=== PATIENT | male | born 1985 | race Hispanic/Latino ===

== ENCOUNTER 2017-06-11 16:51 | Emergency (ER) | payer SELFPAY ==
--- OUTSIDE RECORDS SUMMARY | 2017-06-11 16:52 | XMS REPORT ---
:1985 [facility] Address Unavailable , Allergies, Adverse Reactions, Alerts Allergy Name Reaction Description Start Date Severity Status Provider Allergies Unknown Conditions or Problems Problem Name Problem Onset Status Entry Provider Comment Standard Annotate Code Date Date Description Problems Unknown Medication List Medication Instructions Start Stop Generic NDC Status Provider Patient Date Date Name Instruction Drug Treatment Unknown - unknown
[2017-06-11] MEDS ORDERED: ONDANSETRON 4 MG/2 ML VIAL ONE (19:24)
[2017-06-11] MEDS ORDERED: Morphine 2 MG/2 ML SYR ONE ×2 (19:26→19:30)
--- NOTE | 2017-06-11 19:40 | RAD REPORT ---
EXAM DESCRIPTION: CT - Stone Protocol - 06/11/2017 7:33 pm CLINICAL HISTORY: Right-sided abdominal pain and flank pain, prior left nephrectomy COMPARISON: CT study September 2013 TECHNIQUE: Axial 5 mm thick images were obtained without oral or IV contrast. The [id number] span s the entirety of the system partially obscuring uppermost abdomen and lung bases. All CT scans are performed using dose optimization technique as appropriate and may include automated exposure control or mA/KV adjustment according to patient size. FINDINGS: No hydronephrosis is present and no obstructing ureteral calculi. No suspicious renal mass es. Isodense masses and pyelonephritis are not excluded on a stone protocol CT scan. Urinary bladder is fully contracted limiting assessment. No bladder calculi. Imaged portions of the liver, spleen and pancreas show no suspicious findings on non-contrast imaging . No gallbladder or biliary tree abnormality identified. Gallstones can be occult. No right adrenal a bnormality. No suspicious bowel findings. Appendix is normal. No hernia, mass or bulky lymphadenopathy noted. No free air, free fluid or inflammatory stranding. No significant bony abnormality. IMPRESSION: Negative noncontrast CT abdomen and pelvis for acute finding. Isodense masses and pyelonephritis are not excluded on stone protocol technique. No significant change from the prior study.
[2017-06-11 20:01] LABS: Absolute Lymphocytes (CBC) 2.7 K/uL (0.7-4.9); Absolute Monocytes 0.4 K/uL (0.1-1.3); Absolute Neutrophil 5.3 K/uL (1.8-8.0); Basophils % 0.6 % (0-1.3); Bicarbonate 27 mEq/L (21-31); Eosinophils % 1.8 % (0-4.4); Glucose Level 91 mg/dL (65-120); Hematocrit 51.5 % (39.6-49.0); Lipase 35 U/L (22-51); Lymphocytes % 31.4 % (15.3-44.8); MCH 29.9 pg (27.0-35.0); MCV 88.2 fL (80-100); MPV 9.9 fL (7.6-11.3); Monocytes % 5.1 % (3.3-12.3); Potassium 3.7 mEq/L (3.6-5.0); RBC Red Blood Cell Count 5.84 M/uL (4.33-5.43); Sodium Level 140 mEq/L (135-145)
[2017-06-11 20:08] LABS: ALT/SGPT 32 IU/L (10-60); AST/SGOT 25 IU/L (10-42); Albumin 5.3 g/dL (3.2-5.5); Alkaline Phosphatase 82 IU/L (42-121); Amylase Level 118 U/L (28-100); BUN Blood Urea Nitrogen 11 mg/dL (6-20); Bilirubin Direct < 0.1 mg/dL (0-0.2); Bilirubin Total 0.5 mg/dL (0.3-1.2); Protein, Total 8.8 g/dL (6.0-8.3)
[2017-06-11 20:22] LABS: Urine Blood TRACE (NEG); Urine Glucose NEGATIVE (NEG); Urine Protein TRACE (NEG); Urine Specific Gravity >1.030 (1.005-1.030); Urine pH 5.5 (5.0-7.0)
[2017-06-11 20:27] LABS: Urine Bacteria <20 /HPF (NONE SEEN); Urine Culture Reflex Order NOT NEEDED; Urine RBC <5 /HPF (NONE SEEN)
--- NOTE | 2017-06-11 21:02 | EDPHYS ---
Physician Documentation [facility] Name: Camden Mitchell Age: 32 yrs Sex: Male : 1985 Arrival Date: 06/11/2017 Time: 16:54 Bed 20 Private MD: ED Physician Devonte Uribe HPI: 06/11 19:20 This 32 yrs old Male presents to ER via Ambulatory with complaints of Back cp Pain. 19:20 The patient presents with pain that is acute, with no known mechanism of injury. The cp symptoms are located in the right mid back. Onset: The symptoms/episode began/occurred 2 day(s) ago. The pain radiates to the abdomen. Associated signs and symptoms: Pertinent negatives: constipation, hematuria, incontinence, numbness, tingling, vomiting, weakness. Severity of symptoms: in the emergency department the symptoms are unchanged, despite home interventions. Historical: - Allergies: 16:59 Sulfa (Sulfonamide Antibiotics); hj - Home Meds: 16:59 None [Active]; hj - PMHx: 16:59 Hypertension; hj - PSHx: 16:59 One kidney removed; hj - Immunization history:: Adult Immunizations unknown. - Social history:: Smoking status: unknown. ROS: 19:25 Constitutional: Negative for body aches, chills, fever, poor PO intake. cp 19:25 Eyes: Negative for injury, pain, redness, and discharge. cp 19:25 ENT: Negative for drainage from ear(s), ear pain, sore throat, difficulty swallowing, difficulty handling secretions. 19:25 Cardiovascular: Negative for chest pain, edema, palpitations. 19:25 Respiratory: Negative for cough, shortness of breath, wheezing. 19:25 Abdomen/GI: Positive for abdominal pain, Negative for vomiting, diarrhea, constipation, black/tarry stool, rectal bleeding. 19:25 Back: Positive for pain at rest, of the right mid back. 19:25 : Negative for hematuria, testicular pain 19:25 Skin: Negative for cellulitis, rash. 19:25 Neuro: Negative for altered mental status, headache, numbness, weakness. 19:25 All other systems are negative. Exam: 19:30 Constitutional: The patient appears in no acute distress, alert, awake, non-toxic, well cp developed, well nourished. 19:30 Head/Face: Normocephalic, atraumatic. cp 19:30 Eyes: Periorbital structures: appear normal, Conjunctiva: normal, no exudate, no injection, Sclera: no appreciated abnormality, Lids and lashes: appear normal, bilaterally. 19:30 ENT: External ear(s): are unremarkable, Nose: is normal, Mouth: Lips: moist, Oral mucosa: pink and intact, moist, Posterior pharynx: is normal, airway is patent, no erythema, no exudate. 19:30 Neck: External neck: is normal, ROM/movement: is normal, is supple, without pain, no range of motions limitations, no nuchal rigidity. 19:30 Chest/axilla: Inspection: normal, Palpation: is normal, no crepitus, no tenderness. 19:30 Cardiovascular: Rate: normal, Rhythm: regular. 19:30 Respiratory: the patient does not display signs of respiratory distress, Respirations: normal, no use of accessory muscles, no retractions, no splinting, no tachypnea, labored breathing, is not present, Breath sounds: are clear throughout, no decreased breath sounds, no stridor, no wheezing. 19:30 Abdomen/GI: Inspection: abdomen appears normal, Bowel sounds: active, all quadrants, Palpation: soft, in all quadrants, mild abdominal tenderness, in the anterior aspect of right lateral abdomen, posterior aspect of right lateral abdomen, right upper quadrant and right lower quadrant, rebound tenderness, is not appreciated, involuntary guarding, is not appreciated. 19:30 Back: pain, that is mild, of the right mid back, ROM is normal. 19:30 Skin: cellulitis, is not appreciated, no rash present. 19:30 Neuro: Motor: moves all fours, strength is normal, Sensation: no obvious gross deficits, Gait: is steady. Vital Signs: 16:59 BP 146 / 102; Pulse 81; Resp 18; Temp 98.8(TE); Pulse Ox 98% on R/A; Weight 68.04 kg; hj Height 5 ft. 5 in. (165.10 cm); Pain 8/10; 19:48 BP 133 / 84; Pulse 76; Resp 17 S; Pulse Ox 98% on R/A; Pain 6/10; jd3 20:38 BP 120 / 90; Pulse 70; Resp 17 S; Pulse Ox 97% on R/A; Pain 6/10; jd3 16:59 Body Mass Index 24.96 (68.04 kg, 165.10 cm) hj MDM: 18:54 Patient medically screened. cp 20:45 Data reviewed: vital signs, nurses notes, lab test result(s), radiologic studies, CT cp scan. 06/11 19:12 Order name: Amylase, Serum; Complete Time: 20:16 cp 06/11 20:16 Interpretation: Abnormal: JAKE 118. cp 06/11 19:12 Order name: Basic Metabolic Panel; Complete Time: 20:16 cp 06/11 20:16 Interpretation: Normal except: GFR 84. cp 06/11 19:12 Order name: CBC with Diff; Complete Time: 20:16 cp 06/11 20:16 Interpretation: Normal except: RBC 5.84; HCT 51.5. cp 06/11 19:12 Order name: Creatinine for Radiology; Complete Time: 20:16 cp 06/11 19:12 Order name: Hepatic Function; Complete Time: 20:16 cp 06/11 19:12 Order name: Lipase; Complete Time: 20:16 cp 06/11 19:12 Order name: CT Stone Protocol; Complete Time: 19:49 cp 06/11 19:12 Order name: Urine Microscopic Only; Complete Time: 20:42 cp 06/11 20:42 Interpretation: Reviewed. cp 06/11 19:12 Order name: IV Saline Lock; Complete Time: 19:32 cp 06/11 19:12 Order name: Labs collected and sent; Complete Time: 19:32 cp 06/11 19:12 Order name: Urine Dipstick-Ancillary (obtain specimen); Complete Time: 19:32 cp 06/11 19:46 Order name: Urine Dipstick--Ancillary (enter results); Complete Time: 20:42 rg2 06/11 20:42 Interpretation: Normal except: USPGR >1.030; UBLD TRACE. cp Administered Medications: 19:40 Drug: Zofran 4 mg Route: IVP; Site: right antecubital; jd3 21:23 Follow up: Response: No adverse reaction; Nausea is decreased jd3 19:40 Drug: morphine 2 mg Route: IVP; Site: right antecubital; jd3 21:23 Follow up: Response: No adverse reaction; Pain is decreased jd3 Disposition: 06/11/17 21:01 Discharged to Home. Impression: Low back pain - Right. - Condition is Stable. - Discharge Instructions: Back Pain, Adult, Back Exercises, [id number]. - Prescriptions for Cyclobenzaprine 10 mg Oral Tablet - take 1 tablet by ORAL route every 8 hours As needed; 20 tablet. Tramadol 50 mg Oral Tablet - take 1 tablet by ORAL route every 8 hours as needed; 12 tablet. - Medication Reconciliation Form, Thank You Letter, Antibiotic Education, Prescription Opioid Use form. - Follow up: Private Physician; When: 2 - 3 days; Reason: Recheck today's complaints. - Problem is new. - Symptoms have improved. Addendum: 06/16/2017 06:38 Co-signature as Attending Physician, Devonte Uribe MD Available for consultation at p s1 all times. . Signatures: Dispatcher [employer] EDBrian Russell, RN RN Jameson Moreau PA PA cp Davies, Jonathon, RN RN Devonte Kay MD MD ps1
--- NOTE | 2017-06-11 21:02 | ER ---
Nurse's Notes [facility] Name: Camden Mitchell Age: 32 yrs Sex: Male : 1985 Arrival Date: 06/11/2017 Time: 16:54 Bed 20 Private MD: Diagnosis: Low back pain-Right Presentation: 06/11 16:57 Presenting complaint: Patient states: 2 days ago, i have this sharp pain on my R upper hj back, R flank; reports fever and chills; reports nausea; denies vomiting;. Transition of care: patient was not received from another setting of care. Onset of symptoms was June 11, 2017. Initial Sepsis Screen: Does the patient meet any 2 criteria? No. Patient's initial sepsis screen is negative. Does the patient have a suspected source of infection? No. Patient's initial sepsis screen is negative. Care prior to arrival: None. 16:57 Method Of Arrival: Ambulatory 16:57 Acuity: JENNIFER 3 hj Triage Assessment: 16:59 General: Appears in no apparent distress. uncomfortable, Behavior is calm, cooperative, hj appropriate for age. Pain: Complains of pain in posterior aspect of right lateral abdomen. Musculoskeletal: Capillary refill < 3 seconds. Historical: - Allergies: 16:59 Sulfa (Sulfonamide Antibiotics); hj - Home Meds: 16:59 None [Active]; hj - PMHx: 16:59 Hypertension; hj - PSHx: 16:59 One kidney removed; hj - Immunization history:: Adult Immunizations unknown. - Social history:: Smoking status: unknown. Screenin:50 Abuse screen: Denies threats or abuse. Nutritional screening: No deficits noted. jd3 Tuberculosis screening: No symptoms or risk factors identified. Fall Risk IV access (20 points). Mental Status- Oriented to own ability (0 pts). Total Douglass Fall Scale indicates No Risk (0-24 pts). Assessment: 19:14 General: Appears in no apparent distress. uncomfortable, Behavior is calm, cooperative, jd3 appropriate for age. Pain: Complains of pain in posterior aspect of right lateral abdomen Quality of pain is described as sharp. Neuro: Level of Consciousness is awake, alert, obeys commands, Oriented to person, place, time, situation. Cardiovascular: Capillary refill < 3 seconds Patient's skin is warm and dry. Respiratory: Airway is patent Respiratory effort is even, unlabored, Respiratory pattern is regular, symmetrical, Breath sounds are clear bilaterally. GI: Abdomen is round Bowel sounds present X 4 quads. Abd is soft and non tender X 4 quads. Reports nausea. : No signs and/or symptoms were reported regarding the genitourinary system. EENT: No signs and/or symptoms were reported regarding the EENT system. Derm: Skin is intact, Skin is dry, Skin is normal, Skin temperature is warm. Musculoskeletal: Circulation, motion, and sensation intact. Range of motion: intact in all extremities. 19:49 Reassessment: Patient appears in no apparent distress at this time. Patient and/or jd3 family updated on plan of care and expected duration. Pain level reassessed. Patient is alert, oriented x 3, equal unlabored respirations, skin warm/dry/pink. 20:39 Reassessment: Patient appears in no apparent distress at this time. Patient and/or jd3 family updated on plan of care and expected duration. Pain level reassessed. Patient is alert, oriented x 3, equal unlabored respirations, skin warm/dry/pink. 21:20 Reassessment: Patient appears in no apparent distress at this time. Patient and/or jd3 family updated on plan of care and expected duration. Pain level reassessed. Patient is alert, oriented x 3, equal unlabored respirations, skin warm/dry/pink. pt reported understanding of discharge instructions, even and steady gait upon discharge. Vital Signs: 16:59 BP 146 / 102; Pulse 81; Resp 18; Temp 98.8(TE); Pulse Ox 98% on R/A; Weight 68.04 kg; Height 5 ft. 5 in. (165.10 cm); Pain 8/10; 19:48 BP 133 / 84; Pulse 76; Resp 17 S; Pulse Ox 98% on R/A; Pain 6/10; jd3 20:38 BP 120 / 90; Pulse 70; Resp 17 S; Pulse Ox 97% on R/A; Pain 6/10; jd3 16:59 Body Mass Index 24.96 (68.04 kg, 165.10 cm) ED Course: 16:54 Patient arrived in ED. mr 16:58 Triage completed. 16:59 Arm band placed on left wrist. 18:54 Jameson Santana PA is PHCP. 18:54 Alpesh Tracy MD is Attending Physician. cp 19:10 Devonte Uribe MD is Attending Physician. cp 19:13 Jeffrey Wu, RN is Primary Nurse. jd3 19:18 Initial lab(s) drawn, by me, sent to lab. Inserted saline lock: 20 gauge in right cc antecubital area, using aseptic technique. Blood collected. 19:32 CT completed. Patient tolerated procedure well. Patient moved to CT via wheelchair. Patient moved back from CT. 19:33 CT Stone Protocol In Process Unspecified. EDMS 19:50 Patient has correct armband on for positive identification. Bed in low position. Call j light in reach. Side rails up X 1. 21:19 No provider procedures requiring assistance completed. IV discontinued, intact, jd3 bleeding controlled, No redness/swelling at site. Pressure dressing applied. Administered Medications: 19:40 Drug: Zofran 4 mg Route: IVP; Site: right antecubital; jd3 21:23 Follow up: Response: No adverse reaction; Nausea is decreased jd3 19:40 Drug: morphine 2 mg Route: IVP; Site: right antecubital; jd3 21:23 Follow up: Response: No adverse reaction; Pain is decreased jd3 Outcome: 21:01 Discharge ordered by MD. cp 21:21 Discharged to home ambulatory, with family. jd3 21:21 Condition: stable 21:21 Discharge instructions given to patient, Instructed on discharge instructions, follow up and referral plans. medication usage, Demonstrated understanding of instructions, follow-up care, medications, Prescriptions given X 2. 21:23 Patient left the ED. jd3 Signatures: Dispatcher [employer] EDCO Nae Mcgovern SanjanaYaniv Emmy Flores Henry, MARY RN Jameson Moreau PA PA cp Jeffrey Wu, MARY RN jd3
[2017-06-11 21:50] VITALS: TEMP 98.8
[2017-06-11 21:53] VITALS: BP 120/90; O2SAT 97
== END 2017-06-11 21:23 | disposition home or self-care (01) ==
LOC: ER 16:51
DX: M54.5 Low back pain (principal); I10 Essential (primary) hypertension; Z88.2 Allergy status to sulfonamides
CPT/HCPCS: 36415; 74176; 76377; 80048; 80076; 81003; 81015; 82150; 83690; 85025; 96374; 96375; 99284; J2270; J2405

== ENCOUNTER 2019-06-16 22:05 | Emergency (ER) | payer OTHER, SELFPAY ==
--- NOTE | 2019-06-16 22:52 | ER ---
Nurse's Notes [facility] Name: Camden Mitchell Age: 34 yrs Sex: Male : 1985 Arrival Date: 06/16/2019 Time: 22:06 Bed 20 Private MD: Diagnosis: Lower abdominal pain, unspecified Presentation: 06/15 22:19 Chief complaint: Patient states: I THINK I SWALLOWED MY "GRILL" LAST WEDNESDAY. I WAS rv DRUNK AND FELL ASLEEP WITH BOTH ON MY TEETH, I WOKE UP WITH JUST ONE ON THE BOTTOM OF MY TEETH. WEDNESDAY STARTED HAVING PAIN ON RUQ, THEN MOVED DOWN TO LLQ. PAIN SCALE OF 10/10. Coronavirus screen: Proceed with normal triage. Ebola Screen: No symptoms or risks identified at this time. Initial Sepsis Screen: Does the patient meet any 2 criteria? No. Patient's initial sepsis screen is negative. Does the patient have a suspected source of infection? No. Patient's initial sepsis screen is negative. Risk Assessment: Do you want to hurt yourself or someone else? Patient reports no desire to harm self or others. 22:19 Method Of Arrival: Ambulatory 22:19 Acuity: JENNIFER 4 rv 22:25 Onset of symptoms was June 10, 2019 at 08:00. rv Triage Assessment: 22:23 General: Appears uncomfortable, Behavior is calm, cooperative. Pain: Complains of pain rv in left lower quadrant Pain currently is 10 out of 10 on a pain scale. EENT: No signs and/or symptoms were reported regarding the EENT system. Neuro: Level of Consciousness is awake, alert, obeys commands, Oriented to person, place, time, situation. Cardiovascular: Patient's skin is warm and dry. Respiratory: Airway is patent. GI: Abdomen is round non-distended, Bowel sounds present X 4 quads. Abdomen is tender to palpation in left lower quadrant Reports lower abdominal pain, nausea. Historical: - Allergies: 22:23 Sulfa (Sulfonamide Antibiotics); rv - Home Meds: 22:23 None [Active]; rv - PMHx: 22:23 Hypertension; rv - PSHx: 22:23 Hernia repair; LEFT KIDNEY REMOVED; rv - Immunization history:: Adult Immunizations up to date, Last tetanus immunization: up to date. - Social history:: Smoking status: Patient/guardian denies using tobacco, Stopped _ months ago 6. Screenin:25 Abuse screen: Denies threats or abuse. Denies injuries from another. Nutritional rv screening: No deficits noted. Tuberculosis screening: No symptoms or risk factors identified. Fall Risk None identified. Assessment: 22:50 Reassessment: refused blood work Patient states feeling better. General:. rv Vital Signs: 22:19 BP 151 / 103; Pulse 82; Resp 18; Temp 98.6; Pulse Ox 99% ; Weight 86.18 kg; Height 5 rv ft. 5 in. (165.10 cm); Pain 10/10; 22:19 Body Mass Index 31.62 (86.18 kg, 165.10 cm) rv ED Course: 22:06 Patient arrived in ED. ds1 22:10 Felicity Singer FNP-C is PHCP. kb 22:10 Sarmad Ramos MD is Attending Physician. kb 22:10 Ricardo Bay, MARY is Primary Nurse. rv 22:22 Triage completed. rv 22:23 Arm band placed on Patient placed Patient notified of wait time. rv 22:25 Patient has correct armband on for positive identification. Pulse ox on. NIBP on. rv 22:45 Abdomen 1 View (KUB) XRAY In Process Unspecified. EDMS 22:50 No provider procedures requiring assistance completed. Patient did not have IV access rv during this emergency room visit. Administered Medications: No medications were administered Outcome: 22:50 Discharged to home ambulatory. rv 22:50 Condition: good 22:50 Discharge instructions given to patient, Instructed on discharge instructions, follow up and referral plans. Demonstrated understanding of instructions, follow-up care. 22:51 Discharge ordered by . kb 22:51 Patient left the ED. rv Signatures: Dispatcher [employer] EDMS Felicity Singer FNP-C FNP-Ckb Sanford, Demi ds1 Ricardo Bay, RN RN rv
--- NOTE | 2019-06-16 22:52 | EDPHYS ---
Physician Documentation [facility] Name: Camden Mitchell Age: 34 yrs Sex: Male : 1985 Arrival Date: 06/16/2019 Time: 22:06 Bed 20 Private MD: ED Physician Sarmad Ramos HPI: 06/15 22:52 This 34 yrs old Male presents to ER via Ambulatory with complaints of kb Swallowed Foreign Body. 22:53 The patient presents with abdominal pain in the left lower quadrant. Onset: The kb symptoms/episode began/occurred 3 day(s) ago. The symptoms do not radiate. Associated signs and symptoms: none. The symptoms are described as constant. Modifying factors: The symptoms are alleviated by nothing, the symptoms are aggravated by nothing. Severity of pain: At its worst the pain was moderate in the emergency department the pain is unchanged. The patient has not experienced similar symptoms in the past. The patient has not recently seen a physician. Pt reports LLQ pain that started on Wednesday. States the only thing he could think of that would cause it was that he may have swallowed his top grill on Wednesday night when he was drunk. Came to get an x-ray to see if he swallowed it. . Historical: - Allergies: 22:23 Sulfa (Sulfonamide Antibiotics); rv - Home Meds: 22:23 None [Active]; rv - PMHx: 22:23 Hypertension; rv - PSHx: 22:23 Hernia repair; LEFT KIDNEY REMOVED; rv - Immunization history:: Adult Immunizations up to date, Last tetanus immunization: up to date. - Social history:: Smoking status: Patient/guardian denies using tobacco, Stopped _ months ago 6. ROS: 22:52 Constitutional: Negative for fever, chills, and weight loss, Cardiovascular: Negative kb for chest pain, palpitations, and edema, Respiratory: Negative for shortness of breath, cough, wheezing, and pleuritic chest pain, Back: Negative for injury and pain, MS/Extremity: Negative for injury and deformity, Skin: Negative for injury, rash, and discoloration, Neuro: Negative for headache, weakness, numbness, tingling, and seizure. 22:52 Abdomen/GI: Positive for abdominal pain, Negative for nausea, vomiting, and diarrhea, constipation, abdominal cramps, abdominal distension, anorexia. Exam: 22:52 Constitutional: This is a well developed, well nourished patient who is awake, alert, kb and in no acute distress. Head/Face: Normocephalic, atraumatic. Neck: Trachea midline, no thyromegaly or masses palpated, and no cervical lymphadenopathy. Supple, full range of motion without nuchal rigidity, or vertebral point tenderness. No Meningismus. Chest/axilla: Normal chest wall appearance and motion. Nontender with no deformity. No lesions are appreciated. Cardiovascular: Regular rate and rhythm with a normal S1 and S2. No gallops, murmurs, or rubs. Normal PMI, no JVD. No pulse deficits. Respiratory: Lungs have equal breath sounds bilaterally, clear to auscultation and percussion. No rales, rhonchi or wheezes noted. No increased work of breathing, no retractions or nasal flaring. Back: No spinal tenderness. No costovertebral tenderness. Full range of motion. Skin: Warm, dry with normal turgor. Normal color with no rashes, no lesions, and no evidence of cellulitis. MS/ Extremity: Pulses equal, no cyanosis. Neurovascular intact. Full, normal range of motion. Neuro: Awake and alert, GCS 15, oriented to person, place, time, and situation. Cranial nerves II-XII grossly intact. Motor strength 5/5 in all extremities. Sensory grossly intact. Cerebellar exam normal. Normal gait. 22:52 Abdomen/GI: Inspection: abdomen appears normal, Bowel sounds: normal, in all quadrants, Palpation: soft, in all quadrants, nontender, in the right upper quadrant, left upper quadrant and right lower quadrant, moderate abdominal tenderness, in the left lower quadrant. Vital Signs: 22:19 BP 151 / 103; Pulse 82; Resp 18; Temp 98.6; Pulse Ox 99% ; Weight 86.18 kg; Height 5 rv ft. 5 in. (165.10 cm); Pain 10/10; 22:19 Body Mass Index 31.62 (86.18 kg, 165.10 cm) rv MDM: 22:10 Patient medically screened. kb 22:49 Data reviewed: vital signs, nurses notes. Data interpreted: Pulse oximetry: on room air kb is 99 %. Interpretation: normal. Counseling: I had a detailed discussion with the patient and/or guardian regarding: the historical points, exam findings, and any diagnostic results supporting the discharge/admit diagnosis, radiology results, the need for outpatient follow up, a family practitioner, to return to the emergency department if symptoms worsen or persist or if there are any questions or concerns that arise at home. ED course: Offered to check labs and possible CT to further evaluate pain. Pt does not want anything else done, just wanted an x-ray to make sure he didn't swallow his grill. 06/15 22:17 Order name: Abdomen 1 View (KUB) XRAY ludy Administered Medications: No medications were administered Disposition: 23:37 Co-signature as Attending Physician, Sarmad Ramos MD. charley Disposition: 06/16/19 22:51 Discharged to Home. Impression: Lower abdominal pain, unspecified. - Condition is Stable. - Discharge Instructions: Abdominal Pain, Adult, [id number]. - Medication Reconciliation Form, Thank You Letter, Antibiotic Education, Prescription Opioid Use form. - Follow up: Emergency Department; When: As needed; Reason: Worsening of condition. Follow up: Private Physician; When: 2 - 3 days; Reason: Recheck today's complaints, Continuance of care, Re-evaluation by your physician. Signatures: Dispatcher [employer] EDMS Felicity Singer, SOLUTION SPECIALIST-C SOLUTION SPECIALIST-CkSarmad Watson MD MD pkl Vicente, Ronaldo, RN RN rv Corrections: (The following items were deleted from the chart) 22:51 22:51 06/16/2019 22:51 Discharged to Home. Impression: Lower abdominal pain, rv unspecified. Condition is Stable. Forms are Medication Reconciliation Form, Thank You Letter, Antibiotic Education, Prescription Opioid Use. Follow up: Emergency Department; When: As needed; Reason: Worsening of condition. Follow up: Private Physician; When: 2 - 3 days; Reason: Recheck today's complaints, Continuance of care, Re-evaluation by your physician. kb
[2019-06-17 00:16] VITALS: BP 151/103; TEMP 98.6; O2SAT 99
--- NOTE | 2019-06-17 09:16 | RAD REPORT ---
EXAM DESCRIPTION: RAD - Abdomen 1 View (KUB) - 06/16/2019 10:46 pm CLINICAL HISTORY: Abdomen pain. FINDINGS: The bowel gas pattern is unremarkable. Surgical clips within the left abdomen. A radiopaque foreign body is not seen
== END 2019-06-16 22:51 | disposition home or self-care (01) ==
LOC: ER 22:05
DX: R10.32 Left lower quadrant pain (principal); I10 Essential (primary) hypertension; Z88.2 Allergy status to sulfonamides
CPT/HCPCS: 74018; 99283

== ENCOUNTER 2019-09-14 22:12 | Emergency (ER) | payer OTHER ==
--- OUTSIDE RECORDS SUMMARY | 2019-09-14 22:16 | XMS REPORT | Continuity of Care Document ---
:1985 Author Organization [facility] t Address [address] [place] [address] Care Team Providers Name Role Phone YOLANDA Attending Clinician Unavailable MJ Attending Clinician Unavailable JARROD Attending Clinician Unavailable ARNOLD Attending Clinician Unavailable MIHAI Attending Clinician Unavailable SHANON Attending Clinician Unavailable Payers Payer Name Policy Type Policy Number Effective Date Expiration Date S ource Problems Condition Condition Condition Status Onset Resolution Last Treating Co mments Source Name Details Category Date Date Treatment Clinician Date History of History of Problem Resolve [facility] post post [place] traumatic [place] stress stress Physici disorder disorder ans History of History of Problem Resolve Univers Chronic Chronic d ity of headache headache [place] Physici ans History of History of Problem Resolve Univers depressed depressed d ity of bipolar bipolar [place] disorder disorder Physic i ans History of History of Problem Resolve Univers high high [place] ity of cholestero cholestero [place] Physici ans History of History of Problem Resolve Univers hypertensi hypertensi d it y of on on [place] Physici ans Acute Acute Problem Active Univers midline midline ity of low back low back [place] pain pain Physici without without ans sciatica sciatica Back pain Back pain Problem Active Uni vers ity of [place] Physici ans Sleeping Sleeping Problem Active Unive rs difficulti difficulti it y of es es [place] Physici ans PTSD PTSD Problem Active Univers (post-trau (post-trau it y of matic matic [place] stress stress Physici disorder) disorder) ans Bipolar Bipolar Problem Active Univers depression depression it y of [place] Physici ans Anxiety Anxiety Problem Active Univers ity of [place] Physici ans 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 ity of [place] Physici ans Allergies, Adverse Reactions, Alerts Allergy Allergy Status Severity Reaction(s) Onset Inactive Treating Comm ents Source Name Type Date Date Clinician Sulfa DA Active U [facility] (Sulfona 2 [place] mide 00:00: [facility] Antibiot 00 are ics) Cora sulfa Allergy Active Univers to drug ity of (finding [place] ) Physici ans Family History Family Member Diagnosis Comments Start Date Stop Date Source uncle Family history of Univers ity of [place] schizophrenia Physicians uncle [facility] of [facility] [place] (post-traumatic stress Ph ysicians disorder) Mother Family history of Univers ity of [place] Anxiety Physicians Medications Ordered Filled Start Stop Current Ordering Indication Dosage Frequency Signature Comments Components Source Medication Medication Date Date Medication? Clinician (SIG) Name Name Prazosin Prazosin Yes [place] 1 TAKE 1 Univers HCl - 1 MG HCl - 1 MG 6-19 MJ M.D. CAPSULE ity of Oral Oral 00:00: BEDTIME [place] Capsule Capsule 00 Physici ans traZODone traZODone 2018-02 Yes [place] TAKE 1 TO Univers HCl - 50 MG HCl - 50 MG 0-22 MJ M.D. 2 TABLETS ity of Oral Tablet Oral Tablet 00:00: AT BEDTIME [place] 00 Physici ans hydrOXYzine hydrOXYzine 2018-02 Yes [place] 1 Q0.5D TAKE 1 Univers HCl - 50 MG HCl - 50 MG 0-22 MJ M.D. TABLET ity of Oral Tablet Oral Tablet 00:00: TWICE [place] 00 DAILY Physici NEEDED. ans busPIRone busPIRone Yes [place] 1 Q0.5D TAKE ONE Univers HCl - 10 MG HCl - 10 MG 8-12 MJ M.D. TABLET BY ity of Oral Tablet Oral Tablet 00:00: MOUTH [place] 00 TWICE A Physici DAY ans Latuda 40 Latuda 40 Yes SIDHART[place] TAKE 1 Univers MG Oral MG Oral 8-12 MJ M.D. TABLET BY ity of Tablet Tablet 00:00: MOUTH [place] 00 EVERY DAY Physici ans diazePAM 5 diazePAM 5 2017-02 Yes ALPESH TAKE 1 Univers MG Oral MG Oral 0-23 SHANON TABLET AT ity of Tablet Tablet 00:00: M.D. BEDTIME Jarvis as 00 NEEDED. Physici ans predniSONE predniSONE 2017-02 Yes ALPESH TAPER Univers 20 MG Oral 20 MG Oral 0-23 SHANON Instructio ity of Tablet Tablet 00:00: M.D. ns - TAKE [place] 00 3 PILLS, Physici BY MOUTH, ans DAILY X 5 DAYSTHEN 2 PILLS DAILY X 5 DAYSTHEN 1 PILL DAILY X 5 DAYS, UNTIL COMPLETE Acetaminoph Acetaminoph 2017-02 Yes ALPESH TAKE 1 Univers en-Codeine en-Codeine 0-23 SHANON TABLET ity of #3 300-30 #3 300-30 00:00: M.D. EVERY 6 TO [place] MG Oral MG Oral 00 8 HOURS Phy sici Tablet Tablet NEEDED FOR ans PAIN. Lisinopril Lisinopril Yes 1 tablet Univers 5 MG Oral 5 MG Oral at bedtime ity of Tablet Tablet [place] Physici ans amLODIPine amLODIPine Yes 1 tablet Univers Besylate 5 Besylate 5 at bedtime ity of MG Oral MG Oral [place] Tablet Tablet Physici ans Xanax 1 MG Xanax 1 MG Yes 1 table in Univers Oral Tablet Oral Tablet the i ty of morning [place] and 1 Physici tablet in ans the afternoon Vital Signs Vital Name Observation Time Observation Value Comments Source BP Systolic 2019-03-24 113 mm[Hg] Location: [facility] 11:08:00 Position: [place] Physician s Sitting BP Diastolic 2019-03-24 74 mm[Hg] Location: [facility] 11:08:00 Position: [place] Physician s Sitting Height 2019-03-24 167.6 cm [facility] 11:08:00 [place] Physician s Weight 2019-03-24 195.125 [lb_av] University o f 11:08:00 [place] Physician s Body Mass Index 2019-03-24 31.51 kg/m2 [facility] f Calculated 11:08:00 [place] Physician s Temperature 2019-03-24 98.6 [degF] Method: Oral [facility] 11:08:00 [place] Physician s Heart Rate 2019-03-24 80 /min Location: [facility] 11:08:00 Brachial [place] Physician s Artery; Quality: Normal Respiration Rate 2019-03-24 18 /min Quality: Normal Universi ty of 11:08:00 [place] Physician s O2 SAT 2019-03-24 97 % Source: [facility] 11:08:00 [place] Physician s BP Systolic 2019-02-13 111 mm[Hg] Location: [facility] 27:00 Position: [place] Physician s Sitting BP Diastolic 2019-02-13 75 mm[Hg] Location: [facility] 27:00 Position: [place] Physician s Sitting Height 2019-02-13 167.6 cm [facility] :27:00 [place] Physician s Weight 2019-02-13 193.25 [lb_av] [facility] :27: [place] Physician s Body Mass Index 2019-02-13 31.21 kg/m2 [place] [facility] f Calculated :27:00 [place] Physician s Temperature 2019-02-13 98.3 [degF] Method: Oral [facility] :27:00 [place] Physician s Heart Rate 2019-02-13 65 /min Location: L [facility] : Brachial [place] Physician s Artery; Quality: Normal Respiration Rate 2019-02-13 18 /min Quality: Normal Universi ty of :: [place] Physician s O2 SAT 2019-02-13 98 % Source: [facility] : [place] Physician s BP Systolic 2018-12-06 116 mm[Hg] Location: [facility] 36:00 Position: [place] Physician s Sitting BP Diastolic 2018-12-06 78 mm[Hg] Location: [facility] 36:00 Position: [place] Physician s Sitting Height 2018-12-06 66 [in_us] University of :36:00 [place] Physician s Weight 2018-12-06 194.8 [lb_av] University :36:00 [place] Physician s Body Mass Index 2018-12-06 31.44 kg/m2 University o f Calculated :36:00 [place] Physician s Temperature 2018-12-06 97.7 [degF] Method: Oral [facility] of :36:00 [place] Physician s Heart Rate 2018-12-06 68 /min Location: R [facility] :36:00 Brachial [place] Physician s Artery; Quality: Normal Respiration Rate 2018-12-06 18 /min Quality: Normal Universi ty of :36:00 [place] Physician s O2 SAT 2018-12-06 97 % Source: [facility] 09:36:00 [place] Physician s BP Systolic 2018-09-26 112 mm[Hg] Location: [facility]; [facility] of 13:45:00 Position: [place] Physician s Sitting BP Diastolic 2018-09-26 74 mm[Hg] Location: [facility]; [facility] 13:45:00 Position: [place] Physician s Sitting Height 2018-09-26 66 [in_us] University of 13:45:00 [place] Physician s Weight 2018-09-26 195.5 [lb_av] University of 13:45:00 [place] Physician s Body Mass Index 2018-09-26 31.55 kg/m2 University o f Calculated 13:45:00 [place] Physician s Respiration Rate 2018-09-26 20 /min Quality: Normal Universi ty of 13:45:00 [place] Physician s Heart Rate 2018-09-26 82 /min Quality: University 13:45:00 Regular [place] Physician s Temperature 2018-09-26 99 [degF] Method: [facility] of 13:45:00 [place] Physician s BP Systolic 2018-09-22 128 mm[Hg] [facility] 14:[facility] Position: [place] Physician s Sitting BP Diastolic 2018-09-22 86 mm[Hg] [facility] 14[facility] Position: [place] Physician s Sitting Height 2018-09-22 66 [in_us] University of 14:02:00 [place] Physician s Weight 2018-09-22 197.4 [lb_av] University of 14:02:00 [place] Physician s Body Mass Index 2018-09-22 31.86 kg/m2 University o f Calculated 14:02:00 [place] Physician s Temperature 2018-09-22 98.5 [degF] Method: Oral University of 14:02:00 [place] Physician s Heart Rate 2018-09-22 83 /min Location: [place] of 14:02:00 Brachial [place] Physician s Artery; Quality: Normal Respiration Rate 2018-09-22 18 /min Quality: Normal Universi ty of 14:02:00 [place] Physician s O2 SAT 2018-09-22 98 % Source: [facility] of 14:02:00 [place] Physician s BP Systolic 2017-12-07 134 mm[Hg] University of 15:55:00 [place] Physician s BP Diastolic 2017-12-07 82 mm[Hg] University of 15:55:00 [place] Physician s Height 2017-12-07 66 [in_us] [facility] 15:55:00 [place] Physician s Weight 2017-12-07 187 [lb_av] [facility] 15:55:00 [place] Physician s Body Mass Index 2017-12-07 30.18 kg/m2 University o f Calculated 15:55:00 [place] Physician s Heart Rate 2017-12-07 79 /min [facility] 15:55:00 [place] Physician s Procedures Procedure Date / Time Performing Clinician Source Performed [U] XRAY SPINE 2017-12-06 00:00:00 [place] [facility] f [place] LUMBOSACRAL MIN 4 VWS Physicians [id number] History of Kidney [facility] surgery Physicians History of Hernia [facility] Repair Physicians Encounters Start End Encounter Admission Attending Care Care Encounter Source Date/Time Date/Time Type Type Clinicians Facility Department ID 2019-08-16 2019-08-16 ABDULAZIZ Fernádnez [id number] Univers 13:00:00 13:00:00 t; ZITA GUERRERO ity of NOELLE, LCSW [facility] Physici ans 2019-08-04 2019-08-04 ABDULAZIZ Millan [id number] Univers 13:30:00 13:30:00 t; YAMEL BARKER ity of [place], M.D. [place] M.D. Physici ans 2019-06-02 2019-06-02 AppointABDULAZIZ Martinez Mult[facility] [id number] Univers 15:00:00 15:00:00 t; YAMEL BARKER lty - ity of [place], M.D. [facility] [place] M.D. Physici ans 2019-04-07 2019-04-07 Emergency E [facility] [address] 0052 [facility] 17:15:00 17:15:00 2019-03-24 2019-03-24 ABDULAZIZ Millan Multispecia [id number] Univers 15:00:00 15:00:00 t; YAMEL BARKER lty - ity of [place], M.D. [facility] [place] M.D. Physici ans 2019-03-01 2019-03-01 ABDULAZIZ Fernández UTP [id number] Univers 11:30:00 11:30:00 t; ZITA GUERRERO ity of NOELLE [facility] Physici ans 2019-02-13 2019-02-13 Appointmen [facility] Multispecia [id number] Univers 09:30:00 09:30:00 t; YAMEL BARKER, lty - ity [facility] 2018-12-06 2018-12-06 Appointmen [facility] Multispecia [id number] Univers 09:30:00 09:30:00 t; YAMEL BARKERTA, lty - ity of [facility] ans 2018-11-11 2018-11-11 Appointmen [facility] [id number] Univers 10:30:00 10:30:00 t; YAMEL BARKER, ity of Michael [facility] ans 2018-11-08 2018-11-08 Appointmen [facility] Multispecia [id number] Univers 15:30:00 15:30:00 t; YAMEL BARKER, lty - ity of Michael MONTESINOS [facility] Phys[facility] ans 2018-11-01 2018-11-01 Appointmen [facility] [id number] Univers 15:30:00 15:30:00 t; YAMEL BARKERTA, ity of Michael MONTESINOS [facility] Physici ans 2018-10-19 2018-10-19 Appointmen ABDULAZIZ GUERRERO [id number] Univers 08:3000 08:30:00 t; ZITA [facility]ERRERO, [facility] 2018-09-26 2018-09-26 Appointmen [facility] Multispecia [id number] Univers 14:00:00 14:00:00 t; YAMEL BARKERTA, lty - ity of [facility] ans 2018-09-22 2018-09-22 Appointmen JARRODABDULAZIZ Multispecia [id number] Univers 14:00:00 14:00:00 t; lt ANGELIQUEy - ity of Michael GARAY Physi ci M.D. ans 2018-08-29 2018-08-29 Appointmen ABDULAZIZ BARRETT Multispecia [id number] Univers 16:00:00 16:00:00 t; Michael RECINOS lty - it y of Snow BARRETT Physici M.D. ans 2018-08-22 2018-08-22 Outpatient [facility] ABELINO [id number] [facility] 07:25:00 07:25:00 2018-08-20 2018-08-20 Emergency E [facility]NW 7509 [facility] 22:35:00 22:35:00 2018-02-02 2018-02-02 Appointmen MIHAI [facility] [id number] Univers 09:00:00 09:00:00 t; VINCENT HOLM M.D. ity of Kobi KAUR M.D. Physicangeline ans 2017-12-07 2017-12-07 Appointmen ABDULAZIZ CLAUDIO [facility] [id number] Univers 15:30:00 15:30:00 t; Michael PEREZ it y of [place] CLAUDIO Physici M.D. ans 2017-12-03 2017-12-03 Appointmen ABDULAZIZ CLAUDIO [facility] [id number] Univers 09:15:00 09:15:00 t; Michael PEREZ y of [place] CLAUIDO Physici M.D. ans Results Test Description Test Time Test Comments Results Result [facility] e Comments - XR CHEST 1 V 2019-09-11 Patient Name: 15:48:00 JOSE RAMOS Unit No: [id number] EXAMS: CPT: [id number] XR CHEST 1 V 22307 To: Cough Portable AP chest compared to 08/06/2019: The heart size and mediastinum are within normal limits. The lungs are free of infiltrates or nodules. The bones are within normal limits. IMPRESSION: No significant cardiopulmonary abnormalities. at 1548 Reported and signed by: Monty Ye MD CC: Aquiles Bell MD; Victor Manuel Crystal Technologist: Alpesh Velázquez Fluoro Time: DAP (Gy m2): Air Kerma (mGy): Trscr Dt/Tm: 09/11/2019 (1548) by:[email or web address] Orig Print D/T: S: 09/11/2019 (1551) BATCH NO: N/A Name: JOSE RAMOS [facility] Phys: [id number] - Victor Manuel [facility] [address] [facility] 1985 Age: 34 Sex: [place] [address] Loc: N.ERS Exam Date: 09/11/2019 Status: REG ER PH: FAX: PAGE 1 Signed Report - XR CHEST 1 V 2019-08-06 Patient Name: 13:03:00 JOSE RAMOS Unit No: [id number] EXAMS: CPT: [id number] XR CHEST 1 V 43180 CHEST 1 VIEW HISTORY: cough COMPARISON: 08/04/2019. FINDINGS: Cardiac silhouette is normal size. No pulmonary vascular congestion seen. No consolidation or large pleural effusion. No pneumothorax. IMPRESSION: No acute chest findings. at 1303 Reported and signed by: Maru Gold MD CC: Aquiles Bell MD; GENERIC FOR [facility]; Antonino Urbina MD Technologist: Daryl Pearson Fluoro Time: DAP (Gy m2): Air Kerma (mGy): Trscr Dt/Tm: 08/06/2019 (1303) by:[email or web address] Orig Print D/T: S: 08/06/2019 (1306) BATCH NO: N/A Name: JOSE RAMOS [facility] Cora Phys: KHLIZBETHU. - Antonino Urbina MD [address] [facility] : 1985 Age: 34 Sex: M [place] Marte Loc: T.ERS Exam Date: 08/06/2019 Status: REG ER PH: FAX: PAGE 1 Signed Report - XR CHEST 1 V 2019-08-04 Patient Name: 11:27:00 JOSE RAMOS Unit No: [id number] EXAMS: CPT: [id number] XR CHEST 1 V 97148 CHEST, 1 VIEW, AP PORTABLE: HISTORY: COUGH COMPARISON: 07/10/2019 FINDINGS: The lungs are clear and the cardiovascular silhouette is normal. No pleural effusion or pneumothorax is present. IMPRESSION: Normal chest. There has been no significant change since the previous examination. at 1127 Reported and signed by: Ab Beltre MD CC: Aquiles Bell MD; Alpesh Andrade MD Technologist: Santo Velázquez Fluoro Time: DAP (Gy m2): Air Kerma (mGy): Trscr Dt/Tm: 08/04/2019 (1126) by:[email or web address] Orig Print D/T: S: 08/04/2019 (1129) BATCH NO: N/A Name: RAMOSKORI [facility] ED Phys: Alpesh Vaughan MD [address] [facility] : 1985 Age: 34 Sex: [place] [address] Loc: N.ERS Exam Date: 08/04/2019 Status: REG ER PH: FAX: PAGE 1 Signed Report - XR CHEST 2 V 2019-07-10 Patient Name: 19:27:00 JOSE RAMOS Unit No: [id number] EXAMS: CPT: [id number] XR CHEST 2 V 91505 CHEST RADIOGRAPHS - 2 view COMPARISON: April 30, 2019 CLINICAL HISTORY: COUGH. FINDINGS: Cardiac silhouette is normal in size. The hilar regions and pulmonary vasculature are unremarkable. No consolidation or effusion is seen. IMPRESSION: No acute disease. at 1927 Reported and signed by: Jim Jimenez MD CC: Aquiles Bell MD Technologist: Angelique Chaves Fluoro Time: DAP (Gy m2): Air Kerma (mGy): Trscr Dt/Tm: 07/10/2019 (1926) by:[email or web address] Orig Print D/T: S: 07/10/2019 (193) BATCH NO: N/A Name: JOSE RAMOS [facility] ED Phys: EDDOC - EDDOC, GENERIC FOR EDM [address] : 1985 Age: 34 Sex: [place] [address] Loc: N.ERS Exam Date: 07/10/2019 Status: PRE ER PH: FAX: PAGE 1 Signed Report - XR CHEST 2 V 2019-04-30 Patient Name: 00:16:00 JOSE RAMOS Unit No: [id number] EXAMS: CPT: [id number] XR CHEST 2 V 76124 CHEST 2 VIEWS, 04/30/2019. COMPARISON: 04/06/2019 CLINICAL: Cough. COMMENT: The heart, mediastinum, hilar regions and pulmonary vasculature appear within normal limits. The lungs are free of active disease. The bony thorax is intact. IMPRESSION: No evidence to suggest active cardiopulmonary disease. at 0016 Reported and signed by: Eh Morales MD CC: Aquiles Bell MD Technologist: Humaira Goodman Time: DAP (Gy m2): Air Kerma (mGy): Trscr Dt/Tm: 04/30/2019 (0016) by:[email or web address] Orig Print D/T: S: 04/30/2019 (0019) BATCH NO: N/A Name: JOSE RAMOS [facility] Phys: Magaly Coleman NAILHEAD PUNCHER [address] : 1985 Age: 34 Sex: [place] [address] Loc: N.ERS Exam Date: 04/29/2019 Status: PRE ER PH: FAX: PAGE 1 Signed Report - XR CHEST 2 V 2019-04-06 Patient Name: 17:53:00 JOSE RAMOS Unit No: [id number] EXAMS: CPT: [id number] XR CHEST 2 V 99614 Comparison study: 03/18/2019 History: Cough CHEST 2 VIEWS FINDINGS: The lungs are clear. The heart size and pulmonary vasculature are within normal limits. No pleural effusion or pneumothorax is present. No acute fracture is identified. IMPRESSION: 1. No acute abnormality is identified. at 1753 Reported and signed by: Devon Amin MD CC: Victor Manuel Crystal; Doc No Technologist: SALAZAR PITTMAN Fluoro Time: DAP (Gy m2): Air Kerma (mGy): Trscr Dt/Tm: 04/06/2019 (175) by:[email or web address] Orig Print D/T: S: 04/06/2019 (841) BATCH NO: N/A Name: JOSE RAMOS [facility] ED Phys: [id number] - Victor Manuel Crystal APR [address] : 1985 Age: 34 Sex: M [place] [address] Loc: N.ERS Exam Date: 04/06/2019 Status: REG ER PH: FAX: PAGE 1 Signed Report - XR CHEST 2 V 2019-03-18 Patient Name: 22:53:00 JOSE RAMOS Unit No: [id number] EXAMS: CPT: [id number] XR CHEST 2 V 75858 CHEST 2 VIEWS, 03/18/2019. COMPARISON: None. CLINICAL: Cough. COMMENT: The heart, mediastinum, hilar regions and pulmonary vasculature appear within normal limits. The lungs are free of active disease. The bony thorax is intact. IMPRESSION: No evidence to suggest active cardiopulmonary disease. at 2253 Reported and signed by: Eh Morales MD CC: Technologist: Doreen Chaves Fluoro Time: DAP (Gy m2): Air Kerma (mGy): Trscr Dt/Tm: 03/18/2019 (654) by:[email or web address] Orig Print D/T: S: 03/18/2019 (0866) BATCH NO: N/A Name: JOSE RAMOS [facility] ED Phys: Magaly Coleman NAILHEAD PUNCHER [address] : 1985 Age: 34 Sex: M [place] [id number] Loc: N.ERS Exam Date: 03/18/2019 Status: REG ER PH: FAX: PAGE 1 Signed Report Troponin I 2018-10-30 18:49:54 Test Item Value Reference Range Interpretation Comme nts Troponin-I (test code = <0.05 ng/mL 0.00-0.05 Valu es of <0.05 ng/mL are Troponin-I) considered nega tive. Values 0.40 ng/mL ar e considered indicative of m yocardial injury. Values 0.05 t o 0.39 ng/mL are indeterminate. XR Chest 1 View [id number] 18:45:45Patient: JOSE RAMOS Date/Time10/30/2018 18:04 CDTReason for ExamChest painReportChest, one viewLOCATION CODE: R 16HISTORY: DyspneaCOMPARISON: NoneFINDINGS:The heart size is normal and the lungs are clear. There is no evidence of pleural effusion, pulmonary edema or patchy lobar consolidation.IMPRESSION:1. No acute cardiopulmonary disease Final Dictated by: MD Franco Roman PDictated DT/TM: 10/30/2018 6:45 pmSigned by: MD Franco Roman PSigned (Electronic Signature): 10/30/2018 6:45 pmUrine Drug [id number] 18:34:55 Test Item Value Reference Range Interpretation Comments Amphetamine Screen Ur (test code = NEG N Amphetamine Screen Ur) Barbiturate Screen Ur (test code = POS N Barbiturate Screen Ur) Benzodiazepines Ur (test code = POS N Benzodiazepines Ur) Cocaine Screen Ur (test code = Cocaine NEG N Screen Ur) U Methadone Scr (test code = U NEG N Methadone Scr) Opiate Screen Ur (test code = Opiate NEG N Screen Ur) U PCP Scrn (test code = U PCP Scrn) NEG N Cannabinoid Screen Ur (test code = POS N Cannabinoid Screen Ur) U TCA (test code = U TCA) NEG N Comprehensive Metabolic [id number] 18:34:39 Test Item Value Reference Range Interpretation Comments Sodium Level (test 138 mmol/L 135-145 code = Sodium Level) Potassium Level 4.2 mmol/L 3.5-5.1 (test code = Potassium Level) Chloride Level 99 mmol/L 98-105 (test code = Chloride Level) CO2 (test code = 28 mmol/L 22-29 CO2) Anion Gap (test 11 mmol/L 7-16 code = Anion Gap) BUN (test code = 13 mg/dL 6-20 BUN) Creatinine Level 1.2 mg/dL 0.7-1.2 (test code = Creatinine Level) BUN/Creat Ratio 11 ratio N (test code = BUN/Creat Ratio) Glucose Level (test 92 mg/dL 75-115 code = Glucose Level) Calcium Level (test 10.3 mg/dL 8.3-10.5 code = Calcium Level) Alk Phos (test code 102 U/L 40-129 = Alk Phos) Bilirubin Total 0.2 mg/dL 0.0-1.0 (test code = Bilirubin Total) Albumin Level (test 5.3 g/dL 3.5-5.2 H code = Albumin Level) Protein Total (test 7.9 g/dL 6.4-8.3 code = Protein Total) ALT (test code = 34 U/L 1-41 ALT) AST (test code = 22 U/L 1-40 AST) Globulin (test code 2.6 g/dL 2.9-3.1 L = Globulin) A/G Ratio (test 2.0 ratio 1.0-2.0 code = A/G Ratio) eGFR AA (test code >60 N eGFR (est imated = eGFR AA) mL/min/1.73 m2 Glomerular Fi ltration Rate) is an est imated value,calculate d from the patient's s kait creatinine usin g the MDRD equation.I t is NOT the patient 's actual GFR. The eGFR provides a more clinicallyusefu l measure of kidn ey disease than se rum creatinine alone.This calculation reji es sex and race into account, if the informationis provided. If th e race is not provided , and the patient isAfrican-Ameri can, multiply by 1.2 12. If sex is not prov ided, and thepatient is female, multipl y by 0.742. Results for patients <18 ye ars ofage have not been validated by th e MDRD study and tarik d be interpretedwith caution.eGFR Re sult Interpretation: eGFR > or = 60 is in t he Normal RangeeGF R < 60 may mean kidney diseaseeGFR < 1 5 may mean kidney failureRange s recommended by the National Kidney Foundation,http ://nkd ep.nih.gov Comprehensive Metabolic [id number] 18:34:39 Test Item Value Reference Range Interpretation Comments Sodium Level (test 138 mmol/L 135-145 code = Sodium Level) Potassium Level 4.2 mmol/L 3.5-5.1 (test code = Potassium Level) Chloride Level 99 mmol/L 98-105 (test code = Chloride Level) CO2 (test code = 28 mmol/L 22-29 CO2) Anion Gap (test 11 mmol/L 7-16 code = Anion Gap) BUN (test code = 13 mg/dL 6-20 BUN) Creatinine Level 1.2 mg/dL 0.7-1.2 (test code = Creatinine Level) BUN/Creat Ratio 11 ratio N (test code = BUN/Creat Ratio) Glucose Level (test 92 mg/dL 75-115 code = Glucose Level) Calcium Level (test 10.3 mg/dL 8.3-10.5 code = Calcium Level) Alk Phos (test code 102 U/L 40-129 = Alk Phos) Bilirubin Total 0.2 mg/dL 0.0-1.0 (test code = Bilirubin Total) Albumin Level (test 5.3 g/dL 3.5-5.2 H code = Albumin Level) Protein Total (test 7.9 g/dL 6.4-8.3 code = Protein Total) ALT (test code = 34 U/L 1-41 ALT) AST (test code = 22 U/L 1-40 AST) Globulin (test code 2.6 g/dL 2.9-3.1 L = Globulin) A/G Ratio (test 2.0 ratio 1.0-2.0 code = A/G Ratio) eGFR AA (test code >60 N eGFR (est imated = eGFR AA) mL/min/1.73 m2 Glomerular Fi ltration Rate) is an est imated value,calculate d from the patient's s kait creatinine usin g the MDRD equation.I t is NOT the patient 's actual GFR. The eGFR provides a more clinicallyusefu l measure of kidn ey disease than se rum creatinine alone.This calculation reji es sex and race into account, if the informationis provided. If th e race is not provided , and the patient isAfrican-Ameri can, multiply by 1.2 12. If sex is not prov ided, and thepatient is female, multipl y by 0.742. Results for patients <18 ye ars ofage have not been validated by th e MDRD study and tarik d be interpretedwith caution.eGFR Re sult Interpretation: eGFR > or = 60 is in t he Normal RangeeGF R < 60 may mean kidney diseaseeGFR < 1 5 may mean kidney failureRange s recommended by the National Kidney Foundation,http ://nkd ep.nih.gov eGFR Non-AA (test >60 N eGFR (lino mated code = eGFR Non-AA) mL/min/1.73 m2 Glomer ular Filtration Rate) is an est imated value,calculate d from the patient's s kait creatinine usin g the MDRD equation.I t is NOT the patient 's actual GFR. The eGFR provides a more clinicallyusefu l measure of kidn ey disease than se rum creatinine alone.This calculation reji es sex and race into account, if the informationis provided. If th e race is not provided , and the patient isAfrican-Ameri can, multiply by 1.2 12. If sex is not prov ided, and thepatient is female, multipl y by 0.742. Results for patients <18 ye ars ofage have not been validated by th e MDRD study and tarik d be interpretedwith caution.eGFR Re sult Interpretation: eGFR > or = 60 is in t he Normal RangeeGF R < 60 may mean kidney diseaseeGFR < 1 5 may mean kidney failureRange s recommended by the National Kidney Foundation,http ://nkd ep.nih.gov Comprehensive Metabolic [id number] 18:34:39 Test Item Value Reference Range Interpretation Comments Sodium Level (test 138 mmol/L 135-145 code = Sodium Level) Potassium Level 4.2 mmol/L 3.5-5.1 (test code = Potassium Level) Chloride Level 99 mmol/L 98-105 (test code = Chloride Level) CO2 (test code = 28 mmol/L 22-29 CO2) Anion Gap (test 11 mmol/L 7-16 code = Anion Gap) BUN (test code = 13 mg/dL 6-20 BUN) Creatinine Level 1.2 mg/dL 0.7-1.2 (test code = Creatinine Level) BUN/Creat Ratio 11 ratio N (test code = BUN/Creat Ratio) Glucose Level (test 92 mg/dL 75-115 code = Glucose Level) Calcium Level (test 10.3 mg/dL 8.3-10.5 code = Calcium Level) Alk Phos (test code 102 U/L 40-129 = Alk Phos) Bilirubin Total 0.2 mg/dL 0.0-1.0 (test code = Bilirubin Total) Albumin Level (test 5.3 g/dL 3.5-5.2 H code = Albumin Level) Protein Total (test 7.9 g/dL 6.4-8.3 code = Protein Total) ALT (test code = 34 U/L 1-41 ALT) AST (test code = 22 U/L 1-40 AST) Globulin (test code 2.6 g/dL 2.9-3.1 L = Globulin) A/G Ratio (test 2.0 ratio 1.0-2.0 code = A/G Ratio) eGFR AA (test code >60 N eGFR (est imated = eGFR AA) mL/min/1.73 m2 Glomerular Fi ltration Rate) is an est imated value,calculate d from the patient's s kait creatinine usin g the MDRD equation.I t is NOT the patient 's actual GFR. The eGFR provides a more clinicallyusefu l measure of kidn ey disease than se rum creatinine alone.This calculation reji es sex and race into account, if the informationis provided. If th e race is not provided , and the patient isAfrican-Ameri can, multiply by 1.2 12. If sex is not prov ided, and thepatient is female, multipl y by 0.742. Results for patients <18 ye ars ofage have not been validated by th e MDRD study and shoul d be interpretedwith caution.eGFR Re sult Interpretation: eGFR > or = 60 is in t he Normal RangeeGF R < 60 may mean kidney diseaseeGFR < 1 5 may mean kidney failureRange s recommended by the National Kidney Foundation,http ://nkd ep.nih.gov eGFR Non-AA (test >60 N eGFR (lino mated code = eGFR Non-AA) mL/min/1.73 m2 Glomer ular Filtration Rate) is an est imated value,calculate d from the patient's s kait creatinine usin g the MDRD equation.I t is NOT the patient 's actual GFR. The eGFR provides a more clinicallyusefu l measure of kidn ey disease than se rum creatinine alone.This calculation reji es sex and race into account, if the informationis provided. If th e race is not provided , and the patient isAfrican-Ameri can, multiply by 1.2 12. If sex is not prov ided, and thepatient is female, multipl y by 0.742. Results for patients <18 ye ars ofage have not been validated by e MDRD study and quianaul d be interpretedwith caution.eGFR Re sult Interpretation: eGFR > or = 60 is in t he Normal RangeeGF R < 60 may mean kidney diseaseeGFR < 1 5 may mean kidney failureRange s recommended by the National Kidney Foundation,http ://nkd ep.nih.gov Automated [id number] 18:34:39 Test Item Value Reference Range Interpretation Comments Neutro Auto (test code = Neutro 47 % 36-70 Auto) Lymph Auto (test code = Lymph 42 % 12-44 Auto) Luce Auto (test code = Luce Auto) 7 % 0-11 Eos, Auto (test code = Eos, Auto) 4 % 0-7 Basophil Auto (test code = 0 % 0-2 Basophil Auto) Neutro Absolute (test code = 4.7 K/cumm 1.6-7.4 Neutro Absolute) Lymph Absolute (test code = Lymph 4.3 K/cumm 0.5-4.6 Absolute) Luce Absolute (test code = Luce 0.7 K/cumm 0.0-1.2 Absolute) Eos Absolute (test code = Eos 0.35 K/cumm N Absolute) Baso Absolute (test code = Baso 0.02 K/cumm 0.00-0.21 Absolute) Complete Blood Count with [id number] 18:34:38 Test Item Value Reference Range Interpretation Comments WBC (test code = WBC) 10.1 K/cumm 4.4-10.5 RBC (test code = RBC) 5.40 K/cumm 4.10-5.70 Hgb (test code = Hgb) 16.5 g/dL 13.4-17.4 MCV (test code = MCV) 90 fL 80-100 Hct (test code = Hct) 48.7 % 38.7-52.0 MCHC (test code = 33.9 % 32.0-37.5 MCHC) RDW CV (test code = 13.3 % 11.5-14.5 RDW CV) MCH (test code = MCH) 30.6 pg 27.0-32.5 Platelets (test code = 238 K/cumm 140-440 Platelets) MPV (test code = MPV) 11 fL N Slide Review (test Auto N Result cr eated by code = Slide Review) GL_SJM_ SLIDE_REV_AUT O Instr WBC (test code = 10.1 N Instr WBC) NM Myocardial SPECT Rest and [id number] 15:00:41Patient: JOSE RAMOS Date/Time05/17/201814:35 CDTReason for ExamAngina pain equivalentReportElectrocardiographic exercise treadmill stress test is negative for stress-induced myocardial ischemiaThe study is performed as a one day rest stressprotocolTechnetium 99m sestamibi 30 mCi were administered intravenously at stress and 10 mCi at restCardiac and gated SPECT images were obtained using standard technique and protocolAll data is reviewed and comparedImage quality is excellentCardiac SPECT images at stress and at rest show homogeneous perfusion with no perfusion abnormalities and a transient ischemic dilatation ratio of 0.82Gated SPECTimages show a normal size left ventricle, no segmental wall motion abnormality and a left ventricular ejection fraction of 0.65Impression:Normal exercise treadmill stress Cardiolite Final Dictated by: MD Rondon Domingo GDictated DT/TM: 05/17/2018 2:59 pmSigned by: MD Rondon Domingo GSigned (Electronic Signature): 05/17/2018 3:00 pm[U] XRAY SPINE LUMBOSACRAL MIN 4 VWS [id number] 2017-12-07 15:20:00 Test Item Value Reference Range Interpretation Comments XR SPINE LUMBOSACRAL EXAM: XR SPINE MIN 4 VWS (test code = LUMBOSACRAL MIN 4 VWS [id number]) DATE: 12/07/2017 4:20 PM CDT INDICATION: Low back pain. COMPARISON: None available TECHNIQUE: AP, lateral, coned lateral, LPO and RPO radiographs of the lumbar spine FINDINGS: 5 nonrib bearing, lumbar-type vertebral bodies are present. Satisfactory alignment of the lumbar spine. Vertebral body and disc heights are maintained. No facet arthropathy or pars defects. A few surgical clips overlie the mid abdomen. IMPRESSION: No abnormality of the lumbar spine identified. 12/08/2017 8:26 PM CDT Daryl Joseph [facility]
--- OUTSIDE RECORDS SUMMARY | 2019-09-14 22:16 | XMS REPORT | Summary of Care ---
:1985 Author Name Benito Hall Address Unavailable Unavailable , Care Team Providers Name Role Phone SHANON Rodriguez, CHRIS Unavailable Unavailable MJ Rodriguez, YAMEL Unavailable Unavailable Benito Hall Unavailable Unavailable KENAN CAPUTO, JOSE Unavailable Unavailable HUBERT CAPUTO, MEL Mckeon Unavailable Unavailable MJ CAPUTO, YAMEL K Unavailable Unavailable PEPITO LUISP, ALEXANDRE JOLLEY Unavailable Unavailable YOLANDA CROWW, ZITA Unavailable Unavailable ARNOLD CAPUTO UT, GRISEL Unavailable Unavailable Unavailable Unavailable Unavailable Functional Status Name Dates Details Functional status health issues are not documented Status: Name Dates Details Cognitive status health issues are not documented Status: Problems Name Dates Details Acute midline low back pain without sciatica (724.2, M54.5) Status: Active Back pain (724.5, M54.9) Status: Active Sleeping difficulties (780.50, G47.9) St atus: Active PTSD (post-traumatic stress disorder) (309.81, F43.10) Status: Active Bipolar depression (296.50, F31.9) Statu s: Active Anxiety (300.00, F41.9) Status: Active 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 Quantity: 15 Refills: 0 CHRIS CLAUDIO M.D. Start : 07-Dec-2017 Active predniSONE 20 MG Oral Tablet TAPER Instructions - TAKE 3 PILLS, BY MOUTH, DAILY X 5 DAYSTHEN 2 PILLS DAILY X 5 DAYSTHEN 1 PILL DAILY X 5 DAYS, UNTIL COMPLETE Quantity: 30 Refills: 0 CHRIS CLAUDIO M.D. Start : 07-Dec-2017 Active Acetaminophen-Codeine #3 300-30 MG Oral Tablet TAKE 1 TABLET EVERY 6 TO 8 HOURS NEEDED FOR PAIN. Quantity: 30 Refills: 0 CHRIS CLAUDIO M.D. Start : 07-Dec-2017 Active Lisinopril 5 MG Oral Tablet 1 tablet at bedtime Refills: 0 Active 30 Tablet Pack amLODIPine Besylate 5 MG Oral Tablet 1 tablet at bedtime Refills: 0 Active Xanax 1 MG Oral Tablet 1 table in the morning and 1 tablet in the afternoon Refills: 0 Active busPIRone HCl - 10 MG Oral Tablet TAKE ONE TABLET BY MOUTH TWICE A DAY Quantity: 60 Refills: 0 MJ M.D., SIDHARTA Start : 26-Sep-2018 Active Latuda 40 MG Oral Tablet TAKE 1 TABLET BY MOUTH EVERY DAY Quantity: 30 Refills: 0 MJ M.D., SIDHARTA Start : 26-Sep-2018 Active traZODone HCl - 50 MG Oral Tablet TAKE 1 TO 2 TABLETS AT BEDTIME Quantity: 60 Refills: 1 MJ M.D., SIDHARTA Start : 06-Dec-2018 Active hydrOXYzine HCl - 50 MG Oral Tablet TAKE 1 TABLET TWICE DAILY NEEDED. Quantity: 60 Refills: 0 MJ M.D., SIDHARTA Start : 06-Dec-2018 Active Prazosin HCl - 1 MG Oral Capsule TAKE 1 CAPSULE BEDTIME Quantity: 30 Refills: 0 MJ M.D., SIDHARTA Start : 04-Aug-2019 Active Allergies and Adverse Reactions Name Dates Details sulfa (Allergy) Status: Active Past Medical History Name Dates Details History of anxiety (V11.8, Z86.59) Statu s: Resolved History of Chronic headache (784.0, R51) Status: Resolved History of depressed bipolar disorder (296.56, F31.70) Status: Resolved History of high cholesterol (V12.29, Z86.39) Status: Resolved History of hypertension (V12.59, Z86.79) Status: Resolved History of post traumatic stress disorder (V11.8, Z86.59) Status: Resolved Procedures Procedure Dates Details History of Kidney surgery Completed History of Hernia Repair Completed Immunization Name Dates Details Immunizations not documented Family History Name Dates Details Family history of schizophrenia (V17.0, Z81.8) Status: Active Family history of PTSD (post-traumatic stress disorder) (309 .81, F43.10) Status: Active Name Dates Details Family history of Anxiety (300.00, F41.9) Status: Active Social History Name Dates Details Tobacco smoking consumption unknown (finding) Vital Signs Date Test Result Details No Known Vitals to report Results Date Description Value Details Results not documented Plan of Care Name Dates Details Planned Observations Planned Goals not documented Planned Encounters Appointment; YAMEL BARKER M.D. On: 04-Sep-2019 13:3 0 Instructions Name Dates Details Instructions not documented Encounters Appointment; CHRIS CLAUDIO M.D. On: 03-Dec-2017 9:1 5 Encounter Diagnosis: Problem not documented Appointment; CHRIS CLAUDIO M.D. On: 07-Dec-2017 15: 30 Encounter Diagnosis: Problem not documented Appointment; VINCENT HOLM M.D. On: 02-Feb-2018 9:00 Encounter Diagnosis: Problem not documented Appointment; GIACOMO GARAY M.D. On: 22-Sep-2018 1 4:00 Encounter Diagnosis: Problem not documented Appointment; YAMEL BARKER M.D. On: 26-Sep-2018 14:0 0 Encounter Diagnosis: Problem not documented Appointment; ZITA GUERRERO LCSW On: 19-Oct-2018 8:30 Encounter Diagnosis: Problem not documented Appointment; YAMEL BARKER M.D. On: 01-Nov-2018 15:3 0 Encounter Diagnosis: Problem not documented Appointment; YAMEL BARKER M.D. On: 08-Nov-2018 15:3 0 Encounter Diagnosis: Problem not documented Appointment; YAMEL BARKER M.D. On: 11-Nov-2018 10:3 0 Encounter Diagnosis: Problem not documented Appointment; YAMEL BARKER M.D. On: 06-Dec-2018 9:30 Encounter Diagnosis: Problem not documented Appointment; YAMEL BARKER M.D. On: 13-Feb-2019 9:30 Encounter Diagnosis: Problem not documented Appointment; ZITA GUERRERO LCSW On: 01-Mar-2019 11:3 0 Encounter Diagnosis: Problem not documented Appointment; YAMEL BARKER M.D. On: 24-Mar-2019 15:00 Encounter Diagnosis: Problem not documented Appointment; YAMEL BARKER M.D. On: 02-Jun-2019 15:0 0 Encounter Diagnosis: Problem not documented Appointment; YAMEL BARKER M.D. On: 04-Aug-2019 13:3 0 Encounter Diagnosis: Problem not documented Appointment; ZITA GUERRERO LCSW On: 16-Aug-2019 13:00 Encounter Diagnosis: Problem not documented
--- NOTE | 2019-09-14 22:58 | EDPHYS ---
[facility] Name: Camden Mitchell Age: 34 yrs Sex: Male : 1985 Arrival Date: 09/14/2019 Time: 22:25 Bed 5 Private MD: ED Physician Jayme Wells HPI: 09/13 22:36 This 34 yrs old Male presents to ER via Unassigned with complaints of Cough. rn 22:36 The patient or guardian reports cough. Onset: The symptoms/episode began/occurred at an rn unknown time. Severity of symptoms: At their worst the symptoms were mild, in the emergency department the symptoms are unchanged. Associated signs and symptoms: Pertinent negatives: fever. The patient has experienced similar episodes in the past, chronically. Reports chronic bronchitis and lung problems from working in [employer] without respirator, reports out of his medication, not from here, has productive sputum but no fever. Reports seen recently and given prednisone and tested negative for coronavirus. Doesn't feel like has infection.. Historical: - Allergies: 22:42 Sulfa (Sulfonamide Antibiotics); lp1 - Home Meds: 22:42 Symbicort inhalation inhalation [Active]; Lisinopril Oral [Active]; amlodipine oral lp1 [Active]; atorvastatin oral oral [Active]; - PMHx: 22:42 Hypertension; Bronchitis; lp1 - PSHx: 22:42 Left kidney removal; Hernia repair; lp1 - Immunization history:: Adult Immunizations up to date. - Social history:: Smoking status: Patient denies any tobacco usage or history of. - Family history:: not pertinent. - Hospitalizations: : No recent hospitalization is reported. ROS: 22:36 Constitutional: Negative for fever, chills, and weight loss, Eyes: Negative for injury, rn pain, redness, and discharge, Neck: Negative for injury, pain, and swelling, Cardiovascular: Negative for chest pain, palpitations, and edema, Respiratory: Negative for pleuritic chest pain, Abdomen/GI: Negative for abdominal pain, nausea, vomiting, diarrhea, and constipation, MS/Extremity: Negative for injury and deformity, Skin: Negative for injury, rash, and discoloration, Neuro: Negative for headache, weakness, numbness, tingling, and seizure. Exam: 22:36 Constitutional: This is a well developed, well nourished patient who is awake, alert, rn and in no acute distress. Ambulatory to room without difficulty. ENT: No stridor Cardiovascular: Tachycardic, regular Respiratory: No increased work of breathing, no retractions or nasal flaring. Skin: Warm, dry Neuro: Awake and alert, GCS 15 Vital Signs: 22:38 BP 182 / 118; Pulse 106; Resp 18; Temp 98.3(O); Pulse Ox 98% on R/A; Weight 90.72 kg lp1 (R); Height 5 ft. 5 in. (165.10 cm); Pain 0/10; 23:20 BP 148 / 78; Pulse 95; Resp 17; Pulse Ox 100% ; rr5 22:38 Body Mass Index 33.28 (90.72 kg, 165.10 cm) lp1 MDM: 22:29 Patient medically screened. rn 22:56 Differential Diagnosis: Bronchitis Pneumonia. Data reviewed: vital signs, nurses notes, rn radiologic studies, plain films, and as a result, I will discharge patient. Test interpretation: by ED physician or midlevel provider: plain radiologic studies, CXR neg for acute infiltrate/pneumonia. Counseling: I had a detailed discussion with the patient and/or guardian regarding: the historical points, exam findings, and any diagnostic results supporting the discharge/admit diagnosis, radiology results, the need for outpatient follow up, to return to the emergency department if symptoms worsen or persist or if there are any questions or concerns that arise at home. Response to treatment: the patient's symptoms have mildly improved after treatment, and as a result, I will discharge patient. Special discussion: I discussed with the patient/guardian in detail that at this point there is no indication for admission to the hospital. It is understood, however, that if the symptoms persist or worsen the patient needs to return immediately for re-evaluation. ED course: Neg CXR, recent neg COVID-19 test, no oxygen requirement, will fill medication and dc home after nebs here since pharmacy is closed. . 09/13 22:35 Order name: AIDEN Chest (1 view) rn Administered Medications: 23:01 Drug: Albuterol 2.5 mg Route: Inhalation; rr5 23:24 Follow up: Response: No adverse reaction rr5 23:02 Drug: AtroVENT Aerosol 0.5 mg Route: Inhalation; rr5 23:24 Follow up: Response: No adverse reaction rr5 Disposition: 09/14/19 22:58 Discharged to Home. Impression: Unspecified chronic bronchitis. - Condition is Stable. - Discharge Instructions: Chronic Bronchitis. - Prescriptions for Symbicort 80- 4.5 mcg/actuation Inhalation HFA aerosol inhaler - inhale 2 puff by INHALATION route 2 times per day; 1 Inhaler. Albuterol Sulfate 90 mcg/actuation - inhale 1-2 puff by INHALATION route every 4-6 hours; 1 Inhaler. Guaifenesin AC 10- 100 mg/5 mL Oral Liquid - take 10 milliliter by ORAL route every 4 hours As needed; 240 milliliter. Anaprox DS 550 mg Oral Tablet - take 1 tablet by ORAL route every 12 hours As needed; 20 tablet. - Medication Reconciliation Form, Thank You Letter, Antibiotic Education, Prescription Opioid Use form. - Follow up: Private Physician; When: As needed; Reason: Recheck today's complaints, Re-evaluation by your physician. - Problem is chronic. - Symptoms have improved. Signatures: Dispatcher [employer] EDMS Jayme Wells MD MD rn Pena, Laura RN RN lp1 Nicholas Evangelista RN RN rr5 Corrections: (The following items were deleted from the chart) 23:26 22:58 09/14/2019 22:58 Discharged to Home. Impression: Unspecified chronic bronchitis. rr5 Condition is Stable. Discharge Instructions: Chronic Bronchitis. Prescriptions for Symbicort 80-4.5 mcg/actuation Inhalation HFA aerosol inhaler - inhale 2 puff by INHALATION route 2 times per day; 1 Inhaler, Albuterol Sulfate 90 mcg/actuation - inhale 1-2 puff by INHALATION route every 4-6 hours; 1 Inhaler, Guaifenesin AC 10-100 mg/5 mL Oral Liquid - take 10 milliliter by ORAL route every 4 hours As needed; 240 milliliter. and Forms are Medication Reconciliation Form, Thank You Letter, Antibiotic Education, Prescription Opioid Use. Follow up: Private Physician; When: As needed; Reason: Recheck today's complaints, Re-evaluation by your physician. Problem is chronic. Symptoms have improved. rn 23:38 23:26 09/14/2019 22:58 Discharged to Home. Impression: Unspecified chronic bronchitis. rr5 Condition is Stable. Discharge Instructions: Chronic Bronchitis. Prescriptions for Symbicort 80-4.5 mcg/actuation Inhalation HFA aerosol inhaler - inhale 2 puff by INHALATION route 2 times per day; 1 Inhaler, Albuterol Sulfate 90 mcg/actuation - inhale 1-2 puff by INHALATION route every 4-6 hours; 1 Inhaler, Guaifenesin AC 10-100 mg/5 mL Oral Liquid - take 10 milliliter by ORAL route every 4 hours As needed; 240 milliliter. and Forms are Medication Reconciliation Form, Thank You Letter, Antibiotic Education, Prescription Opioid Use. Follow up: Private Physician; When: As needed; Reason: Recheck today's complaints, Re-evaluation by your physician. Problem is chronic. Symptoms have improved. rr5
--- NOTE | 2019-09-14 22:58 | ER ---
Nurse's Notes [facility] Name: Camden Mitchell Age: 34 yrs Sex: Male : 1985 Arrival Date: 09/14/2019 Time: 22:25 Bed 5 Private MD: Diagnosis: Unspecified chronic bronchitis Presentation: 09/13 22:38 Chief complaint: Patient states: cough from chronic bronchitis, denies any other lp1 symptoms; states not from here and has ran out of inhaler that controls symptoms; States Negative COVID test. Coronavirus screen: Client denies travel out of the [place] in the last 14 days. At this time, the client does not indicate any symptoms associated with coronavirus-19. Ebola Screen: No symptoms or risks identified at this time. Initial Sepsis Screen: Does the patient meet any 2 criteria? No. Patient's initial sepsis screen is negative. Does the patient have a suspected source of infection? No. Patient's initial sepsis screen is negative. Risk Assessment: Do you want to hurt yourself or someone else? Patient reports no desire to harm self or others. Onset of symptoms was September 14, 2019. 22:38 Method Of Arrival: Ambulatory lp1 22:38 Acuity: JENNIFER 3 lp1 Historical: - Allergies: 22:42 Sulfa (Sulfonamide Antibiotics); lp1 - Home Meds: 22:42 Symbicort inhalation inhalation [Active]; Lisinopril Oral [Active]; amlodipine oral lp1 [Active]; atorvastatin oral oral [Active]; - PMHx: 22:42 Hypertension; Bronchitis; lp1 - PSHx: 22:42 Left kidney removal; Hernia repair; lp1 - Immunization history:: Adult Immunizations up to date. - Social history:: Smoking status: Patient denies any tobacco usage or history of. - Family history:: not pertinent. - Hospitalizations: : No recent hospitalization is reported. Screenin:42 Abuse screen: Denies threats or abuse. Denies injuries from another. Nutritional lp1 screening: No deficits noted. Tuberculosis screening: No symptoms or risk factors identified. Fall Risk None identified. Assessment: 22:40 General: Appears in no apparent distress. comfortable, Behavior is calm, cooperative, rr5 appropriate for age. Pain: Denies pain. Neuro: Level of Consciousness is awake, alert, obeys commands, Oriented to person, place, time, situation. 22:40 Cardiovascular: Capillary refill < 3 seconds Patient's skin is warm and dry. rr5 Respiratory: Reports cough that is Airway is patent Respiratory effort is even, unlabored, Respiratory pattern is regular, symmetrical. GI: No signs and/or symptoms were reported involving the gastrointestinal system. : No signs and/or symptoms were reported regarding the genitourinary system. EENT: No signs and/or symptoms were reported regarding the EENT system. Derm: Skin is intact. Musculoskeletal: No signs and/or symptoms reported regarding the musculoskeletal system. 23:26 Reassessment: Patient appears in no apparent distress at this time. Patient is alert, rr5 oriented x 3, equal unlabored respirations, skin warm/dry/pink. discharge instruction given and explained, patient asked for the prescription of promethazine with codeine, ED provider aware. Explained we cannot prescribed that medication as per ED provider. 3 different kinds of medicine prescription given. Vital Signs: 22:38 BP 182 / 118; Pulse 106; Resp 18; Temp 98.3(O); Pulse Ox 98% on R/A; Weight 90.72 kg lp1 (R); Height 5 ft. 5 in. (165.10 cm); Pain 0/10; 23:20 BP 148 / 78; Pulse 95; Resp 17; Pulse Ox 100% ; rr5 22:38 Body Mass Index 33.28 (90.72 kg, 165.10 cm) lp1 ED Course: 22:25 Patient arrived in ED. ag3 22:29 Jayme Wells MD is Attending Physician. rn 22:32 Nicholas Evangelista, RN is Primary Nurse. rr5 22:40 Patient has correct armband on for positive identification. Bed in low position. Call rr5 light in reach. 22:40 No provider procedures requiring assistance completed. Patient did not have IV access rr5 during this emergency room visit. 22:41 Triage completed. lp1 22:41 Arm band placed on. lp1 22:52 XRAY Chest (1 view) In Process Unspecified. EDMS 23:36 Primary Nurse role handed off by Nicholas Evangelista, RN ar5 Administered Medications: 23:01 Drug: Albuterol 2.5 mg Route: Inhalation; rr5 23:24 Follow up: Response: No adverse reaction rr5 23:02 Drug: AtroVENT Aerosol 0.5 mg Route: Inhalation; rr5 23:24 Follow up: Response: No adverse reaction rr5 Outcome: 22:58 Discharge ordered by . rn 23:24 Discharged to home ambulatory. rr5 23:24 Condition: stable 23:24 Discharge instructions given to patient, Instructed on discharge instructions, follow up and referral plans. medication usage, Demonstrated understanding of instructions, follow-up care, medications, Prescriptions given X 3. 23:26 Patient left the ED. rr5 23:38 Patient left the ED. rr5 Signatures: Dispatcher [employer] EDMS Jayme Wells MD MD rn Pena, Laura, RN RN lp1 Joy Sauceda ag3 Nicholas Evangelista RN RN rr5 Chari Ambriz ar5 Corrections: (The following items were deleted from the chart) 23:26 23:19 Reassessment: Patient appears in no apparent distress at this time. Patient is rr5 alert, oriented x 3, equal unlabored respirations, skin warm/dry/pink. discharge instruction given and explained, patient asked for the prescription of promethazine with codeine, ED provider aware. Explained we cannot prescribed as per ED provider. rr5
[2019-09-14] MEDS ORDERED: IPRATROPIUM BROM 0.5MG/2.5ML ONE (23:08)
[2019-09-14] MEDS ORDERED: ALBUTEROL 2.5 MG/3 ML NEB SOL ONE (23:09)
[2019-09-14 23:32] VITALS: TEMP 98.3
[2019-09-14 23:33] VITALS: BP 148/78; O2SAT 100
--- NOTE | 2019-09-15 07:54 | RAD REPORT ---
EXAM DESCRIPTION: Reina Single View09/14/2019 10:52 pm CLINICAL HISTORY: Cough COMPARISON: 2017 FINDINGS: The lungs appear clear of acute infiltrate. The heart is normal size IMPRESSION: No acute abnormalities displayed
== END 2019-09-14 23:38 | disposition home or self-care (01) ==
LOC: ER 22:12
DX: J42 Unspecified chronic bronchitis (principal); I10 Essential (primary) hypertension; Z88.2 Allergy status to sulfonamides
CPT/HCPCS: 71045; 99284

== ENCOUNTER 2019-11-04 11:51 | Emergency (ER) | payer OTHER ==
--- OUTSIDE RECORDS SUMMARY | 2019-11-04 11:57 | XMS REPORT | Summary of Care ---
:1985 Author Organization [facility] Address [address] [place] [id number]- Encounter HQ Raquelntr_verenice(FIN) [id number] Date(s): 09/27/19 - 09/27/[address] [address]- Discharge Disposition: Home or Self Care Attending Physician: Percy Pinon MD Referring Physician: Percy Pinon MD Vital Signs No data available for this section Problem List Condition Effective Dates Status Health Status Informant Anxiety(Confirmed) Active Depression(Confirmed) Active Hypertension(Confirmed) Resolved Solitary right kidney(Confirmed) Active Right testicular pain(Confirmed) Active Phobia(Confirmed) Active PTSD (post-traumatic stress Active disorder)(Confirmed) Right flank pain(Confirmed) Active Right inguinal hernia(Confirmed) Active Simple obesity(Confirmed) Active Allergies, Adverse Reactions, Alerts Substance Reaction Severity Status sulfa drugs Active Medications Omnipaque 300 100 ml, Route: IV, Dosing Weight 89.091, kg, ONCE, Start date: 09/27/19 15:37:00 CDT, Stop date: 09/27/19 15:37:00 CDT Start Date: 09/27/19 Stop Date: 09/27/19 Status: CompletedOmnipaque 300 50 ml, Route: PO, Dosing Weight 89.091, kg, ONCE, Start date: 09/27/19 15:38:00 CDT, Stop date: 09/27/19 15:38:00 CDT Start Date: 09/27/19 Stop Date: 09/27/19 Status: Completed Results Most recent to oldest [Reference Range]: 1 eGFR 113 mL/min/1.73m2 1 *NA* (09/27/19 3:30 PM) POC Creatinine [0.5-1.4 mg/dL] 0.9 mg/dL (09/27/19 3:30 PM) 1Result Comment: The eGFR is calculated using the CKD-EPI formula. In most young, healthy individualsthe eGFR will be >90 mL/min/1.73m2. The eGFR declines with age. An eGFR of 60-89 may be normal insome populations, particularly the elderly, for whom the CKD-EPI formula has not been extensively validated. Use of the eGFR is not recommended in the following populations: Individuals with unstable creatinine concentrations, including patients and those with serious co-morbid conditions. Patients with extremes in muscle mass or diet. The data above are obtained from the National Kidney Disease Education Program (NKDEP) which additionally recommends that when the eGFR is used in patients with extremes of body mass index for purposesof drug dosing, the eGFR should be multiplied by the estimated BMI. Immunizations No data available for this section Procedures Procedure Date Related Diagnosis Body Site Status Nephrectomy Completed Social History Social History Type Response Alcohol Current, Frequency: 1-2 time s per week. Employment/School Status: Unemployed. Highest education level: High school. Sexual Sexually active: Yes. Substance Abuse Use: Current. Type: Marijua na. Smoking Status Never smoker; Exposure to To bacco Smoke None; Cigarette Smoking Last 365 Days No; Reg Smoking Cessation Counseling No entered on: 08/21/18 Assessment and Plan No data available for this section
--- OUTSIDE RECORDS SUMMARY | 2019-11-04 11:57 | XMS REPORT | Continuity of Care Document ---
:1985 Author Organization [facility] Care Team Providers Name Role Phone [employer] Unavailable Un available Problems Problem Status Onset Classification Date Comments Sourc e Date Reported R10.31 RIGHT Active 09/20/[address] LOWER QUADRANT 20 Heigh ts PAIN RIGHT LOWER Active 09/20/19 Great er QUADRANT PAIN 20 Height s FLANK PAIN Active 04/07/19 [facility] 20 [place], [facility] [place] Bilateral 08/22/19 08/23/2018 Greate r inguinal hernia, 19 Hei ghts without obstruction or gangrene, not specified as recurrent ABDOMINAL PAIN Active 08/21/19 Gr eater 19 [place] BILATERAL Active 08/12/19 Greater INGUINAL HERNIA 19 Heig hts RT TESTICULAR Active 05/05/19 Gre ater PAIN 19 [place] Encounter for 04/01/19 08/19/2018 Gr eater other 19 [place] administrative examinations Orthostatic 02/25/19 09/09/[address] hypotension 19 [place] REACTION Active 02/19/19 MH Greater 19 [place] PRE SYNCOPE Active 02/19/19 Great er 19 [place] WEAKNESS, Active 02/19/19 MH Greater DIZZINESS, 19 [place] MEDICATION SIDE EFF COUGH Active 01/31/20 MH Greater 18 [place] Unspecified 01/21/20 08/04/2018 abdominal pain 18 Terese and,M H [facility] [place] KIDNEY PAIN Active 01/11/20 Great er 18 [place] RIGHT FLANK PAIN Active 12/24/19 Greater 18 [place] R10.9 UNSPECIFIED Active 12/24/19 Greater ABDOMINA 18 [place] Right upper 12/03/19 06/16/2018 quadrant pain 18 [place] Dysuria 11/27/19 06/16/2018 18 [place] FLANK PAIN OR Active 11/27/19 Memori al INJURY 18 [place] Hypertensive Resolved Problem 09/29/2019 Med ical disorder, Group, systemic arterial Pe Amador mendoza (disorder) H [facility] [place] Left kidney Active Problem 09/29/2019 Medi elizabeth absent (finding) Emma up, [place],M H [facility] [place] Pain in testicle Active Problem 09/29/2019 [facility] Right flank pain Active Problem 09/29/2019 [facility] (finding[facility] Right inguinal Active Problem 09/29/2019 [facility] edical hernia (disorder) Gr oup, [place],M H Greater [facility] Simple obesity Active Problem 09/29/2019 [facility] edical (disorder) Group,[facility],M H Greater [facility] 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 Anxiety (finding) Active Problem 09/29/2019 M H Medical Group, Greater [facility] Mixed anxiety and Active Problem 09/29/2019 M H Medical depressive Group, disorder Greater (disorder) [place] Phobia (finding) Active Problem 09/29/2019 Medical Group, Greater [facility] Posttraumatic Active Problem 09/29/2019 [facility] dical stress disorder Grou p, (disorder) Greater [facility] Acquired absence 09/09/2018 MH of kidney BlandAmador H Greater [facility] Essential 09/09/2018 (primary) Amador Figueroa hypertension H Great er [place] Hypokalemia 09/09/[address] [place] Cocaine abuse, 09/09/2018 G reater uncomplicated Height s Cannabis abuse, 09/09/2018 Greater uncomplicated Height s Anxiety disorder, 09/09/2018 M H Greater unspecified [place] Allergy status to 09/09/2018 H sulfonamides Cuco d,M status H Greater [place] UNSPECIFIED Active Great er ABDOMINAL PAIN Heigh ts SYNCOPE AND Active MH Great er COLLAPSE Heights WEAKNESS Active Greater [facility] DIZZINESS AND Active Gre ater GIDDINESS [facility] UNSP ADVERSE Active Grea ter EFFECT OF DRUG OR He ights MEDICAMEN TESTICULAR PAIN, Active Greater UNSPECIFIED [place] BI INGUINAL Active Great er HERNIA, W/O OBST Hei ghts OR GANGRENE Medications Medication Details Route Status Patient Ordering Order Source Instructions Provider Date Omnipaque 300 50 ml, Route: Inactive PO, Dosing 2019 Greater Weight 89.091, [place] kg, ONCE, Start date: 09/27/19 15:38:00 CDT, Stop date: 09/27/19 15:38:00 CDT Omnipaque 300 100 ml, Route: Inactive IV, Dosing 2019 Greater Weight 89.091, [place] kg, ONCE, Start date: 09/27/19 15:37:00 CDT, Stop date: 09/27/19 15:37:00 CDT Omnipaque 300 Notes: (Same Inactive as:Omnipaque 2019 Greater 300). WASTE: Heights F/P - Black; E - Municipal Trash [facility] Morphine Notes: (Same Inactive as:MORPhine 2020 Greater Sulfate) [place] Zofran Notes: (Same Inactive as: Zofran ODT) 2019 [facility] [place] Ketorolac 4 days Inactive MEDICATION 2019 Greater WASTE [place] Product Size: 30 mg Product Wasted: ___ mg Ketorolac 4 days Inactive MEDICATION 2018 Greater WASTE [place] Product Size: 30 mg Product Wasted: ___ mg Acetaminophen 300 1 tab, Route: Inactive MG / Codeine PO, Dosing 2019 Greater Phosphate 30 MG Weight 90.909, H eights Oral Tablet kg, ONCE, PRN [Tylenol with Pain Score 4-6, Codeine #3] Start date: 08/22/18 14:25:00 CDT Tramadol 50 mg, Route: Inactive PO, Drug form: 2019 Greater TAB, ONCE, [place] Dosing Weight 90.909, kg, PRN Pain Score 1-3, Start date: 08/22/18 14:24:00 CDT 72 HR Scopolamine Notes: Change Inactive 0.0139 MG/HR patch every [address] Transdermal Patch hours (Same [place] as: Transderm-Scop) Promethazine 6.25 mg, Route: Inactive IVPB, ONCE, 2019 Greater Dosing Weight [place] 90.909, kg, PRN Nausea & Vomiting, Start date: 08/22/18 13:55:00 CDT Ondansetron 4 mg, Route: Inactive IVP, ONCE, 2018 Greater Dosing Weight [place] 90.909, kg, PRN Nausea & Vomiting, Start date: 08/22/18 13:55:00 CDT Naloxone Notes: Same as Inactive Narcan 2019 [place] Meperidine Notes: (Same Inactive as: Demerol) 2019 Greater "Use Precaution [place] in Elderly, Seizure disorders, and Renal impairment&quot ; Diphenhydramine Notes: (Same Inactive as: Benadryl) 2019 Greater [place] Albuterol 0.83 Notes: SEE RT Inactive MG/ML Inhalant DOCUMENTATION 2019 Gre ater Solution (Same as: Heights Proventil) Flumazenil Notes: (Same Inactive as: Romazicon) 2019 [facility] [place] Fentanyl Notes: (Same Inactive as: Sublimaze) 2019 Greater Preservative [place] free. Hydromorphone Notes: Same as Inactive Dilaudid 2019 [place] Oxycodone Notes: (Same Inactive as: Roxicodone) 2019 [place] Acetaminophen Notes: Infuse Inactive over 15 minutes 2019 Greater Do not exceed Heights 4gm/day of acetaminophen MEDICATION WASTE Product Size: 1000 mg Product Wasted: ___ mg Hydralazine Notes: (Same Inactive as: Apresoline) 2019 Greater Push over 5 Heights minutes ondansetron Route: IV, Drug Inactive (ANES) form: INJ, 2018 Greater ONCE, Stop Heights date: 08/22/18 12:54:00 CDT glycopyrrolate Route: IV, Drug Inactive (ANES) form: INJ, 2018 Greater ONCE, Stop Heights date: 08/22/18 12:54:00 CDT neostigmine Route: IV, Drug Inactive (ANES) form: INJ, 2018 Greater ONCE, Stop Heights date: 08/22/18 12:54:00 CDT tramadol 50 mg, PO, Q4H, Active hydrochloride 50 PRN Pain Score 2019 Greater MG Oral Tablet 1-3, X 3 day, # H eights 12 tab, 0 Refill(s) Docusate Sodium 100 mg = 1 cap, Active 100 MG Oral PO, BID, PRN 2019 Greater Capsule [Colace] Constipation, # Heights 20 cap, 0 Refill(s), [facility] [id number] Acetaminophen 300 1 tab, PO, Active MH MG / Codeine Daily, PRN as 2019 Great er Phosphate 30 MG needed for Heigh ts Oral Tablet pain, X 3 day, # 10 tab, 0 Refill(s) Docusate Sodium Notes: (Same Inactive 100 MG Oral as: Colace) (Do [address] Capsule [Colace] Not Crush) Heig hts tramadol Notes: Not to Inactive hydrochloride 50 exceed 2019 Greater MG Oral Tablet 400mg/day. Height s (Same As: Ultram) Morphine Notes: (Same Inactive as:MORPhine 2019 Greater Sulfate) [facility] acetaminophen-cod Notes: Do not Inactive eine #3 exceed 4gm/day 2019 Greater of [facility] acetaminophen. (Same as: Tylenol with Codeine # 3) ketAMINE (ANES) Route: IV, Drug Inactive form: INJ, 2018 Greater ONCE, Stop [place] date: 08/22/18 11:40:00 CDT ceFAZolin (ANES) Route: IV, Drug Inactive form: INJ, 2018 Greater ONCE, Stop [place] date: 08/22/18 11:40:00 CDT dexamethasone Route: IV, Drug Inactive 08/22/ H (ANES) form: INJ, 2018 Greater ONCE, Stop Heights date: 08/22/18 11:40:00 CDT fentaNYL (ANES) Route: IV, Drug Inactive form: INJ, 2018 Greater ONCE, Stop Heights date: 08/22/18 11:40:00 CDT propofol (ANES) Route: IV, Drug Inactive form: INJ, 2018 Greater ONCE, Stop Heights date: 08/22/18 11:35:00 CDT rocuronium (ANES) Route: IV, Drug Inactive 08/22 form: INJ, 2018 Greater ONCE, Stop Heights date: 08/22/18 11:35:00 CDT lidocaine (ANES) Route: IV, Drug Inactive form: INJ, 2018 Greater ONCE, Stop Heights date: 08/22/18 11:35:00 CDT midazolam (ANES) Route: IV, Drug Inactive form: SOLN, 2019 Greater ONCE, Stop Heights date: 08/22/18 11:35:00 CDT Lactated Ringers Route: IV, Inactive Injection IV Total Volume: 2019 Great er (ANES) 1000 mL 1,000, Start Heig hts date: 08/22/18 10:21:00 CDT, Stop date: 08/22/18 11:21:00 CDT Shiva Notes: (Same Inactive as: Zofran ODT) 2019 Greater [place] Acetaminophen 325 Notes: (Same Inactive MG / Hydrocodone as: [place] 2019 Great er Bitartrate 5 MG 325/5) Do not H eights Oral Tablet exceed 4gm/day of acetaminophen. Sodium Chloride 1,000 mL, 1000 Inactive 0.9% (Bolus) IV ml/hr, Infuse 2019 Gr eater Over: 1 hr, Heights Route: IV, 1,000, Drug form: INJ, ONCE, Priority: STAT, Dosing Weight 90.909 kg, Start date: 08/20/18 22:48:00 CDT, Stop date: 08/20/18 22:48:00 CDT, 0 Zoloft 50 mg, PO, Active Daily, 0 2019 Greater Refill(s) [facility] Lisinopril 5 mg, PO, Active Daily, 0 2019 Greater Refill(s) [facility] acetaminophen-cod 1 tab, PO, No Longer 08/19/ H eine #3 Daily, PRN as Active 2019 Greater needed for Heights pain, 0 Refill(s) Naproxen PO, Daily, PRN Active as needed for 2019 Greater pain, 0 Heights Refill(s) Xanax 0.5 mg, PO, Active BID, 0 2019 Greater Refill(s) [place] Amlodipine 5 mg, PO, Active Daily, 0 2019 Greater Refill(s) [facility] naproxen 500 mg 500 mg = 1 tab, Active oral tablet PO, BID, X 14 2019 Medica day, # 28 tab, Group 0 Refill(s), Pharmacy: [facility] [id number] Famotidine 20 MG Notes: (Same Inactive 02/21/ M H Oral Tablet as: Pepcid) 2019 Greater [Pepcid] [place] Aspirin Notes: Do not Inactive crush or chew. 2019 Greater (Same As: [facility] Ecotrin) Trazodone Notes: (Same Inactive Hydrochloride 50 As: Desyrel) 2019 Gr eater MG Oral Tablet Heights Saline Flush 0.9% Notes: (Same Inactive as: BD 2019 Greater Posiflush) [facility] Amlodipine 20 mg, PO, Inactive Daily, 0 2018 Greater Refill(s) [place] Sodium Chloride 1,000 mL, Rate: Inactive 0.9% IV 1,000 mL 125 ml/hr, [address] Infuse over: 8 Heights hr, Route: IV, Dosing Weight 106.818 kg, Total Volume: 1,000, Start date: 02/20/18 1:55:00 OXYGRAPH OPERATOR, Duration: 30 day, Stop date: 03/22/18 1:54:00 OXYGRAPH OPERATOR, 2.28, m2 Saline Flush 0.9% Notes: (Same Inactive as: BD 2018 Posiflush) [facility] Antivert Notes: (Same Inactive as: Antivert) 2019 Greater [place] Potassium 10 mEq, Route: Inactive Chloride IVPB, ONCE, 2019 Greater Dosing Weight [place] 106.818, kg, Start date: 02/20/18 0:30:00 OXYGRAPH OPERATOR, Stop date: 02/20/18 0:30:00 OXYGRAPH OPERATOR Ondansetron Notes: (Same Inactive as: Zofran) 2019 Greater MEDICATION Heights WASTE Product Size: 4 mg Product Wasted: ___ mg Sodium Chloride 1,000 mL, Inactive 0.9% (Bolus) IV Infuse Over: 1 2019 G reater hr, Route: IV, Heights ONCE, Priority: STAT, Dosing Weight 106.818 kg, Start date: 02/19/18 22:56:00 OXYGRAPH OPERATOR, Stop date: 02/19/18 22:56:00 OXYGRAPH OPERATOR Motrin Notes: (Same No Longer as: Motrin) "Do Active 2017 Greater Not Crush" Heights Take with food. Acetaminophen 300 1 - 2 tab, PO, No Longer 01/10 MG / Codeine Q6H, PRN Pain, Active [address] Phosphate 30 MG X 4 day, # 12 He ights Oral Tablet tab, 0 [Tylenol with Refill(s) Codeine #3] Zofran Notes: (Same Inactive as: Zofran) 2017 Greater MEDICATION Heights WASTE Product Size: 4 mg Product Wasted: ___ mg Morphine Notes: (Same Inactive as:MORPhine 2018 Greater Sulfate) [place] promethazine 6.25 6.25 mg = 5 ml, Active mg/5 mL oral PO, Q6H, PRN [address] [place] syrup Nausea & Vomiting, # 120 ml, 0 Refill(s) Tylenol with 10 ml, PO, Q6H, No Longer 11/27/ H Codeine 120 mg-12 PRN Pain, X 7 Active 2018 [place] mg/5 mL oral day, # 240 mL, liquid 0 Refill(s) Zofran Notes: (Same Inactive as: Zofran) 2017 [place] MEDICATION WASTE Product Size: 4 mg Product Wasted: ___ mg Ketorolac 4 days Inactive MEDICATION 2017 [place] WASTE Product Size: 30 mg Product Wasted: ___ mg Acetaminophen 325 Notes: (Same Inactive MG / Hydrocodone as: [place] 2018 Terese and Bitartrate 5 MG 325/5) Do not Oral Tablet exceed 4gm/day [[place] 5/325] of acetaminophen. Phenergan 25 mg 25 mg = 1 tab, Inactive oral tablet PO, Q6H, PRN 2018 [place] Nausea, # 15 tab, 0 Refill(s) Acetaminophen 300 1 tab, PO, Q6H, Inactive 11/27 MG / Codeine PRN Pain, X 3 2018 Terese and Phosphate 30 MG day, # 12 tab, Oral Tablet 0 Refill(s) [Tylenol with Codeine #3] Ketorolac 4 days Inactive MEDICATION 2017 [place] WASTE Product Size: 30 mg Product Wasted: ___ mg normal saline 1,000 mL, Rate: Inactive H 0.9% IV 1,000 mL 1,000 ml/hr, 2017 [facility] Infuse over: 1 hr, Route: IV, Dosing Weight 84.9 kg, Total Volume: 1,000, Priority: Within 24 hours, Start date: 11/26/17 20:38:00 CDT, Duration: 1 doses or times, Stop date: 11/26/17 21:37:00 CDT, 2.01, m2 Tylenol with 15 ml, PO, Q6H, No Longer 09/23/ M H Codeine 120 mg-12 PRN Pain, X 3 Active 2018 [place] mg/5 mL oral day, # 120 mL, liquid 0 Refill(s) Ondansetron 0.8 4 mg = 5 mL, No Longer 09/23/ M H MG/ML Oral PO, TID, PRN Active 2017 [place] Solution [Zofran] Nausea & Vomiting, # 50 mL, 0 Refill(s) Acetaminophen 325 Notes: (Same Inactive MG / Hydrocodone as: [place] 2018 Terese and Bitartrate 5 MG 325/5) Do not Oral Tablet exceed 4gm/day of acetaminophen. Saline Flush 0.9% Notes: (Same No Longer as: BD Active 2017 [place] Posiflush) Sodium Chloride 1,000 mL, 1000 Inactive 0.9% (Bolus) IV ml/hr, Infuse 2017 José Miguel mendoza Over: 1 hr, Route: IV, 1,000, Drug form: INJ, ONCE, Priority: STAT, Dosing Weight 81.818 kg, Start date: 11/06/17 17:50:00 CDT, Stop date: 11/06/17 17:50:00 CDT Allergies, Adverse Reactions, Alerts Substance Category Reaction Severity Reaction Status Date Comments S ource type Reported sulfa drugs Assertion Drug Active allergy [facility] Immunizations No Data Provided for This Section Results Order Name Results Value Reference Date Interpretation Comments Shannen rce Range CHEM PANEL POC 0.9 0.5 - 1.4 09/26 Creatinine /2019 [facility] CHEM PANEL eGFR 113 09/26 Result Comment: The Greater eGFR is Heights calculated using the CKD-EPI formula. In most young, healthy individuals the eGFR will be >90 mL/min/1.73m2 . The eGFR declines with age. An eGFR of 60-89 may be normal in some populations, particularly the elderly, for whom the CKD-EPI formula has not been extensively validated. Use of the eGFR is not recommended in the following populations:< br/>
Yesenia viduals with unstable creatinine concentration s, including patients and those with serious co-morbid conditions.<b r/>
Patie nts with extremes in muscle mass or diet.

The data above are obtained from the National Kidney Disease Education Program (NKDEP) which additionally recommends that when the eGFR is used in patients with extremes of body mass index for purposes of drug dosing, the eGFR should be multiplied by the estimated BMI. CHEM PANEL Glucose Lvl 94 70 - 99 04/07 MH Greater [facility] CHEM PANEL BUN 12 7 - 22 04/07 MH Greater [facility] CHEM PANEL Creatinine 1.07 0.50 - 02 MH Lvl 1.40 /2019 Greater [facility] CHEM PANEL Sodium Lvl 143 135 - 145 04/07 MH [facility] CHEM PANEL Potassium 4.0 3.5 - 5.1 04/07 MH Lvl /2019 Greater [facility] CHEM PANEL Chloride Lvl 111 95 - 109 04/07 MH Greater [facility] CHEM PANEL CO2 27 24 - 32 04/07 MH /2019 Greater [facility] CHEM PANEL Calcium Lvl 8.6 8.5 - 10.5 04/07 MH /2019 Greater [facility] CHEM PANEL Total 6.3 6.4 - 8.4 04/07 MH Greater [facility] CHEM PANEL Albumin Lvl 3.4 3.5 - 5.0 04/07 MH /2019 [facility] CHEM PANEL ALT 31 0 - 65 04/07 MH /2019 Greater [facility] CHEM PANEL AST 18 0 - 37 04/07 MH /2019 Greater [facility] CHEM PANEL Alk Phos 70 39 - 136 04/07 MH /2019 Greater [facility] CHEM PANEL Bili Total 0.4 0.2 - 1.3 04/07 MH /2019 Greater [facility] CHEM PANEL AGAP 9.0 10.0 - 02/ MH 20.0 /2020 Greater [facility] CHEM PANEL B/C Ratio 11 6 - 25 04/07 MH /2019 Greater [facility] CHEM PANEL Globulin 2.9 2.7 - 4.2 04/07 MH /2019 Greater [facility] CHEM PANEL A/G Ratio 1.2 0.7 - 1.6 04/07 MH /2019 Greater [facility] CHEM PANEL eGFR 91 02/ Result Comment: The Greater eGFR is [place] calculated using the CKD-EPI formula. In most young, healthy individuals the eGFR will be >90 mL/min/1.73m2 . The eGFR declines with age. An eGFR of 60-89 may be normal in some populations, particularly the elderly, for whom the CKD-EPI formula has not been extensively validated. Use of the eGFR is not recommended in the following populations:< br/>
Yesenia viduals with unstable creatinine concentration s, including patients and those with serious co-morbid conditions.<b r/>
Patie nts with extremes in muscle mass or diet.

The data above are obtained from the National Kidney Disease Education Program (NKDEP) which additionally recommends that when the eGFR is used in patients with extremes of body mass index for purposes of drug dosing, the eGFR should be multiplied by the estimated BMI. CHEM PANEL Lipase Lvl 298 73 - 393 04/07 MH /2019 [place] HEMATOLOGY WBC 9.5 3.7 - 10.4 04/07 MH /2019 [place] HEMATOLOGY RBC 5.61 4.70 - 04/07 MH 6.10 /2019 [place] HEMATOLOGY Hgb 17.5 14.0 - 04/07 MH 18.0 /2019 [place] HEMATOLOGY Hct 51.8 42.0 - 04/07 MH 54.0 /2020 [place] HEMATOLOGY MCV 92.4 80.0 - 04/07 MH 94.0 /2020 [place] HEMATOLOGY MCH 31.1 27.0 - 04/07 MH 31.0 /2019 [place] HEMATOLOGY MCHC 33.7 32.0 - 04/07 MH 36.0 /2020 [place] HEMATOLOGY RDW 13.8 11.5 - 04/07 MH 14.5 /2020 [place] HEMATOLOGY Platelet 232 133 - 450 04/07 MH /2019 [place] HEMATOLOGY MPV 8.9 7.4 - 10.4 04/07 MH /2019 [place] HEMATOLOGY Segs 61.1 45.0 - 04/07 MH 75.0 /2020 [place] HEMATOLOGY Lymphocytes 30.2 20.0 - 04/07 MH 40.0 /2020 [place] HEMATOLOGY Monocytes 6.0 2.0 - 12.0 04/07 MH /2019 [place] HEMATOLOGY Eosinophils 2.1 0.0 - 4.0 04/07 MH /2019 [place] HEMATOLOGY Basophils 0.6 0.0 - 1.0 04/07 MH /2019 [place] HEMATOLOGY Neutrophils 5.8 1.5 - 8.1 02/21 MH # /2019 Greater [facility] HEMATOLOGY Lymphocytes 2.9 1.0 - 5.5 04/07 MH # /2019 Greater [facility] HEMATOLOGY Monocytes # 0.6 0.0 - 0.8 04/07 Greater [facility] HEMATOLOGY Eosinophils 0.2 0.0 - 0.5 04/07 MH # /2019 Greater [facility] HEMATOLOGY Basophils # 0.1 0.0 - 0.2 04/07 [facility] CHEM PANEL eGFR 93 08/21 Result Comment: The Greater eGFR is [place] calculated using the CKD-EPI formula. In most young, healthy individuals the eGFR will be >90 mL/min/1.73m2 . The eGFR declines with age. An eGFR of 60-89 may be normal in some populations, particularly the elderly, for whom the CKD-EPI formula has not been extensively validated. Use of the eGFR is not recommended in the following populations:< br/>
Yesenia viduals with unstable creatinine concentration s, including patients and those with serious co-morbid conditions.<b r/>
Patie nts with extremes in muscle mass or diet.

The data above are obtained from the National Kidney Disease Education Program (NKDEP) which additionally recommends that when the eGFR is used in patients with extremes of body mass index for purposes of drug dosing, the eGFR should be multiplied by the estimated BMI. CHEM PANEL Glucose Lvl 88 70 - 99 08/21 [facility] CHEM PANEL Calcium Lvl 9.6 8.5 - 10.5 08/21 [facility] CHEM PANEL CO2 26 24 - 32 08/21 [facility] CHEM PANEL BUN 16 7 - 22 08/21 [facility] CHEM PANEL Creatinine 1.06 0.50 - 08/21 Lvl 1.40 /2018 [facility] CHEM PANEL Chloride Lvl 104 95 - 109 08/21 [facility] CHEM PANEL Potassium 4.0 3.5 - 5.1 08/21 Lvl [facility] CHEM PANEL Sodium Lvl 138 135 - 145 08/21 [facility] CHEM PANEL Albumin Lvl 4.5 3.5 - 5.0 08/21 [facility] CHEM PANEL Total 8.2 6.4 - 8.4 08/21 [place] CHEM PANEL ALT 39 0 - 65 08/21 [facility] [place] CHEM PANEL AST 20 0 - 37 08/21 [facility] [place] CHEM PANEL Bili Total 0.3 0.2 - 1.3 08/21 [facility] [place] CHEM PANEL Alk Phos 89 39 - 136 08/21 [facility] [place] CHEM PANEL Globulin 3.7 2.7 - 4.2 08/21 [facility] [place] CHEM PANEL B/C Ratio 15 6 - 25 08/21 [facility] [place] CHEM PANEL AGAP 12.0 10.0 - 08/21 MH 20.0 /2018 [facility] [place] CHEM PANEL A/G Ratio 1.2 0.7 - 1.6 08/21 [facility] [place] HEMATOLOGY RDW 13.4 11.5 - 08/21 MH 14.5 /2018 [facility] [place] HEMATOLOGY MCHC 33.8 32.0 - 08/21 MH 36.0 /2018 [facility] [place] HEMATOLOGY MCH 30.6 27.0 - 08/21 MH 31.0 /2018 [facility] [place] HEMATOLOGY Hct 48.5 42.0 - 08/21 MH 54.0 /2018 [facility] [place] HEMATOLOGY Hgb 16.4 14.0 - 08/21 MH 18.0 /2018 [facility] [place] HEMATOLOGY MCV 90.7 80.0 - 08/21 MH 94.0 /2018 [facility] [place] HEMATOLOGY Platelet 200 133 - 450 08/21 [facility] [place] HEMATOLOGY MPV 9.5 7.4 - 10.4 08/21 /2018 [facility] [place] HEMATOLOGY RBC 5.35 4.70 - 08/21 MH 6.10 /2019 [facility] [place] HEMATOLOGY WBC 9.5 3.7 - 10.4 08/21 /2018 [facility] [place] HEMATOLOGY Basophils # 0.1 0.0 - 0.2 08/21 [facility] [place] HEMATOLOGY Eosinophils 0.4 0.0 - 0.5 08/21 MH # /2019 [place] HEMATOLOGY Monocytes # 0.6 0.0 - 0.8 08/21 /2018 [facility] [place] HEMATOLOGY Lymphocytes 33.4 20.0 - 08/21 MH 40.0 /2019 [facility] [place] HEMATOLOGY Segs 55.2 45.0 - 08/21 MH 75.0 /2019 [place] HEMATOLOGY Monocytes 6.3 2.0 - 12.0 08/21 [facility] [place] HEMATOLOGY Basophils 0.8 0.0 - 1.0 08/21 [facility] [place] HEMATOLOGY Eosinophils 4.3 0.0 - 4.0 08/21 /2018 [facility] [place] HEMATOLOGY Lymphocytes 3.2 1.0 - 5.5 08/21 MH # /2018 [place] HEMATOLOGY Neutrophils 5.3 1.5 - 8.1 08/21 # /2018 [facility] [place] URINE AND UA Ketones Negative 08/21 STOOL /2018 [facility] [place] URINE AND UA <=1.0 0.1 - 1.0 08/21 STOOL Urobilinogen mg/dL /2018 [facility] [place] URINE AND UA Sq Epi None Seen 08/21 STOOL [place] URINE AND UA Color LYYELLOW 08/21 STOOL [place] URINE AND UA pH 6.0 5.0 - 8.0 08/21 STOOL /2018 [facility] [place] URINE AND UA Spec Grav 1.009 <=1.030 08/21 STOOL [place] URINE AND UA Protein Negative Negative 08/21 STOOL mg/dL mg/dL [facility] [place] URINE AND UA Turbidity Clear Clear 08/21 STOOL (08/20/18 11:17 PM) [facility] [facility] URINE AND UA Nitrite Negative Negative 08/21 STOOL (08/20/18 11:17 PM) [facility] URINE AND UA Glucose Negative Negative 08/21 STOOL mg/dL mg/dL /2018 [facility] URINE AND UA Blood Negative Negative 08/21 STOOL (08/20/18 11:17 PM) [facility] [place] URINE AND UA Bili Negative Negative 08/21 STOOL *NA* /2018 [facility] (08/20/18 11:17 PM) [facility] URINE AND UA Leuk Est Negative Negative 08/21 STOOL (08/20/18 11:17 PM) [facility] ELECTROLYTE AGAP 13.4 10.0 - 07/05 S 20.0 /2018 [facility] ELECTROLYTE eGFR 102 / Result S /2018 Comment: The [facility] eGFR is [place] calculated using the CKD-EPI formula. In most young, healthy individuals the eGFR will be >90 mL/min/1.73m2 . The eGFR declines with age. An eGFR of 60-89 may be normal in some populations, particularly the elderly, for whom the CKD-EPI formula has not been extensively validated. Use of the eGFR is not recommended in the following populations:< br/>
Yesenia viduals with unstable creatinine concentration s, including patients and those with serious co-morbid conditions.<b r/>
Patie nts with extremes in muscle mass or diet.

The data above are obtained from the National Kidney Disease Education Program (NKDEP) which additionally recommends that when the eGFR is used in patients with extremes of body mass index for purposes of drug dosing, the eGFR should be multiplied by the estimated BMI. ELECTROLYTE Calcium Lvl 8.8 8.5 - 10.5 07/05 MH S /2018 [facility] ELECTROLYTE CO2 26 24 - 32 07/05 MH S /2018 [facility] ELECTROLYTE Sodium Lvl 142 135 - 145 07/05 MH S /2018 [facility] ELECTROLYTE Chloride Lvl 107 95 - 109 07/05 MH S /2018 [facility] ELECTROLYTE Potassium 4.4 3.5 - 5.1 /05 MH S Lvl /2019 [facility] ELECTROLYTE Creatinine 0.98 0.50 - 07/05 MH S Lvl 1.40 /2018 [facility] ELECTROLYTE BUN 13 7 - 22 /05 MH S /2018 [facility] ELECTROLYTE Glucose Lvl 94 70 - 99 /05 MH S /2018 [facility] HEMATOLOGY Eosinophils 0.4 0.0 - 0.5 07/05 MH # /2019 [facility] HEMATOLOGY Monocytes # 0.4 0.0 - 0.8 /05 MH /2018 [facility] HEMATOLOGY Lymphocytes 2.4 1.0 - 5.5 /05 MH # /2019 [facility] HEMATOLOGY Basophils 0.6 0.0 - 1.0 /05 MH /2018 [facility] HEMATOLOGY Neutrophils 3.7 1.5 - 8.1 /05 MH # /2019 [facility] HEMATOLOGY Segs 53.5 45.0 - 07/05 MH 75.0 /2019 [facility] HEMATOLOGY Lymphocytes 34.7 20.0 - 07/05 MH 40.0 /2019 [facility] HEMATOLOGY Monocytes 5.6 2.0 - 12.0 07/05 MH /2019 [facility] HEMATOLOGY Eosinophils 5.6 0.0 - 4.0 /05 MH /2018 [facility] HEMATOLOGY MPV 10.0 7.4 - 10.4 /05 MH /2019 [facility] HEMATOLOGY Platelet 178 133 - 450 07/05 MH /2018 [facility] HEMATOLOGY WBC 7.0 3.7 - 10.4 /05 MH /2019 [facility] HEMATOLOGY RBC 4.77 4.70 - 07/05 MH 6.10 /2019 [facility] HEMATOLOGY RDW 13.5 11.5 - 08/19 MH 14.5 /2018 [facility] HEMATOLOGY Hct 44.1 42.0 - 08/19 MH 54.0 /2018 [facility] HEMATOLOGY MCH 30.8 27.0 - 08/19 MH 31.0 /2018 [facility] HEMATOLOGY MCV 92.4 80.0 - 08/19 MH 94.0 /2018 [facility] HEMATOLOGY Hgb 14.7 14.0 - 08/19 MH 18.0 /2018 [facility] HEMATOLOGY MCHC 33.4 32.0 - 08/19 MH 36.0 /2018 [facility] ANEMIA Vitamin B12 544 254 - 1320 02/20 STUDY Lvl [facility] CARDIAC Troponin-I <0.02 0.00 - 02/20 ENZYMES 0.40 [facility] CHEM PANEL Ammonia 26.0 <=45.0 02/20 uMol/L [facility] DRUG SCREEN U Amph Scr Negative Negative 02/20 MH *NA* [facility] (02/20/18 12:53 AM) [facility] DRUG SCREEN U Benzodiaz Positive Negative 02/20 MH Scr *ABN* [facility] (02/20/18 12:53 AM) [facility] DRUG SCREEN U Sara Scr Negative Negative 02/20 MH *NA* [facility] (02/20/18 12:53 AM) [facility] DRUG SCREEN U Cocaine Positive Negative 02/20 MH Scr *ABN* [facility] (02/20/18 12:53 AM) [facility] DRUG SCREEN U Cannab Scr Positive Negative 02/20 MH *ABN* [facility] (02/20/18 12:53 AM) [facility] DRUG SCREEN UDS Note See Note 02/20 MH (02/20/18 12:53 AM) [facility] Negative Negative 02/20 Phencyclidin *NA [facility] e Scr (02/20/18 12:53 AM) [facility] DRUG SCREEN U Opiate Scr Negative Negative 02/20 MH *NA* [facility] (02/20/18 12:53 AM) [facility] CARDIAC Troponin-I <0.02 0.00 - 02/20 ENZYMES 0.40 [facility] CHEM PANEL eGFR 82 02/20 Result Comment: The [facility] eGFR is [place] calculated using the CKD-EPI formula. In most young, healthy individuals the eGFR will be >90 mL/min/1.73m2 . The eGFR declines with age. An eGFR of 60-89 may be normal in some populations, particularly the elderly, for whom the CKD-EPI formula has not been extensively validated. Use of the eGFR is not recommended in the following populations:< br/>
Yesenia viduals with unstable creatinine concentration s, including patients and those with serious co-morbid conditions.<b r/>
Patie nts with extremes in muscle mass or diet.

The data above are obtained from the National Kidney Disease Education Program (NKDEP) which additionally recommends that when the eGFR is used in patients with extremes of body mass index for purposes of drug dosing, the eGFR should be multiplied by the estimated BMI. CHEM PANEL Albumin Lvl 4.0 3.5 - 5.0 02/20 [facility] CHEM PANEL ALT 51 0 - 65 02/20 [facility] CHEM PANEL Bili Total 0.3 0.2 - 1.3 02/20 [facility] CHEM PANEL Alk Phos 76 39 - 136 02/20 [facility] CHEM PANEL AST 27 0 - 37 02/20 [facility] CHEM PANEL Sodium Lvl 141 135 - 145 02/20 [facility] CHEM PANEL Total 6.9 6.4 - 8.4 02/20 [facility] CHEM PANEL Calcium Lvl 8.1 8.5 - 10.5 02/20 [facility] CHEM PANEL CO2 23 24 - 32 02/20 [facility] CHEM PANEL Chloride Lvl 109 95 - 109 02/20 [facility] CHEM PANEL Potassium 3.2 3.5 - 5.1 02/20 Lvl [facility] CHEM PANEL Creatinine 1.18 0.50 - 02/20 Lvl 1.40 /2018 [facility] CHEM PANEL BUN 9 7 - 22 02/20 [facility] CHEM PANEL Glucose Lvl 128 70 - 99 02/20 [facility] CHEM PANEL A/G Ratio 1.4 0.7 - 1.6 02/20 [facility] CHEM PANEL B/C Ratio 8 6 - 25 02/20 [facility] CHEM PANEL Globulin 2.9 2.7 - 4.2 02/20 [facility] CHEM PANEL AGAP 12.2 10.0 - 02/20 MH 20.0 /2019 [facility] CHEM PANEL Magnesium 2.1 1.8 - 2.4 / Lvl /2019 [facility] HEMATOLOGY Eosinophils 0.2 0.0 - 0.5 02/20 MH # /2018 [facility] HEMATOLOGY Monocytes # 0.5 0.0 - 0.8 02/20 /2018 [facility] HEMATOLOGY Basophils # 0.1 0.0 - 0.2 02/20 /2018 [facility] HEMATOLOGY Lymphocytes 4.7 1.0 - 5.5 02/20 MH # /2018 [facility] HEMATOLOGY Segs 46.0 45.0 - 02/20 75.0 /2019 [facility] HEMATOLOGY Lymphocytes 46.5 20.0 - 02/20 40.0 /2018 [facility] HEMATOLOGY Eosinophils 1.6 0.0 - 4.0 02/20 /2018 [facility] HEMATOLOGY Monocytes 5.2 2.0 - 12.0 02/20 /2018 [facility] HEMATOLOGY Neutrophils 4.7 1.5 - 8.1 02/20 # /2018 [facility] HEMATOLOGY Basophils 0.7 0.0 - 1.0 02/20 /2018 [facility] HEMATOLOGY MPV 9.1 7.4 - 10.4 02/20 /2018 [facility] HEMATOLOGY Platelet 238 133 - 450 02/20 /2018 [facility] HEMATOLOGY Hgb 15.4 14.0 - 02/20 18.0 /2019 [facility] HEMATOLOGY WBC 10.1 3.7 - 10.4 02/20 /2018 [facility] HEMATOLOGY RBC 5.11 4.70 - 02/20 6.10 /2019 [facility] HEMATOLOGY Hct 46.3 42.0 - 02/20 MH 54.0 /2019 [facility] HEMATOLOGY MCHC 33.3 32.0 - 02/20 36.0 /2019 [facility] HEMATOLOGY RDW 14.1 11.5 - 02/20 14.5 /2019 [facility] HEMATOLOGY MCV 90.6 80.0 - 02/20 94.0 /2019 [facility] HEMATOLOGY MCH 30.2 27.0 - 02/20 31.0 /2019 [facility] CHEM PANEL Lipase Lvl 205 73 - 393 01/10 [facility] CHEM PANEL A/G Ratio 1.1 0.7 - 1.6 01/10 [facility] CHEM PANEL B/C Ratio 10 6 - 25 01/10 [facility] CHEM PANEL Globulin 3.3 2.7 - 4.2 01/10 [facility] CHEM PANEL AGAP 11.2 10.0 - 01/10 MH 20.0 /2017 [facility] CHEM PANEL eGFR 89 01/10 Comment: The [facility] eGFR is [place] calculated using the CKD-EPI formula. In most young, healthy individuals the eGFR will be >90 mL/min/1.73m2 . The eGFR declines with age. An eGFR of 60-89 may be normal in some populations, particularly the elderly, for whom the CKD-EPI formula has not been extensively validated. Use of the eGFR is not recommended in the following populations:< br/>
Yesenia viduals with unstable creatinine concentration s, including patients and those with serious co-morbid conditions.<b r/>
Patie nts with extremes in muscle mass or diet.

The data above are obtained from the National Kidney Disease Education Program (NKDEP) which additionally recommends that when the eGFR is used in patients with extremes of body mass index for purposes of drug dosing, the eGFR should be multiplied by the estimated BMI. CHEM PANEL Alk Phos 81 39 - 136 01/10 [facility] CHEM PANEL Bili Total 0.3 0.2 - 1.3 01/10 [facility] CHEM PANEL Total 6.9 6.4 - 8.4 01/10 [facility] CHEM PANEL CO2 27 24 - 32 01/10 [facility] CHEM PANEL Calcium Lvl 8.5 8.5 - 10.5 01/10 [facility] CHEM PANEL ALT 53 0 - 65 01/10 [facility] CHEM PANEL AST 34 0 - 37 01/10 [facility] CHEM PANEL Albumin Lvl 3.6 3.5 - 5.0 01/10 [facility] CHEM PANEL Potassium 4.2 3.5 - 5.1 01/10 Lvl [facility] CHEM PANEL Chloride Lvl 108 95 - 109 01/10 [facility] CHEM PANEL Creatinine 1.11 0.50 - 01/10 Lvl 1.40 /2017 [facility] CHEM PANEL Sodium Lvl 142 135 - 145 01/10 [facility] CHEM PANEL Glucose Lvl 85 70 - 99 01/10 [facility] CHEM PANEL BUN 11 7 - 22 01/10 /2017 [facility] HEMATOLOGY Eosinophils 0.2 0.0 - 0.5 01/10 MH # /2018 [facility] HEMATOLOGY Monocytes # 0.5 0.0 - 0.8 01/10 /2017 [facility] HEMATOLOGY Lymphocytes 2.6 1.0 - 5.5 01/10 MH # /2017 [facility] HEMATOLOGY Neutrophils 4.2 1.5 - 8.1 01/10 MH # /2018 [facility] HEMATOLOGY Segs 55.1 45.0 - 01/10 75.0 /2017 [facility] HEMATOLOGY Monocytes 6.8 2.0 - 12.0 01/10 /2017 [facility] HEMATOLOGY Lymphocytes 34.7 20.0 - 01/10 MH 40.0 /2017 [facility] HEMATOLOGY Eosinophils 2.9 0.0 - 4.0 01/10 [facility] HEMATOLOGY Basophils 0.5 0.0 - 1.0 01/10 [facility] HEMATOLOGY MPV 9.3 7.4 - 10.4 01/10 /2017 [facility] HEMATOLOGY WBC 7.6 3.7 - 10.4 01/10 [facility] HEMATOLOGY MCV 92.1 80.0 - 01/10 94.0 /2017 [facility] HEMATOLOGY Hgb 16.9 14.0 - 01/10 18.0 /2017 [facility] HEMATOLOGY Hct 51.0 42.0 - 01/10 54.0 /2017 [facility] HEMATOLOGY RDW 14.0 11.5 - 01/10 14.5 /2017 [facility] HEMATOLOGY MCHC 33.0 32.0 - 01/10 36.0 /2017 [facility] HEMATOLOGY MCH 30.4 27.0 - 01/10 31.0 /2017 [facility] HEMATOLOGY Platelet 211 133 - 450 01/10 [facility] HEMATOLOGY RBC 5.54 4.70 - 01/10 6.10 /2018 [facility] URINE AND UA Mucus Few /LPF None Seen 01/10 STOOL /LPF /2017 [facility] URINE AND UA WBC <1 0 - 5 01/10 STOOL /2017 [facility] URINE AND UA Bacteria Occasional None Seen 01/10 STOOL /HPF /HPF /2017 [facility] URINE AND UA Sq Epi Occasional Few /LPF 01/10 STOOL /LPF /2017 [facility] URINE AND UA Leuk Est Negative Negative 01/10 STOOL (01/10/18 12:16 PM) /2017 [facility] URINE AND UA Nitrite Negative Negative 01/10 STOOL (01/10/18 12:16 PM) [facility] URINE AND Micro? Performed 01/10 STOOL (01/10/18 12:16 PM) [facility] URINE AND UA Spec Grav 1.020 <=1.030 01/10 STOOL [facility] URINE AND UA pH 6.0 5.0 - 8.0 01/10 STOOL /2017 [facility] URINE AND UA Glucose Negative Negative 01/10 STOOL *NA* /2017 [facility] (01/10/18 12:16 PM) [place] URINE AND UA Protein Negative Negative 01/10 STOOL (01/10/18 12:16 PM) [facility] URINE AND UA Blood Negative Negative 01/10 STOOL (01/10/18 12:16 PM) [facility] URINE AND UA Bili Negative Negative 01/10 STOOL *NA* /2017 [facility] (01/10/18 12:16 PM) [place] URINE AND UA Ketones Negative 01/10 STOOL /2017 [facility] URINE AND UA <=1.0 0.1 - 1.0 01/10 STOOL Urobilinogen mg/dL /2017 [facility] URINE AND UA Color Yellow Yellow 01/10 STOOL *NA* /2017 [facility] (01/10/18 12:16 PM) [place] URINE AND UA Turbidity Clear Clear 01/10 STOOL (01/10/18 12:16 PM) Pedro hernandez [facility] CHEM PANEL eGFR 81 11/27 Result Comment: The [facility] eGFR is calculated using the CKD-EPI formula. In most young, healthy individuals the eGFR will be >90 mL/min/1.73m2 . The eGFR declines with age. An eGFR of 60-89 may be normal in some populations, particularly the elderly, for whom the CKD-EPI formula has not been extensively validated. Use of the eGFR is not recommended in the following populations:< br/>
Yesenia viduals with unstable creatinine concentration s, including patients and those with serious co-morbid conditions.<b r/>
Patie nts with extremes in muscle mass or diet.

The data above are obtained from the National Kidney Disease Education Program (NKDEP) which additionally recommends that when the eGFR is used in patients with extremes of body mass index for purposes of drug dosing, the eGFR should be multiplied by the estimated BMI. CHEM PANEL Alk Phos 71 39 - 136 11/27 [facility] CHEM PANEL AST 22 0 - 37 11/27 [facility] CHEM PANEL ALT 37 0 - 65 11/27 [facility] CHEM PANEL Total 6.7 6.4 - 8.4 11/27 Protein [facility] CHEM PANEL Albumin Lvl 3.6 3.5 - 5.0 11/27 [facility] CHEM PANEL CO2 30 24 - 32 11/27 [facility] CHEM PANEL Calcium Lvl 8.3 8.5 - 10.5 11/27 [facility] CHEM PANEL Potassium 4.2 3.5 - 5.1 11/27 Lvl [facility] CHEM PANEL Chloride Lvl 107 95 - 109 11/27 [facility] CHEM PANEL Creatinine 1.19 0.50 - 11/27 MH Lvl 1.40 [facility] CHEM PANEL Sodium Lvl 144 135 - 145 11/27 [facility] CHEM PANEL BUN 9 7 - 22 11/27 [facility] CHEM PANEL Glucose Lvl 92 70 - 99 11/27 [facility] CHEM PANEL Bili Total 0.3 0.2 - 1.3 11/27 [facility] CHEM PANEL AGAP 11.2 10.0 - 10 MH 20.0 /2017 [facility] CHEM PANEL A/G Ratio 1.2 0.7 - 1.6 11/27 [facility] CHEM PANEL B/C Ratio 8 6 - 25 11/27 [facility] CHEM PANEL Globulin 3.1 2.7 - 4.2 11/27 [facility] HEMATOLOGY Eosinophils 0.1 0.0 - 0.5 11/27 MH # /2017 [facility] HEMATOLOGY Lymphocytes 4.3 1.0 - 5.5 11/27 # [facility] HEMATOLOGY Monocytes # 0.8 0.0 - 0.8 11/27 [facility] HEMATOLOGY Basophils 0.5 0.0 - 1.0 11/27 [facility] HEMATOLOGY Neutrophils 5.5 1.5 - 8.1 11/27 MH # [facility] HEMATOLOGY Eosinophils 0.8 0.0 - 4.0 11/27 [facility] HEMATOLOGY Lymphocytes 40.4 20.0 - 11/27 MH 40.0 [facility] HEMATOLOGY Monocytes 7.2 2.0 - 12.0 11/27 [facility] HEMATOLOGY Segs 51.1 45.0 - 11/27 MH 75.0 [facility] HEMATOLOGY MPV 8.9 7.4 - 10.4 11/27 [facility] HEMATOLOGY RDW 13.5 11.5 - 11/27 MH 14.5 [facility] HEMATOLOG[facility] Platelet 215 133 - 450 11/27 [facility] HEMATOLOGY MCHC 33.4 32.0 - 11/27 MH 36.0 [facility] HEMATOLOGY WBC 10.7 3.7 - 10.4 11/27 [facility] HEMATOLOGY MCV 91.8 80.0 - 11/27 MH 94.0 [facility] HEMATOLOGY MCH 30.6 27.0 - 11/27 MH 31.0 [facility] HEMATOLOGY Hct 52.2 42.0 - 11/27 MH 54.0 [facility] HEMAT[facility] RBC 5.69 4.70 - 11/27 MH 6. [facility] HEMATOLOGY Hgb 17.4 14.0 - 11/27 MH 18.0 [facility] URINE AND UA Mucus Few /LPF None Seen 11/27 STOOL /LPF /2017 [facility] URINE AND UA Amorph Occasional None Seen 11/27 STOOL Mikayla /HPF /HPF [facility] URINE AND UA Leuk Est Negative Negative 11/27 STOOL (11/26/17 9:24 PM) [facility] and URINE AND UA WBC 1 0 - 5 11/27 STOOL [facility] URINE AND UA RBC 4 0 - 2 11/27 STOOL [facility] URINE AND UA Sq Epi None Seen 11/27 STOOL [facility] URINE AND UA Spec Grav 1.025 <=1.030 11/27 STOOL [facility] URINE AND UA pH 7.0 5.0 - 8.0 11/27 STOOL [facility] URINE AND UA Turbidity Slight Clear 11/27 STOOL *ABN* /2017 [facility] (11/26/17 9:24 PM) URINE AND UA Color Yellow Yellow 11/27 STOOL *NA* /2017 [facility] (11/26/17 9:24 PM) URINE AND UA 2.0 0.1 - 1.0 11/27 STOOL Urobilinogen /2017 [facility] URINE AND UA Nitrite Negative Negative 11/27 STOOL (11/26/17 9:24 PM) [facility] and URINE AND UA Blood Negative Negative 11/27 STOOL (11/26/17 9:24 PM) [facility] and URINE AND UA Bili Negative Negative 11/27 STOOL *NA* /2017 [facility] (11/26/17 9:24 PM) URINE AND UA Ketones Negative Negative 11/27 STOOL mg/dL mg/dL [facility] URINE AND UA Protein Negative Negative 11/27 STOOL mg/dL mg/dL [facility] URINE AND UA Glucose Negative Negative 11/27 STOOL mg/dL mg/dL [facility] CHEM PANEL eGFR 97 11/07 Comment: The [facility] eGFR is calculated using the CKD-EPI formula. In most young, healthy individuals the eGFR will be >90 mL/min/1.73m2 . The eGFR declines with age. An eGFR of 60-89 may be normal in some populations, particularly the elderly, for whom the CKD-EPI formula has not been extensively validated. Use of the eGFR is not recommended in the following populations:< br/>
Yesenia viduals with unstable creatinine concentration s, including patients and those with serious co-morbid conditions.<b r/>
Patie nts with extremes in muscle mass or diet.

The data above are obtained from the National Kidney Disease Education Program (NKDEP) which additionally recommends that when the eGFR is used in patients with extremes of body mass index for purposes of drug dosing, the eGFR should be multiplied by the estimated BMI. CHEM PANEL Glucose Lvl 81 70 - 99 11/07 [facility] CHEM PANEL BUN 9 7 - 22 11/07 [facility] CHEM PANEL Bili Total 0.3 0.2 - 1.3 11/07 [facility] CHEM PANEL ALT 34 0 - 65 11/07 [facility] CHEM PANEL AST 23 0 - 37 11/07 [facility] CHEM PANEL Alk Phos 68 39 - 136 11/07 [facility] CHEM PANEL Total 6.9 6.4 - 8.4 11/07 Protein [facility] CHEM PANEL Albumin Lvl 3.7 3.5 - 5.0 11/07 [facility] CHEM PANEL Calcium Lvl 8.3 8.5 - 10.5 11/07 [facility] CHEM PANEL CO2 29 24 - 32 11/07 [facility] CHEM PANEL Potassium 3.8 3.5 - 5.1 11/07 MH Lvl /2017 [facility] CHEM PANEL Chloride Lvl 109 95 - 109 11/07 [facility] CHEM PANEL Creatinine 1.03 0.50 - 11/07 MH Lvl 1.40 [facility] CHEM PANEL Sodium Lvl 143 135 - 145 11/07 [facility] CHEM PANEL A/G Ratio 1.2 0.7 - 1.6 11/07 [facility] CHEM PANEL B/C Ratio 9 6 - 25 11/07 [facility] CHEM PANEL Globulin 3.2 2.7 - 4.2 11/07 [facility] CHEM PANEL AGAP 8.8 10.0 - 11/07 MH 20.0 [facility] HEMATOLOGY WBC 7.7 3.7 - 10.4 11/07 [facility] HEMATOLOGY Hgb 15.6 14.0 - 11/07 MH 18.0 [facility] HEMATOLOGY RBC 4.97 4.70 - 11/07 MH 6.10 [facility] HEMATOLOGY MCV 89.7 80.0 - 11/07 MH 94.0 [facility] HEMATOLOGY Hct 44.6 42.0 - 11/07 MH 54.0 [facility] HEMATOLOGY MPV 8.3 7.4 - 10.4 11/07 [facility] HEMATOLOGY Platelet 221 133 - 450 11/07 [facility] HEMATOLOGY RDW 13.7 11.5 - 11/07 MH 14.5 [facility] HEMATOLOGY MCHC 34.9 32.0 - 11/07 MH 36.0 [facility] HEMATOLOGY MCH 31.3 27.0 - 11/07 MH 31.0 [facility] HEMATOLOGY Monocytes 4.3 2.0 - 12.0 11/07 [facility] HEMATOLOGY Segs 52.8 45.0 - 11/07 MH 75.0 [facility] HEMATOLOGY Lymphocytes 40.3 20.0 - 11/07 MH 40.0 [facility] HEMATOLOGY Monocytes # 0.3 0.0 - 0.8 11/07 [facility] HEMATOLOGY Lymphocytes 3.1 1.0 - 5.5 11/07 MH # /2018 [facility] HEMATOLOGY Neutrophils 4.1 1.5 - 8.1 11/07 MH # /2017 [facility] HEMATOLOGY Basophils 0.5 0.0 - 1.0 11/07 [facility] HEMATOLOGY Eosinophils 2.1 0.0 - 4.0 11/07 [facility] HEMATOLOGY Eosinophils 0.2 0.0 - 0.5 11/07 # /2018 [facility] URINE AND UA Color COLORLESS 11/06 STOOL [facility] URINE AND UA <=1.0 0.1 - 1.0 11/06 STOOL Urobilinogen mg/dL /2017 [facility] URINE AND UA Sq Epi None Seen 11/06 STOOL [facility] URINE AND UA Bacteria Occasional None Seen 11/06 STOOL /HPF /HPF /2017 [facility] URINE AND UA WBC <1 0 - 5 11/06 [facility] URINE AND UA RBC 1 0 - 2 11/06 STOOL [facility] URINE AND UA Leuk Est Negative Negative 11/06 STOOL (11/06/17 6:48 PM) [place] URINE AND UA Nitrite Negative Negative 11/06 STOOL (11/06/17 6:48 PM) /2017 [place] URINE AND UA Blood Negative Negative 11/06 STOOL (11/06/17 6:48 PM) [place] URINE AND UA Bili Negative Negative 11/06 STOOL *NA* /2017 [facility] (11/06/17 6:48 PM) URINE AND UA Spec Grav 1.003 <=1.030 11/06 STOOL [facility] URINE AND UA Protein Negative Negative 11/06 STOOL mg/dL mg/dL [facility] URINE AND UA pH 6.0 5.0 - 8.0 11/06 STOOL 2018 [facility] URINE AND UA Ketones Negative Negative 11/06 STOOL mg/dL mg/dL [facility] URINE AND UA Glucose Negative Negative 11/06 STOOL mg/dL mg/dL [facility] URINE AND UA Turbidity Clear Clear 11/06 STOOL (11/06/17 6:48 PM) /2017 [place] Pathology Reports No Data Provided for This Section Diagnostic Reports Report Value Date Source Abdomen/Pelvis w IV Radiation Dose CTDIVOL = 0 (mGy): DLP = 429 (mGy-cm) 09/27/2019 [facility] contrast CT PROCEDURE INFORMATION: Exam: CT Abdomen And Pelvis With Contrast Exam date and time: 09/27/2019 3:31 PM Age: 34 years old Clinical indication: Right lower quadrant pain; Additional info: R10.31 right lower quadrant pain/r10.31 right lower quadrant pain TECHNIQUE: Imaging protocol: Computed tomography of the abd omen and pelvis with intravenous contrast. Radiation optimization: All CT scans at this facility use at least one of these dose optimization techniques: automated exposure control; mA and/or kV adjustment per patient size (includes targeted e xams where dose is matched to clinical indication); or iterative reconstructio n. Contrast material: OMNI; Contrast volume: 100 ml ; Contrast route: INTRAVENOUS (IV); COMPARISON: RENAL STONE CT 11/26/2017 9:46 PM RADIATION DOSE METRICS: Total DLP (mGy-cm): 429 FINDINGS: Lungs: Visualized lung bases are clear. Liver: Mild diffuse fatty infiltration of liver. Gallbladder and bile ducts: Normal. No calcified stones. No ductal dilation. Pancreas: Normal. No ductal dilation. Spleen: Normal. No splenomegaly. Adrenals: Normal. No mass. Kidneys and ureters: Left nephrectomy postoperat ramona changes. No residual recurrence abnormal soft tissue in the post neph rectomy bed. Right kidney and ureter are normal. Stomach and bowel: Small hia caleb hernia. The remaining gastrointestinal tract is normal. Appendix: Appendix is normal. Intraperitoneal space: Unremarkable. No free air . No significant fluid collection. Vasculature: Aortoiliac arterial system is darwin l. Celiac axis, SMA, and LAZARO are patent. No abdominal aortic aneurysm. Lymph nodes: Unremarkable. No enlarged lymph nod es. Bladder: Unremarkable as visualized. Reproductive: Unremarkable as visualized. 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 Soft tissues: Unremarkable. IMPRESSION: 1. Small hiatal hernia. 2. Mild diffuse fatty infiltration of liver. 3. Left nephrectomy postoper ative changes. No residual recurrence abnormal soft tissue in the post nephrectomy bed. Yuliana Heck MD On 09/27/2019 16:57:50 ; [id number] Abdomen 2 views DX Clinical Indication: - abdominal pain; hx: hernia. 08/20/2018 [facility] Comparison: None. FINDINGS: The supine and upright views of the abdomen shows a non-obstructive bowel gas pattern. There is no abnormal dilatation of bowel loops. No significant air fluid levels. There is no pneumoperitoneum. Ther e are no radiopaque densitie s noted. There are no acute osseous abnormalities noted. IMPRESSION: Unremarkable abdomen series. SL: [id number] Scrotal/Testicle US Study: SCROTAL ULTRASOUND WITH DOPPLER IMAGI NG 05/05/2018 [facility] [facility] Clinical Indication: - N50. 819 Testicular pain, unspecified/right testicular pain; Comparison: None FINDINGS: High-resolution imaging, col or flow imaging and spectral Doppler analysis was performed. Right hemiscrotum: The testicle is normal in si ze and demonstrates a normal homogeneous sonographic texture. No mass is evident. The epididymis appears normal. There is normal testicular and epididymal blood flow. Tiny hydrocele is noted. Left hemiscrotum: The testicle is normal in si ze and demonstrates a normal homogeneous sonographic texture. No mass is evident. The epididymis appears normal. There is normal testicular and epididymal blood flow. Tiny hydrocele is noted. IMPRESSION: Tiny bilateral hydroceles, otherwise normal exam ination. SL: [id number] Brain wo contrast MRI Patient Name: JOSE RAMOS 02/20/2018 [facility] : 1985. Age: 33 years. Gender: Male. MR: [id number]. Location: [facility]. Provider: Iain Hatfield DO. EXAM: Brain wo contrast MRI. PROVIDED CLINICAL HISTORY: Weakness and headac hes. TECHNIQUE: Multi-sequence, m ulti-planar MR of the brain without gadolinium contrast. COMPARISON: CT Brain performed 02/19/2018. FINDINGS: BRAIN: No areas of abnormall y-restricted diffusion in a pattern suggestive of acute or early subacute ischemia. No clinically significant white matter signal abnormality. No acute intracranial hemorrha ge. No other fluid collectio n. No intracranial mass. No cerebellar tonsillar ectopia. Age-consistent brain parenchymal volume. VENTRICLES / CISTERNS / SHIF T: No hydrocephalus. No significant effacement of the basal cisterns or foramen magnum. No significant midline shift. VESSELS: No loss of flow vo ids within the major intracranial vessels or dural sinuses. Vessel and dural sinus patency are not adequately assessed without dedicated angiography or venography. BONES / SCALP: Old fracture of the left medial orbital wall. No acute fracture. No significant systemic marrow signal abnormality. No aggressive bony lesions. No significant extracranial soft tissue abnormality. IMAGED SINUSES / MASTOIDS / MISC: No significant sinus mucosal thickening. No significant paranasal sinus fluid. No significant mastoid signal abnormality. IMPRESSION: No acute intracranial abnormality. No acute paranasal sinusitis , mastoiditis or other definite MR explanation for the presenting symptoms. 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 ADDITIONAL INFORMATION: . COMPARISON: None. TECHNIQUE: Routine axial CT images of the brain were obtained. IV contrast: None. CT imaging performed at this location utilizes radiation dose optimization techniques which include one or more of the following: -Automated exposure control -Adjustment of the mA and/or kV according to pat ient size -Use of iterative reconstruction technique CT Radiation Dose DLP 1580 mGy-cm FINDINGS: Non-contrast images of the h ead demonstrate no edema, hemorrhage, mass lesion or other acute intracranial abnormality. Fernandez-white matter distinctio n is preserved. The ventricles are normal. The basal cisterns and sulci are normal in size. The paranasal sinuses and ma stoids are unremarkable. Old traumatic fracture to the medial wall of the left orbit. IMPRESSION: 1. No definite acute infarct or intracranial hem orrhage detected. If there is further concern for intracranial pathology or acute stroke, MRI of the brain may be performed for complete assessment. 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 IMPRESSION: Stable moderatel y enlarged cardiac silhouette and prominent mediastinum. Low lung volume. No focal consolidation, significant pleural effusion or pneumothorax. SL: CALEB-REHAN Chest 2 views DX PROCEDURE: CHEST TWO VIEW 01/30/2018 [facility] INDICATION: Cough and fever, hemoptysis COMPARISON: None. FINDINGS: The lungs are meg r. The pleura, cardiomediastinal silhouette and bony thorax are normal. No vascular congestion is present. IMPRESSION: No acute cardiopulmonary process. SL: [id number] Renal Lasix Scan NM Clinical Indication: - hist ory of l ureteral obstruction sp nephrectomy, now with symptoms of R renal colic and no stones. 01/14/2018 [facility] Comparison: CT renal stone 12/27/2017, retroperi toneal sonogram 01/10/2018 TECHNIQUE: Renal scan is performed usin g 11 mCi of Tc 99m mag 3, which was administered intravenously. IV Site: Right Antecubital The Lasix renogram was perfo rmed using 35 mg of intravenous Lasix at 20 minutes. Renal angiographic imaging w as performed in the frontal plane immediately after radiotracer administration at 5 seconds/frame for 60 seconds. Pre and post Lasix static im aging was performed in the frontal plane at 1 minute intervals for 40 minutes. FINDINGS: The radionuclide angiographi c images show normal right with prompt perfusion and prompt nephrogram. Normal excretion into the nondilated renal collecting system. The right ureter and the urinary bladder are vis ualized on the exam. The split renal blood flow/ [facility] 2 to 3 minutes is Left 0 %. The left kidney is surgically absent. Right 100 % After administration of Lasix the T-1/2 is: Right kidney 11 minutes. ( Normal < 10 minutes, indeterminate 10 to 20 minutes, abnormal > 20 minutes). IMPRESSION: Normal renal Lasix scan exam without scintigraphic evidence for on the right obstruction Left kidney is surgically absent. SL: TERRY Retroperitoneal Complete Clinical Indication: - Rule out right-sided hydronephrosis 01/10/2018 [facility] US Comparison: CT abdomen and pelvis 11/26/2017 TECHNIQUE: Multiple longitudinal and tr ansverse real time sonographic images of the kidneys and urinary bladder are obtained. FINDINGS: KIDNEY: The right kidney measures 12.8 cm. The left kidney has been removed. No right hydronephrosis. No right renal masses. Normal contour. No stones identified. BLADDER: Scanning through the pelvis reveals the bladder to be partially distended with anechoic urine. Right ureteral jet is not seen. ASCITES: No ascites noted. VESSELS: The visualized portions of t he aorta, IVC, and proximal common iliac arteries show no significant abnormalities. IMPRESSION: Unremarkable appearance of the right kidney. No hydronephrosis. Left kidney is surgically absent. SL: [id number] Renal Stone CT Clinical Indication: Right flank pain. [facility] Comparison: 11/06/2017 TECHNIQUE: Sequential trans- axial images were obtained with a multi-detector helical CT without administration of iodinated contrast. Coronal and sagittal reconstructions were obtained. No oral contrast material was used for the exam. CT imaging performed at this location utilizes radiation dose optimization techniques which include one or more of the following: -Automated exposure control -Adjustment of the mA and/or kV according to pat ient size -Use of iterative reconstruction technique CT Radiation Dose DLP 762.51 mGy-cm FINDINGS: This examination is limited for the evaluation of solid organs and vascular structures due to lack of intravenous contrast, which is standard for urinary calculus assessment CT. CHEST BASE: No focal infiltrate. No effusion or pneumothorax. Heart size normal. No pericardial effusion. KIDNEYS/COLLECTING SYSTEMS: Right kidney: Normal size and contour. No calcif ied stone. Right ureter: No hydronephrosis or obstructing c alcified stone. Left kidney is surgically ab sent. No abnormal findings in the post nephrectomy bed.. Bladder: Decompressed.. LIVER: Size within normal limits. Normal contours. GALLBLADDER: No radiopaque gallstones. No pericholecystic flu id PANCREAS: No surrounding inflammation. SPLEEN: Normal size. No obvious lesions. ADRENAL GLANDS: Normal contour bilaterally. No detected lesions. BOWEL: Limited assessment without oral contrast. Stomach: Unremarkable. Small bowel: No obstructive pattern. No suspecte d inflammation. Appendix: Visualized portions noninflamed. Large bowel: Within normal limits. PELVIC ORGANS: Prostate gland normal in size. Seminal vesicles within normal limits. PERITONEUM/RETROPERITONEUM: No organized fluid collection. No free air. No pathologically enlarged l ymph nodes are seen in the abdomen, retroperitoneum, or pelvis. Aorta is normal in caliber without aneurysmal di latation. MUSCULOSKELETAL: No acute fracture or dislocation. No lytic or blastic lesion. Surrounding subcutaneous tissues within normal l imits. IMPRESSION: 1. No right renal or ureteral calculi. 2. Surgically absent left kidney. SL: [id number] Renal Stone CT EXAM: CT ABDOMEN AND PELVIS WITHOUT CONTRAST [facility] DATE: 11/06/2017 5:50 PM CDT INDICATION: Abdominal pain. COMPARISON: None. TECHNIQUE: Helical CT imagin g of the abdomen and pelvis performed from lung bases through the lesser trochanters without intravenous contrast. Axial, sagittal, and coronal multiplanar reconstructions w ere provided. IV contrast: None. CT Radiation Do se: DLP = 748.21 mGy-cm FINDINGS: Evaluation of the solid organs is limited withou t intravenous contrast. LOWER CHEST: The lung bases are clear of focal consolidation, pleural effusions, and pneumothorax. The heart is unremarkable without evidence for a pericardial effusion. LIVER: Unremarkable. GALLBLADDER/BILIARY: Unremarkable. PANCREAS: Unremarkable SPLEEN: Unremarkable ADRENALS: Unremarkable KIDNEYS AND URETERS: Left ne phrectomy, with compensatory enlargement of the right kidney. No obstructing calculi or hydronephrosis are visualized on this exam. BLADDER: Unremarkable STOMACH: Unremarkable. BOWEL: The small bowel is no rmal in course and caliber without focal wall thickening or evidence for obstruction. The colon is unremarkable. APPENDIX: The appendix is visualized and unremar kable. PELVIS: No pelvic masses are identified. PERITONEUM: No ascites or free air. LYMPH NODES: Unremarkable. VASCULAR: Unremarkable. OSSEOUS STRUCTURES: No acute osseous abnormality . SOFT TISSUES: Unremarkable IMPRESSION: 1. No obstructing calculi or hydronephrosis. 2. Postsurgical changes related to a left nephre ctomy. SL: [id number] Consultation Notes No Data Provided for This Section Discharge Summaries No Data Provided for This Section History and Physicals No Data Provided for This Section Vital Signs Vital Sign Value Date Comments Source Systolic (mm Hg) 124 04/07/2019 [facility] Diastolic (mm Hg) 90 04/07/2019 [facility] Heart Rate 92 04/07/2019 [facility] Respitory Rate 18 04/07/2019 [facility] Temperature Oral (F) 98.4 F 04/07/2019 [facility] Height 165.1 cm 04/07/2019 [facility] BMI Calculated 32.68 04/07/2019 [facility] Weight 89.091 04/07/2019 [facility] Systolic (mm Hg) 136 08/22/2018 [facility] Diastolic (mm Hg) 79 08/22/2018 [facility] Respitory Rate 20 08/22/2018 [facility] Respitory Rate 17 08/22/2018 [facility] Systolic (mm Hg) 129 08/22/2018 [facility] Diastolic (mm Hg) 86 08/22/2018 [facility] Systolic (mm Hg) 120 08/22/2018 [facility] Diastolic (mm Hg) 85 08/22/2018 [facility] Respitory Rate 16 08/22/2018 [facility] Heart Rate 73 08/22/2018 [facility] Respitory Rate 18 08/21/2018 [facility] Systolic (mm Hg) 138 08/21/2018 [facility] Diastolic (mm Hg) 84 08/21/2018 [facility] Heart Rate 71 08/21/2018 [facility] Temperature Oral (F) 98.1 F 08/21/[address] [facility] [address] [facility] Respitory Rate 18 08/21/2018 [facility] Heart Rate 78 08/21/2018 [facility] Temperature Oral (F) 98.2 F 08/21/[address] [facility] [address] [facility] Systolic (mm Hg) 127 08/21/2018 [facility] Diastolic (mm Hg) 88 08/21/2018 [facility] BMI Calculated 33.35 08/21/2018 [facility] Temperature Oral (F) 98.4 F 08/21/[address] [facility] [address] [facility] Height 165.1 cm 08/21/2018 [facility] Weight 90.909 08/21/2018 [facility] Systolic (mm Hg) 130 08/21/2018 [facility] Diastolic (mm Hg) 96 08/21/2018 [facility] Respitory Rate 20 08/21/2018 [facility] Heart Rate 76 08/21/2018 [facility] Heart Rate 82 08/19/2018 [facility] BMI Calculated 34.8 08/19/2018 [facility] Weight 91.955 08/19/2018 [facility] Height 162.56 cm 08/19/2018 [facility] Height 165.1 cm 05/03/2018 [facility] BMI Calculated 33.35 05/03/2018 [facility] Weight 90.909 05/03/2018 [facility] Heart Rate 69 05/03/2018 [facility] Systolic (mm Hg) 127 05/03/2018 [facility] Diastolic (mm Hg) 83 05/03/2018 [facility] Respitory Rate 18 02/20/2018 [facility] Systolic (mm Hg) 134 02/20/2018 [facility] Diastolic (mm Hg) 79 02/20/2018 [facility] Heart Rate 89 02/20/2018 [facility] Temperature Oral (F) 98.0 F 02/20/[address] [facility] [address] [facility] Temperature Oral (F) 98.0 F 02/20/[address] [facility] [address] [facility] Respitory Rate 18 02/20/2018 [facility] Heart Rate 76 02/20/2018 [facility] Systolic (mm Hg) 109 02/20/2018 [facility] Diastolic (mm Hg) 68 02/20/2018 [facility] Respitory Rate 18 02/20/2018 [facility] Temperature Oral (F) 97.6 F 02/20/[address] [facility] [address] [facility] Systolic (mm Hg) 87 02/20/2018 [facility] Diastolic (mm Hg) 51 02/20/2018 [facility] Weight 107.273 02/20/2018 [facility] Heart Rate 101 02/20/2018 [facility] Weight 106.818 02/20/2018 [facility] BMI Calculated 36.88 02/20/2018 [facility] Height 170.18 cm 02/20/2018 [facility] Height 165.1 cm 01/30/2018 [facility] Weight 90.17 01/30/2018 [facility] BMI Calculated 33.08 01/30/2018 [facility] Temperature Oral (F) 98.8 F 01/30/2018 [facility] Respitory Rate 18 01/30/2018 [facility] Heart Rate 81 01/30/2018 [facility] Systolic (mm Hg) 125 01/30/2018 [facility] Diastolic (mm Hg) 89 01/30/2018 [facility] Heart Rate 84 01/10/2018 [facility] Respitory Rate 18 01/10/2018 [facility] Systolic (mm Hg) 135 01/10/2018 [facility] Diastolic (mm Hg) 88 01/10/2018 [facility] Temperature Oral (F) 98.1 F 01/10/[address] [facility] [address] [facility] Weight 88.636 01/10/2018 [facility] Heart Rate 70 01/10/2018 [facility] Systolic (mm Hg) 138 01/10/2018 [facility] Diastolic (mm Hg) 98 01/10/2018 [facility] Temperature Oral (F) 98.1 F 01/10/[address] [facility] [address] [facility] Respitory Rate 18 01/10/2018 [facility] Weight 86.364 12/08/2017 [facility] Height 167.64 cm 12/08/2017 [facility] BMI Calculated 30.73 12/08/2017 [facility] Respitory Rate 16 12/08/2017 [facility] Heart Rate 81 12/08/2017 [facility] Systolic (mm Hg) 132 12/08/2017 [facility] Diastolic (mm Hg) 78 12/08/2017 [facility] Systolic (mm Hg) 144 11/27/2017 [facility] Diastolic (mm Hg) 94 11/27/2017 [facility] Resp[facility] Rate 16 11/27/2017 [facility] Heart Rate 72 11/27/2017 [facility] Temperature Oral (F) 98.3 F 11/27/2017 [facility] Height 167.64 cm 11/27/2017 [facility] BMI Calculated 30.21 11/27/2017 [facility] Weight 84.9 11/27/2017 [facility] Temperature Oral (F) 98.1 F 11/27/2017 [place] Heart Rate 68 11/27/2017 [facility] Respitory Rate 17 11/27/2017 [facility] Systolic (mm Hg) 147 11/27/2017 [facility] Diastolic (mm Hg) 92 11/27/2017 [place] [facility] Respitory Rate 17 11/07/2017 [facility] Heart Rate 65 11/07/2017 [facility] Systolic (mm Hg) 149 11/07/2017 [facility] Diastolic (mm Hg) 91 11/07/2017 [facility] [facility] Temperature Oral (F) 98.9 F 11/07/2017 [place] Respitory Rate 18 11/06/2017 [facility] Temperature Oral (F) 98.6 F 11/06/2017 [facility] Heart Rate 69 11/06/2017 [facility] Systolic (mm Hg) 162 11/06/2017 [facility] Diastolic (mm Hg) 94 11/06/2017 [facility] Weight 81.818 11/06/2017 [facility] Encounters Location Location Encounter Encounter Reason Attending ADM HI Stat us Source Details Type Number For Provider Date Date Visit [facility] [id number] Lavelle 11/06 11/07 [facility]2017 [facility] [id number] Lavelle 11/27 11/27 [facility] Outpatient [id number] JOHN 12/08 [facility] Outpatient [id number] John 12/08 12/09 [facility] PreRe [id number] John 12/10 12/16 [facility] [id number] Ross James 01/10 01[facility]10 [facility] [id number] John 01/14 01/15 [facility] [id number] Wilfredo 01/30 01/31 J[facility] [id number] Rannieri 02/20 02/20 [facility] [id number] JOHN 05/03 [facility] [id number] John 05/03 05/04 [facility] [id number] John 05/05 05/06 [facility] [id number] JOHN 06/14 Active [facility] Ambulatory [id number] John 06/14 06/14 [facility] [id number] LINA 06/22 Active [facility] Ambulatory [id number] Lina 06/22 06/22 [facility] [id number] John 08/11 Active [facility] [id number] John 08/11 08/11 [facility] Pre[facility] [id number] Tao James 08/21 08/21 [facility] /2018 [facility] [id number] Percy 08/22 08/22 Jovon [place] [facility] [id number] John 09/15 Active [facility] [id number] John 09/23 09/23 Urology Pre[facility]Reg [facility] [id number] Ash 04/07 04/08 J[facility] /2019 [facility] Out[facility] [id number] Percy 09/26 09/27 [facility] [place] [facility] /2019 [facility] Procedures Procedure Code Date Perfomer Comments Source Nephrectomy [id number] [facility] [place] Assessment and Plan Assessment and Plan Date Source Extracted from:Title: Clinical Document 08/22/2018 [facility] Author: Percy Pinon MD Date: 08/22/18 DATE OF OPERATION/PROCEDURE: August 22, 2018 *_*_* PREOPERATIVE DIAGNOSIS: Bilateral inguinal hernia. POSTOPERATIVE DIAGNOSIS: Bilateral inguinal hernia. PROCEDURE PERFORMED: Robotic bilateral inguinal herniorrhaphy with mesh. WOUND CLASS: Clean. SURGEON: Percy Dallas MD [employer] ANESTHESIA: General endotracheal. INDICATIONS: 33-year-old male with bilateral inguinal hernias. FINDINGS: Bilateral direct inguinal hernias. Small cord lipoma on the left. SPECIMENS: None. DESCRIPTION OF PROCEDURE: The patient was identified and brought t o the operating room, placed supine on the operating room table. After adequate IV sedation and general anesthesia were obtained, the patient was orally intubate d. The abdomen was sterilely prepped an d draped in standard surgical fashion. A surgical timeout was taken to ensure patient identification and the administration of perioperative Ancef 2 g IV. Local anesthetic of 0.25% Marcaine was inject ed in the skin and subcutaneous tissues of the left upper quadrant. A stab incision was created and a 5 mm Optiview trocar was inserted. A pneumoperitoneum was established. In the upper midline, a 12 mm trocar was inserted after injecting local anesthetic. In the right upper quadrant, an 8 mm robotic trocar was inserted similarly. The Optiview 5 mm was exch anged for an 8 mm robotic trocar in the left upper quadrant. The patient was placed in steep Trendelenburg with intraabdominal findings as described above. Bilateral Bard 3DMax meshes were placed in t he abdominal cavity along with 2-0 V-Loc absorbable sutures and a 2-0 Ethibond stitch. The robot was then docked. Dissection began on the right where a peritoneal flap was taken down with electrocaute ry. The preperitoneal space was fully d eveloped until the hernia was encountered. The hernia was reduced with gentle traction and electrocautery. The spermatic cord was skeletonized and no other defe cts were noted. The Bard 3DMax mesh was then positioned to cover all pelvic floor defects and secured to the pubic tubercle with a stitch of 2-0 Ethibond. A second stitch of 2-0 Ethibond was placed in the anterior abdominal wall to prevent mesh torsion. The peritoneal flap was closed with the running 2-0 absorbable V-Loc suture. Attention was then turned to the other side where the exact same proc edure was carried out. All needles were retrieved and the 12 mm trocar was removed. The midline fascia was closed with an 0 Vicryl tie using the Ze- Rober instrument. The remaining trocars were removed and the pneumoperitoneum was al lowed to escape. All incisions were closed with interrupted buried stitches of 4-0 Monocryl. The abdomen was washed and dried and SwiftSet was applied. The spo nge, needle, and instrument counts were correct at the end o f the case. FLUIDS: 1 L of crystalloid solution. ESTIMATED BLOOD LOSS: 10 cc. DRAINS AND PACKS: None. COMPLICATIONS: None. Extracted from:Title: Admission H&P 02/20/2018 [facility] Author: Yuniel Somers MD Date: 02/20/18 Impression and Plan 1. Dizziness, orthostatic hypotension, o vermedication with antihypertensives versus polysubstance abuse Admit to obs / telemetry neuro checks q4h IV fluids overnight check orthostatic vitals hold bp meds for now check ammonia, tsh, serial cardiac enzymes obtain Echo consider further neuroimaging if no improvement in AM 2. History of hypertension; but hypotensive on arrival hold bp meds for now 3. Hypokalemia check mag level replaced in the ED repeat bmp later today 4. Polysubstance abuse, cocaine and marijuana code: full Plan of Care No Data Provided for This Section Social History Social History Date Source Social History TypeResponse 02/20/2018 [facility] gonzalez Substance Abuse Use: Current. Type: Marijuana. Sexual Sexually active: Yes. Employment/School Status: Unemployed. Highest education level: High school. Alcohol Current, Frequency: 1-2 times per week. Smoking Status Never smoker; Exposure to Tobacco Smoke None; Cigarette Smoking Last 365 Days No; Reg Smoking Cessation Counseling No entered on: 08/21/18 Social History TypeResponse 02/20/2018 [facility] Substance Abuse Use: Current. Type: Marijuana. Sexual Sexually active: Yes. Employment/School Status: Unemployed. Highest education level: High school. Alcohol Current, Frequency: 1-2 times per week. Smoking Status Never smoker; Exposure to Tobacco Smoke None; Cigarette Smoking Last 365 Days No; Reg Smoking Cessation Counseling No entered on: 05/03/18 Social History TypeResponse 02/20/2018 [facility] Alcohol Current, Frequency: 1-2 times per week. Employment/School Status: Unemployed. Highest education level: High school. Sexual Sexually active: Yes. Substance Abuse Use: Current. Type: Marijuana. Smoking Status Never smoker; Exposure to Tobacco Smoke None; Cigarette Smoking Last 365 Days No; Reg Smoking Cessation Counseling No entered on: 08/21/18 Family History No Data Provided for This Section Advance Directives No Data Provided for This Section Functional Status No Data Provided for This Section
--- OUTSIDE RECORDS SUMMARY | 2019-11-04 12:00 | XMS REPORT | Summary of Care ---
[...] Details Planned Observations Planned Goals not documented Instructions Name Dates Details Instructions not documented [...] 16-Aug-2019 13:00 Encounter Diagnosis: Problem not documented Appointment; YAMEL BARKER M.D. On: 04-Sep-2019 13:3 0 Encounter Diagnosis: Problem not documented
--- OUTSIDE RECORDS SUMMARY | 2019-11-04 12:00 | XMS REPORT | Continuity of Care Document ---
:1985 Author Organization [facility] t Address [address] [place] [address] Care Team Providers Name Role Phone Navdeep Dallas II Attending Clinician MJ Attending Clinician Unavailable YOLANDA Attending Clinician Unavailable Henrry Hastings Attending Clinician Aaron Ness Attending Clinician JARROD Attending Clinician Unavailable ARNOLD Attending Clinician Unavailable Yariel James Attending Clinician Dave Gonzales Attending Clinician Zechariah Somers Attending Clinician MIHAI Attending Clinician Unavailable Harish Han Attending Clinician SHANON Attending Clinician Unavailable Levon Taylor Attending Clinician Navdeep Dallas II Admitting Clinician Zechariah Somers Admitting Clinician Aaron Ness Admitting Clinician Payers Payer Name Policy Type Policy Number Effective Date Expiration Date S pratik Problems Condition Condition Condition Status Onset Resolution Last Treating Co mments Source Name Details Category Date Date Treatment Clinician Date R10.31 Diagnosis Active 2019-09-27 Mem oria RIGHT 8-05 14:00:00 l LOWER R10.31 00:00: Jovon QUADRANT RIGHT 00 PAIN LOWER QUADRANT PAIN Active 09/20/2019 [facility] RIGHT Diagnosis Active 2019-09-20 Mem oria LOWER 8-05 15:18:00 l QUADRANT RIGHT 00:00: [place] PAIN LOWER 00 QUADRANT PAIN Active 09/20/2019 [facility] FLANK PAIN Diagnosis Active 2019-09-27 Memoria 2- 13:57:00 l FLANK 00:00: [place] PAIN 00 Active 04/07/2019 [facility] ABDOMINAL Diagnosis Active 2018-08-20 Memoria PAIN 08-20 23:43:00 l 00:00: [place] ABDOMINAL 00 PAIN Active 08/20/2018 [facility] BILATERAL Diagnosis Active 2018-08-22 Memoria INGUINAL 08-11 07:46:00 l HERNIA 00:00: Jovon BILATERAL 00 INGUINAL HERNIA Active 08/11/2018 [facility] RT Diagnosis Active 2018-05-06 Mem oria TESTICULAR 3-20 10:29:00 l PAIN RT 00:00: Jovon TESTICULAR 00 PAIN Active 05/04/2018 [facility] REACTION Diagnosis Active 2018-02-20 M emoria 1-05 01:11:00 l REACTION 00:00: Clifford n 00 Active 02/19/2018 [facility] PRE Diagnosis Active 2018-02-21 Mem oria SYNCOPE 1-05 14:08:00 l PRE 00:00: [place] SYNCOPE 00 Active 02/19/2018 [facility] WEAKNESS, Diagnosis Active 2018-02-20 Memoria DIZZINESS, 1-05 01:12:00 l MEDICATION 00:00: Clifford n SIDE EFF WEAKNESS, 00 DIZZINESS, MEDICATION SIDE EFF Active 02/19/2018 [facility] COUGH Diagnosis Active 2017-022018-03-31 Mem oria 2-16 09:23:00 l COUGH 00:00: [place] 00 Active 01/30/2018 [facility] KIDNEY Diagnosis Active 2017-022018-01-10 Mem oria PAIN 03-12 14:49:00 l KIDNEY 00:00: Jovon PAIN 00 Active 01/10/2018 [facility] RIGHT Diagnosis Active 2017-022018-01-14 Mem oria FLANK PAIN 02-22 10:19:00 l RIGHT 00:00: Jovon FLANK PAIN 00 Active 12/23/2017 [facility] R10.9 Diagnosis Active 2017-022018-01-14 Mem oria UNSPECIFIE 02-22 10:30:00 l D ABDOMINA R10.9 00:00: Navya nn UNSPECIFIE 00 D ABDOMINA Active 12/23/2017 [facility] FLANK PAIN Diagnosis Active 2017-022017-11-26 Memoria OR INJURY 0-12 22:48:00 l FLANK 00:00: Jovon PAIN OR 00 INJURY Active 11/26/2017 Alycia Sigala History of History of Problem Resolve [facility] [...] disorder disorder [facility] [place] [facility] Other long Problem 2018-06-16 M emoria term 12:05:06 l (current) Other Clifford n drug mcc therapy (current) drug therapy 06/16/2018 SO[facility] Figueroa Acquired Problem 2018-09-09 Mem oria absence of 12:38:46 l kidney Acquired Clifford n absence of kidney 09/09/2018 Amador Wilson [facility] [place] [facility] Essential Problem 2018-09-09 Me moria (primary) 12:38:46 l hypertensi Clifford n on Essential (primary) hypertensi on 09/09/2018 [place] Jake [facility] [place] [facility] Hypokalemi Problem 2018-09-09 M emoria a 12:38:46 l [place] Hypokalemi a 09/09/2018 [facility] Cocaine Problem 2018-09-09 Mark mirian abuse, 12:38:46 l uncomplica Cocaine Her haynes bernardo abuse, uncomplica bernardo 09/09/2018 [facility] Cannabis Problem 2018-09-09 Mem oria abuse, 12:38:46 l uncomplica Cannabis He rmann bernardo abuse, uncomplica bernardo 09/09/2018 [facility] Allergy Problem 2018-09-09 Mark mirian status to 12:38:46 l sulfonamid Allergy Her haynes es status status to sulfonamid es status 09/09/2018 [place] Jake [facility] [place] [facility] Hypertensi Problem Resolve 2019-09-29 Memoria ve d 22:53:33 l disorder, Jovon systemic Hypertensi arterial ve (disorder) disorder, systemic arterial (disorder) Resolved Problem 09/29/2019 [facility], Anthony H [facility] [place] [facility] Left Problem Active 2019-09-29 Memor ia kidney 22:53:33 l absent Left Jovon (finding) kidney absent (finding) Active Problem 09/29/2019 [facility], [place] [facility] Pain in Problem Active 2019-09-29 Mark mirian testicle 22:53:33 l (finding) Pain in Herm joseline testicle (finding) Active Problem 09/29/2019 [facility] Right Problem Active 2019-09-29 Memor ia flank pain 22:53:33 l (finding) Right Clifford n flank pain (finding) Active Problem 09/29/2019 [facility] H [facility] Right Problem Active 2019-09-29 Memor ia inguinal 22:53:33 l hernia Right Jovon (disorder) inguinal hernia (disorder) Active Problem 09/29/2019 [facility] H [facility] Simple Problem Active 2019-09-29 Memor ia obesity 22:53:33 l (disorder) Simple Herm joseline obesity (disorder) Active Problem 09/29/2019 [facility], Amador Figueroa H [facility] Anxiety Problem Active 2019-09-29 Mark mirian (finding) 22:53:33 l Anxiety Jovon (finding) Active Problem 09/29/2019 Medical Group,[facility] Mixed Problem Active 2019-09-29 Memor ia anxiety 22:53:33 l and Mixed Jovon depressive anxiety disorder and (disorder) depressive disorder (disorder) Active Problem 09/29/2019 [facility] Phobia Problem Active 2019-09-29 Memor ia (finding) 22:53:33 l Phobia Jovon (finding) Active Problem 09/29/2019 [facility] Posttrauma Problem Active 2019-09-29 M emoria tic stress 22:53:33 l disorder [place] (disorder) Posttrauma tic stress disorder (disorder) Active Problem 09/29/2019 [facility] Group,[facility] UNSPECIFIE Diagnosis Active 2018-01-14 Memoria D 10:30:00 l ABDOMINAL [place] PAIN UNSPECIFIE D ABDOMINAL PAIN Active [facility] SYNCOPE Diagnosis Active 2018-02-21 Me moria AND 14:08:00 l COLLAPSE SYNCOPE Navya nn AND COLLAPSE Active [facility] WEAKNESS Diagnosis Active 2018-02-20 M emoria 01:12:00 l WEAKNESS Clifford n Active [facility] DIZZINESS Diagnosis Active 2018-02-20 Memoria AND 01:12:00 l GIDDINESS [place] DIZZINESS AND GIDDINESS Active [facility] UNSP Diagnosis Active 2018-02-20 Mem oria ADVERSE 01:12:00 l EFFECT OF UNSP Jovon DRUG OR ADVERSE MEDICAMEN EFFECT OF DRUG OR MEDICAMEN Active [facility] TESTICULAR Diagnosis Active 2018-05-06 Memoria PAIN, 10:29:00 l UNSPECIFIE Clifford n D TESTICULAR PAIN, UNSPECIFIE D Active [facility] BI Diagnosis Active 2019-09-27 Mem oria INGUINAL 14:00:00 l HERNIA, BI [place] W/O OBST INGUINAL OR HERNIA, GANGRENE W/O OBST OR GANGRENE Active [facility] Orthostati Problem 2018-2018-09-09 2018-09-09 Memoria c 1-11 12:38:46 12:38:46 l hypotensio 05:13: Clifford n n Orthostati 25 c hypotensio n 02/25/2018 09/09/2018 [facility] Bilateral Problem 2018-2018-08-23 2018-08-23 Memoria inguinal 7- 21:03:25 21:03:25 l hernia, 17:00: [place] without Bilateral 00 obstructio inguinal n or hernia, gangrene, without not obstructio specified n or as gangrene, recurrent not specified as recurrent 08/21/2018 08/23/2018 [facility] Encounter Problem 2018-2018-08-19 2018-08-19 Memoria for other 2-15 12:32:03 12:32:03 l administra 05:06: Clifford n tive Encounter 29 examinatio for other ns administra tive examinatio ns 04/01/2018 08/19/2018 [facility] Unspecifie Problem 2017-022018-08-04 2018-08-04 Memoria d 2-06 11:11:48 11:11:48 l abdominal 04:37: Jovon pain Unspecifie 49 d abdominal pain 01/20/2018 08/04/2018 Amador Figueroa [facility] [place] [facility] Right Problem 2017-022018-06-16 2018-06-16 M emoria upper 0-18 12:05:06 12:05:06 l quadrant Right 04:16: Jovon pain upper 21 quadrant pain 12/02/2017 06/16/2018 [place] Dysuria Problem 2017-022018-06-16 2018-06-16 Memoria 0-12 12:05:06 12:05:06 l Dysuria 05:00: [place] 00 11/26/2017 06/16/2018 [place] Allergies, Adverse Reactions, Alerts Allergy Allergy Status Severity Reaction(s) Onset Inactive Treating Comm ents Source Name Type Date Date Clinician Sulfa DA [facility] are [facility] [place] sulfa Allergy Active Univers to drug ity of (finding [place] ) [facility]ici ans sulfa sulfa Active Memoria drugs drugs l Jovon Family History Family Member Diagnosis Comments Start Date Stop Date Source uncle Family history of [facility] [place] schizophrenia Physicians uncle Family history of PTSD [facility] [place] (post-traumatic stress Ph ysicians disorder) Mother Family history of [facility] [place] Anxiety Physicians Social History Social Habit Start Date Stop Date Quantity Comments Source Social History 2018-02-20 2018-02-20 [facility] 08:35:21 08:35:21 Medications Ordered Filled Start Stop Current Ordering Indication Dosage Frequency Signature Comments Components Source Medication Medication Date Date Medication? Clinician (SIG) Name Name Omnipaque 2020-0 No 50 ml, Memori a 300 8-12 Route: PO, l 20:38: Dosing [place] 00 Weight 89.091, kg, ONCE, Start date: 09/27/19 15:38:00 CDT, Stop date: 09/27/19 15:38:00 CDT Omnipaque 2019-0 No 100 ml, Memor ia 300 8-12 Route: IV, l 20:37: Dosing Weight 89.091, kg, ONCE, Start date: 09/27/19 15:37:00 CDT, Stop date: 09/27/19 15:37:00 CDT Prazosin Prazosin Yes SIDHARTA 1 TAKE 1 Univers HCl - 1 MG HCl - 1 MG 6-19 MJ M.D. CAPSULE ity of Oral Oral 00:00: BEDTIME [place] Capsule Capsule 00 Physici ans Omnipaque 0 No Notes: Memori a 300 2-22 (Same l 03:29: as:Omnipaq [place] 00 ue 300). WASTE: F/P - Black; E - Municipal Trash Bin Morphine 2019- Yes Notes: Memoria 2-22 (Same l 02:30: as:MORPhin e Sulfate) Zofran 2019-0 Yes Notes: Memoria 2-22 (Same as: l 02:21: Zofran ODT) Ketorolac 2019-0 No 4 days Memor ia 2-22 l 02:21: MEDICATION WASTE Product Size: 30 mg Product Wasted: ___ mg traZODone traZODone 2018-02 Yes SIDHARTA TAKE 1 TO Univers HCl - 50 MG HCl - 50 MG 0-22 MJ M.D. 2 TABLETS ity of Oral Tablet Oral Tablet 00:00: AT BEDTIME [place] 00 Physici ans hydrOXYzine hydrOXYzine 2018-02 Yes SIDHARTA 1 Q0.5D TAKE 1 Univers HCl - 50 MG HCl - 50 MG 0-22 MJ M.D. TABLET ity of Oral Tablet Oral Tablet 00:00: TWICE 00 DAILY Physici NEEDED. ans busPIRone busPIRone Yes SIDHARTA 1 Q0.5D TAKE ONE Univers HCl - 10 MG HCl - 10 MG 8-12 MJ M.D. TABLET BY ity of Oral Tablet Oral Tablet 00:00: MOUTH 00 TWICE A Physici DAY ans Latuda 40 Latuda 40 2018- Yes SIDHARTA TAKE 1 Univers MG Oral MG Oral 8-12 MJ M.D. TABLET BY ity of Tablet Tablet 00:00: MOUTH [place] 00 EVERY DAY Physici ans Ketorolac 0 No 4 days Memor ia 08-22 l 23:00: MEDICATION WASTE Product Size: 30 mg Product Wasted: ___ mg Acetaminoph No 1 tab, Mark mirian en 300 MG / 08-22 Route: PO, l Codeine 19:25: Dosing [place] Weight 30 MG Oral 90.909, Tablet kg, ONCE, [Tylenol PRN Pain with Score 4-6, Codeine #3] Start date: 08/22/18 14:25:00 CDT Tramadol No 50 mg, Memoria 08-22 Route: PO, l 19:24: Drug form: Jovon 00 TAB, ONCE, Dosing Weight 90.909, kg, PRN Pain Score 1-3, Start date: 08/22/18 14:24:00 CDT 72 HR 2018- Yes Notes: Memoria Scopolamine 08-22 Change l 0.0139 18:55: patch [place] MG/HR 00 every 72 Transdermal hours Patch (Same as: Transderm- Scop) Promethazin No 6.25 mg, Me moria e 08-22 Route: l 18:55: IVPB, 00 ONCE, Dosing Weight 90.909, kg, PRN Nausea & Vomiting, Start date: 08/22/18 13:55:00 CDT Ondansetron No 4 mg, Memor ia 08-22 Route: l 18:55: IVP, ONCE, Dosing Weight 90.909, kg, PRN Nausea & Vomiting, Start date: 08/22/18 13:55:00 CDT Naloxone 2019-0 No Notes: Memoria 7- Same as l 18:55: Narcan Meperidine No Notes: Memor ia - (Same as: l 18:55: Demerol) "Use Precaution in Elderly, Seizure disorders, and Renal impairment " Diphenhydra No Notes: Mark mirian mine 08-22 (Same as: l 18:55: Benadryl) Albuterol No Notes: SEE Me moria 0.83 MG/ML 08-22 RT l Inhalant 18:55: DOCUMENTAT Her haynes Solution 00 ION (Same as: Proventil) Flumazenil No Notes: Memor ia 08-22 (Same as: l 18:55: Romazicon) Fentanyl No Notes: Memoria 08-22 (Same as: l 18:55: Sublimaze) Preservat ramona free. Hydromorpho No Notes: Mark mirian ne 08-22 Same as l 18:55: Dilaudid Oxycodone No Notes: Memori a 08-22 (Same as: l 18:55: Roxicodone ) Acetaminoph No Notes: Mark mirian en 08-22 Infuse l 18:55: over 15 minutes Do not exceed 4gm/day of acetaminop hen MEDICATION WASTE Product Size: 1000 mg Product Wasted: ___ mg Hydralazine No Notes: Mark mirian 08-22 (Same as: l 18:55: Apresoline ) Push over 5 minutes ondansetron No Route: IV, Memoria (ANES) 08-22 Drug form: l 17:54: INJ, ONCE, Stop date: 08/22/18 12:54:00 CDT glycopyrrol No Route: IV, Memoria ate (ANES) 08-22 Drug form: l 17:54: INJ, ONCE, Stop date: 08/22/18 12:54:00 CDT neostigmine No Route: IV, Memoria (ANES) 08-22 Drug form: l 17:54: INJ, ONCE, Stop date: 08/22/18 12:54:00 CDT tramadol Yes 50 mg, PO, Mem oria hydrochlori 08 Q4H, PRN l de 50 MG 17:50: Pain Score Her haynes Oral Tablet 00 1-3, X 3 day, # 12 tab, 0 Refill(s) Docusate Yes 100 mg = 1 Mem oria Sodium 100 -08 cap, PO, l MG Oral 17:50: BID, PRN Clifford n Capsule 00 Constipati [Colace] on, # 20 cap, 0 Refill(s), Pharmacy: [facility] [id number] Acetaminoph Yes 1 tab, PO, Memoria en 300 MG / 08-22 Daily, PRN l Codeine 17:50: as needed Navya nn Phosphate 00 for pain, 30 MG Oral X 3 day, # Tablet 10 tab, 0 Refill(s) Docusate No Notes: Memoria Sodium 100 08-22 (Same as: l MG Oral 17:45: Colace) [place] Capsule 00 (Do Not [Colace] Crush) tramadol No Notes: Not Mem oria hydrochlori 08-22 to exceed l de 50 MG 17:45: 400mg/day. Her haynes Oral Tablet 00 (Same As: Ultram) Morphine No Notes: Memoria 08-22 (Same l 17:45: as:MORPhin Jovon 00 e Sulfate) acetaminoph No Notes: Do M emoria en-codeine 08-22 not exceed l #3 17:45: 4gm/day of [place] acetaminop hen. (Same as: Tylenol with Codeine # 3) ketAMINE No Route: IV, Mem oria (ANES) 08-22 Drug form: l 16:40: INJ, ONCE, [place] Stop date: 08/22/18 11:40:00 CDT ceFAZolin No Route: IV, Me moria (ANES) 08-22 Drug form: l 16:40: INJ, ONCE, [place] Stop date: 08/22/18 11:40:00 CDT dexamethaso No Route: IV, Memoria ne (ANES) 08-22 Drug form: l 16:40: INJ, ONCE, Jovon 00 Stop date: 08/22/18 11:40:00 CDT fentaNYL 2018- No Route: IV, Mem oria (ANES) 08-22 Drug form: l 16:40: INJ, ONCE, [place] Stop date: 08/22/18 11:40:00 CDT propofol No Route: IV, Mem oria (ANES) 08-22 Drug form: l 16:35: INJ, ONCE, [place] 00 Stop date: 08/22/18 11:35:00 CDT rocuronium No Route: IV, Amador emoria (ANES) 08-22 Drug form: l 16:35: INJ, ONCE, Stop date: 08/22/18 11:35:00 CDT lidocaine No Route: IV, Me moria (ANES) 08-22 Drug form: l 16:35: INJ, ONCE, Stop date: 08/22/18 11:35:00 CDT midazolam No Route: IV, Me moria (ANES) 08-22 Drug form: l 16:35: SOLN, [place] 00 ONCE, Stop date: 08/22/18 11:35:00 CDT Lactated No Route: IV, Mem oria Ringers 08-22 Total l Injection 15:21: Volume: Navya nn IV (ANES) 00 1,000, 1000 mL Start date: 08/22/18 10:21:00 CDT, Stop date: 08/22/18 11:21:00 CDT Zofran No Notes: Memoria 08-21 (Same as: l 03:58: Zofran [place] 00 ODT) Acetaminoph No Notes: Mark mirian en 325 MG / 08-21 (Same as: l Hydrocodone 03:57: Topsham Navya nn Bitartrate 00 325/5) Do 5 MG Oral not exceed Tablet 4gm/day of acetaminop hen. Sodium No 1,000 mL, Memori a Chloride 08-21 1000 l 0.9% 03:48: ml/hr, [place] (Bolus) IV 00 Infuse Over: 1 hr, Route: IV, 1,000, Drug form: INJ, ONCE, Priority: STAT, Dosing Weight 90.909 kg, Start date: 08/20/18 22:48:00 CDT, Stop date: 08/20/18 22:48:00 CDT, 0 Zoloft Yes 50 mg, PO, Memor ia 7-05 Daily, 0 l 17:08: Refill(s) Lisinopril Yes 5 mg, PO, Me moria 7-05 Daily, 0 l 17:07: Refill(s) acetaminoph No 1 tab, PO, Memoria en-codeine 7-05 Daily, PRN l #3 17:07: as needed for pain, 0 Refill(s) Naproxen 0 Yes PO, Daily, Mem oria 7-05 PRN as l 17:07: needed for pain, 0 Refill(s) Xanax Yes 0.5 mg, Memoria 7-05 PO, BID, 0 l 17:07: Refill(s) Amlodipine Yes 5 mg, PO, Me moria 7-05 Daily, 0 l 17:07: Refill(s) naproxen Yes 500 mg = 1 Mem oria 500 mg oral 3-19 tab, PO, l tablet 14:38: BID, X 14 Clifford n 00 day, # 28 tab, 0 Refill(s), Pharmacy: [facility] Famotidine No Notes: Memor ia 20 MG Oral 02-21 (Same as: l Tablet 03:00: Pepcid) [place] [Pepcid] 00 Aspirin No Notes: Do Memor ia 02-20 not crush l 19:00: or chew. (Same As: Ecotrin) Trazodone No Notes: Memori a Hydrochlori 02-20 (Same As: l de 50 MG 16:34: Desyrel) Navya nn Oral Tablet 00 Saline No Notes: Memoria Flush 0.9% 02-20 (Same as: l 15:00: BD Jovon Posiflush) Amlodipine No 20 mg, PO, M emoria 1-06 Daily, 0 l 09:18: Refill(s) [place] 00 Sodium No 1,000 mL, Memori a Chloride 02-20 Rate: 125 l 0.9% IV 07:55: ml/hr, Jovon 1,000 mL 00 Infuse over: 8 hr, Route: IV, Dosing Weight 106.818 kg, Total Volume: 1,000, Start date: 02/20/18 1:55:00 CONTINGENTS SUPERVISOR, Duration: 30 day, Stop date: 03/22/18 1:54:00 CONTINGENTS SUPERVISOR, 2.28, m2 Saline No Notes: Memoria Flush 0.9% 02-20 (Same as: l 07:55: BD [place] 00 Posiflush) Antivert No Notes: Memoria 1-06 (Same as: l 07:05: Antivert) Potassium No 10 mEq, Memor ia Chloride 02-20 Route: l 06:30: IVPB, [place] ONCE, Dosing Weight 106.818, kg, Start date: 02/20/18 0:30:00 CONTINGENTS SUPERVISOR, Stop date: 02/20/18 0:30:00 CONTINGENTS SUPERVISOR Ondansetron No Notes: Mark mirian 06 (Same as: l 05:06: Zofran) Jovon 00 MEDICATION WASTE Product Size: 4 mg Product Wasted: ___ mg Sodium No 1,000 mL, Memori a Chloride 02-20 Infuse l 0.9% 04:56: Over: 1 Jovon (Bolus) IV 00 hr, Route: IV, ONCE, Priority: STAT, Dosing Weight 106.818 kg, Start date: 02/19/18 22:56:00 CONTINGENTS SUPERVISOR, Stop date: 02/19/18 22:56:00 CONTINGENTS SUPERVISOR Motrin 2017-02 No Notes: Memoria 2-16 (Same as: l 21:02: Motrin) [place] "Do Not Crush" Take with food. Acetaminoph 2017-02 No 1 - 2 tab, Memoria en 300 MG / 1-26 PO, Q6H, l Codeine 22:56: PRN Pain, Navya nn Phosphate 00 X 4 day, # 30 MG Oral 12 tab, 0 Tablet Refill(s) [Tylenol with Codeine #3] Zofran 2017-02 No Notes: Memoria 03-12 (Same as: l 18:06: Zofran) [place] 00 MEDICATION WASTE Product Size: 4 mg Product Wasted: ___ mg Morphine 2017-02 No Notes: Memoria 03-12 (Same l 18:06: as:MORPhin Jovon 00 e Sulfate) diazePAM 5 diazePAM 5 2017-02 Yes ALPESH [...] sici Tablet Tablet NEEDED FOR ans PAIN. promethazin 2017-02 Yes 6.25 mg = M emoria e 6.25 mg/5 0-13 5 ml, PO, l mL oral 04:42: Q6H, PRN Clifford n syrup 00 Nausea & Vomiting, # 120 ml, 0 Refill(s) Tylenol 2017-02 No 10 ml, PO, Mark mirian with 0-13 Q6H, PRN l Codeine 120 04:40: Pain, X 7 H ermann mg-12 mg/5 00 day, # 240 mL oral mL, 0 liquid Refill(s) Zofran 2017-02 No Notes: Memoria 0-13 (Same as: l 04:32: Zofran) [place] 00 MEDICATION WASTE Product Size: 4 mg Product Wasted: ___ mg Ketorolac 2017-02 No 4 days Memor ia 0-13 l 04:32: MEDICATION WASTE Product Size: 30 mg Product Wasted: ___ mg Acetaminoph 2017-02 No Notes: Mark mirian en 325 MG / 0-13 (Same as: l Hydrocodone 04:16: Topsham Navya nn Bitartrate 00 325/5) Do 5 MG Oral not exceed Tablet 4gm/day of [Topsham acetaminop 5/325] hen. Phenergan 2017-02 No 25 mg = 1 Mem oria 25 mg oral 0-13 tab, PO, l tablet 04:15: Q6H, PRN [place] 00 Nausea, # 15 tab, 0 Refill(s) Acetaminoph 2017-02 No 1 tab, PO, Memoria en 300 MG / 0-13 Q6H, PRN l Codeine 04:14: Pain, X 3 Navya nn Phosphate 00 day, # 12 30 MG Oral tab, 0 Tablet Refill(s) [Tylenol with Codeine #3] Ketorolac 2017-02 No 4 days Memor ia 0-13 l 03:46: MEDICATION Jovon 00 WASTE Product Size: 30 mg Product Wasted: ___ mg normal 2017-02 No 1,000 mL, Memori a saline 0.9% 0-13 Rate: l IV 1,000 mL 01:38: 1,000 Navya nn 00 ml/hr, Infuse over: 1 hr, Route: IV, Dosing Weight 84.9 kg, Total Volume: 1,000, Priority: Within 24 hours, Start date: 11/26/17 20:38:00 CDT, Duration: 1 doses or times, Stop date: 11/26/17 21:37:00 CDT, 2.01, m2 Tylenol No 15 ml, PO, Mark mirian with 9-23 Q6H, PRN l Codeine 120 02:51: Pain, X 3 H ermann mg-12 mg/5 00 day, # 120 mL oral mL, 0 liquid Refill(s) Ondansetron No 4 mg = 5 Me moria 0.8 MG/ML 9-23 mL, PO, l Oral 02:50: TID, PRN [place] Solution 00 Nausea & [Zofran] Vomiting, # 50 mL, 0 Refill(s) Acetaminoph No Notes: Mark mirian en 325 MG / 9-23 (Same as: l Hydrocodone 02:27: Topsham Navya nn Bitartrate 00 325/5) Do 5 MG Oral not exceed Tablet 4gm/day of acetaminop hen. Saline No Notes: Memoria Flush 0.9% 9-22 (Same as: l 22:50: BD [place] 00 Posiflush) Sodium No 1,000 mL, Memori a Chloride 9-22 1000 l 0.9% 22:50: ml/hr, Jovon (Bolus) IV 00 Infuse Over: 1 hr, Route: IV, 1,000, Drug form: INJ, ONCE, Priority: STAT, Dosing Weight 81.818 kg, Start date: 11/06/17 17:50:00 CDT, Stop date: 11/06/17 17:50:00 CDT Lisinopril Lisinopril Yes 1 tablet Univers 5 [...] Name Observation Time Observation Value Comments Source Systolic (mm Hg) 2019-04-07 [facility] rmann 23:18:00 Diastolic (mm Hg) 2019-04-07 [facility] ermann 23:18:00 [facility] Respitory Rate 2019-04-07 [facility] joseline 23:18:00 Temperature Oral 2019-04-07 98.4 F [facility] rmann (F) 23:18:00 Height 2019-04-07 165[facility]1 [facility]:18[facility]00 BMI Calculated 2019-04-07 [facility] joseline 23:18:00 Weight 2019-04-07 [facility] BP Systolic 2019-03-24 113 mm[Hg] Location: On license of [facility] 11:08:00 Position: [place] Physician s Sitting BP Diastolic 2019-03-24 74 mm[Hg] Location: On license of [facility] 11:08:00 Position: [place] Physician s Sitting Height 2019-03-24 167.6 cm [facility] 11:08:00 [place] Physician s Weight 2019-03-24 195.125 [lb_av] University o f 11:08:00 [place] Physician s Body Mass Index 2019-03-24 31.51 kg/m2 University o f Calculated 11:08:00 [place] Physician s Temperature 2019-03-24 98.6 [degF] Method: Oral University of 11:08:00 [place] Physician s Heart Rate 2019-03-24 80 /min Location: [facility] [place] [facility] 11:08:00 Brachial [place] Physician s Artery; Quality: Normal Respiration Rate 2019-03-24 18 /min Quality: Normal Universi ty of 11:08:00 [place] Physician s O2 SAT 2019-03-24 97 % Source: [facility] :08:00 [place] Physician s BP Systolic 2019-02-13 111 mm[Hg] Location: On license of [facility] : Position: [place] Physician s Sitting BP Diastolic 2019-02-13 75 mm[Hg] Location: On license of [facility] :00 Position: [place] Physician s Sitting Height 2019-02-13 167.6 cm [facility] :27:00 [place] Physician s Weight 2019-02-13 193.25 [lb_av] [facility] :27:00 [place] Physician s Body Mass Index 2019-02-13 31.21 kg/m2 [facility] Calculated ::00 [place] Physician s Temperature 2019-02-13 98.3 [degF] Method: Oral [facility] 27:00 [place] Physician s Heart Rate 2019-02-13 65 /min Location: [facility] [place] [facility] :00 Brachial [place] Physician s Artery; Quality: Normal Respiration Rate 2019-02-13 18 /min Quality: Normal Universi ty of : [place] Physician s O2 SAT 2019-02-13 98 % Source: [facility] : [place] Physician s BP Systolic 2018-12-06 116 mm[Hg] Location: On license of [facility] 36:00 Position: [place] [facility] Sitting BP Diastolic 2018-12-06 78 mm[Hg] Location: On license of [facility] :36:00 Position: [place] [facility] Sitting Height 2018-12-06 66 [in_us] [facility] :36:00 [place] [facility] Weight 2018-12-06 194.8 [lb_av] [facility] :36:00 [place] [facility] Body Mass Index 2018-12-06 31.44 kg/m2 University o f Calculated 09:36:00 [place] [facility] s Temperature 2018-12-06 97.7 [degF] Method: Oral University of 09:36:00 [place] [facility] Heart Rate 2018-12-06 68 /min Location: R [facility] of 09:36:00 Brachial [place] [facility] Artery; Quality: Normal Respiration Rate 2018-12-06 18 /min Quality: Normal Universi ty of 09:36:00 [place] [facility] O2 SAT 2018-12-06 97 % Source: RA [facility] of 09:36:00 [place] [facility] BP Systolic 2018-09-26 112 mm[Hg] Location: On license of [facility] 13:45:00 Position: [place] Physician s Sitting BP Diastolic 2018-09-26 74 mm[Hg] Location: On license of [facility] 13:45:00 Position: [place] Physician s Sitting Height 2018-09-26 66 [in_us] University of 13:45:00 [place] [facility] Weight 2018-09-26 195.5 [lb_av] University of 13:45:00 [place] [facility] Body Mass Index 2018-09-26 31.55 kg/m2 University o f Calculated 13:45:00 [place] [facility] Respiration Rate 2018-09-26 20 /min Quality: Normal Universi ty of 13:45:00 [place] [facility] Heart Rate 2018-09-26 82 /min Quality: [facility] 13:45:00 Regular [place] [facility]ician s Temperature 2018-09-26 99 [degF] Method: Oral University of 13:45:00 [place] [facility] BP Systolic 2018-09-22 128 mm[Hg] Location: [facility] of 14:02:00 Position: [place] Physician s Sitting BP Diastolic 2018-09-22 86 mm[Hg] Location: [facility]; [facility] of 14:02:00 Position: [place] Physician s Sitting Height 2018-09-22 66 [in_us] University of 14:02:00 [place] [facility] Weight 2018-09-22 197.4 [lb_av] University of 14:02:00 [place] [facility] Body Mass Index 2018-09-22 31.86 kg/m2 University o f Calculated 14:02:00 [place] [facility] Temperature 2018-09-22 98.5 [degF] Method: Oral [facility] 14:02:00 [place] [facility] Heart Rate 2018-09-22 83 /min Location: L University of 14:02:00 Brachial [place] [facility] Artery; Quality: Normal Respiration Rate 2018-09-22 18 /min Quality: Normal Universi ty of 14:02:00 [place] [facility] O2 SAT 2018-09-22 98 % Source: [facility] of 14:02:00 [place] [facility] Systolic (mm Hg) 2018-08-22 [facility] 20:00:00 Diastolic (mm Hg) 2018-08-22 [facility] 20:00:00 Respitory Rate 2018-08-22 [facility] 20:00:00 Respitory Rate 2018-08-22 [facility] 19:45:00 Systolic (mm Hg) 2018-08-22 [facility] 19:45:00 Diastolic (mm Hg) 2018-08-22 [facility] 19:45:00 Systolic (mm Hg) 2018-08-22 [facility] 19:30:00 Diastolic (mm Hg) 2018-08-22 [facility] 19:30:00 Respitory Rate 2018-08-22 [facility] 19:30:00 Heart Rate 2018-08-22 [facility] 13:18:00 Respitory Rate 2018-08-21 [facility] 05:39:00 Systolic (mm Hg) 2018-08-21 [facility] 05:39:00 Diastolic (mm Hg) 2018-08-21 [facility] 05:39:00 Heart Rate 2018-08-21 [facility] 05:39:00 Temperature Oral 2018-08-21 98.1 F [facility] (F) 05:39:00 Respitory Rate 2018-08-21 [facility] 05:08:00 Heart Rate 2018-08-21 [facility] 05:08:00 Temperature Oral 2018-08-21 98.2 F [facility] (F) 05:08:00 Systolic (mm Hg) 2018-08-21 [facility] 05:08:00 Diastolic (mm Hg) 2018-08-21 [facility] 05:08:00 BMI Calculated 2018-08-21 [facility] 03:37:00 Temperature Oral 2018-08-21 98.4 F [facility] (F) 03:37:00 Height 2018-08-21 165.1 cm [facility] 03:37:00 Weight 2018-08-21 [facility] 03:37:00 Systolic (mm Hg) 2018-08-21 [facility] 03:37:00 Diastolic (mm Hg) 2018-08-21 [facility] 03:37:00 Respitory Rate 2018-08-21 [facility] 03:37:00 Heart Rate 2018-08-21 [facility] 03:37:00 Heart Rate 2018-08-19 [facility] 17:00:00 BMI Calculated 2018-08-19 [facility] 15:36:00 Weight 2018-08-19 [facility] 15:36:00 Height 2018-08-19 162.56 cm [facility] 15:36:00 Height 2018-05-03 165.1 cm [facility] 14:30:00 BMI Calculated 2018-05-03 [facility] 14:30:00 Weight 2018-05-03 [facility] 14:30:00 Heart Rate 2018-05-03 [facility] 14:30:00 Systolic (mm Hg) 2018-05-03 [facility] 14:30:00 Diastolic (mm Hg) 2018-05-03 [facility] 14:30:00 Respitory Rate 2018-02-20 [facility] 21:38:00 Systolic (mm Hg) 2018-02-20 [facility] 21:38:00 Diastolic (mm Hg) 2018-02-20 [facility] 21:38:00 Heart Rate 2018-02-20 [facility] 21:38:00 Temperature Oral 2018-02-20 98.0 F [facility] (F) 21:38:00 Temperature Oral 2018-02-20 98.0 F [facility] (F) 17:45:00 Respitory Rate 2018-02-20 [facility] 17:45:00 Heart Rate 2018-02-20 [facility] 17:45:00 Systolic (mm Hg) 2018-02-20 [facility] 17:45:00 Diastolic (mm Hg) 2018-02-20 [facility] 17:45:00 Respitory Rate 2018-02-20 [facility] 13:57:00 Temperature Oral 2018-02-20 97.6 F [facility] (F) 13:57:00 Systolic (mm Hg) 2018-02-20 [facility] 13:57:00 Diastolic (mm Hg) 2018-02-20 [facility] 13:57:00 Weight 2018-02-20 [facility] 08:36:00 Heart Rate 2018-02-20 [facility] 05:00:00 Weight 2018-02-20 [facility] 04:44:00 BMI Calculated 2018-02-20 [facility] 04:44:00 Height 2018-02-20 170.18 cm [facility] 04:44:00 Height 2018-01-30 165.1 cm [facility] 20:55:00 Weight 2018-01-30 [facility] 20:55:00 BMI Calculated 2018-01-30 [facility] 20:55:00 Temperature Oral 2018-01-30 98.8 F [facility] (F) 20:55:00 Respitory Rate 2018-01-30 [facility] 20:55:00 Heart Rate 2018-01-30 [facility] 20:55:00 Systolic (mm Hg) 2018-01-30 [facility] 20:55:00 Diastolic (mm Hg) 2018-01-30 [facility] 20:55:00 Heart Rate 2018-01-10 [facility] 23:06:00 Respitory Rate 2018-01-10 [facility] 23:06:00 Systolic (mm Hg) 2018-01-10 [facility] 23:06:00 Diastolic (mm Hg) 2018-01-10 [facility] 23:06:00 Temperature Oral 2018-01-10 98.1 F [facility] (F) 23:06:00 Weight 2018-01-10 [facility] 18:05:00 Heart Rate 2018-01-10 [facility] 18:05:00 Systolic (mm Hg) 2018-01-10 [facility] 18:05:00 Diastolic (mm Hg) 2018-01-10 [facility] 18:05:00 Temperature Oral 2018-01-10 98.1 F [facility] (F) 18:05:00 Respitory Rate 2018-01-10 [facility] 18:05:00 Weight 2017-12-08 [facility] 19:50:00 Height 2017-12-08 167.64 cm [facility] 19:50:00 BMI Calculated 2017-12-08 [facility] 19:50:00 Respitory Rate 2017-12-08 [facility] 19:50:00 Heart Rate 2017-12-08 [facility] 19:50:00 Systolic (mm Hg) 2017-12-08 [facility] 19:50:00 Diastolic (mm Hg) 2017-12-08 [facility] 19:50:00 BP Systolic 2017-12-07 134 mm[Hg] [facility] 15:55:00 [place] [facility] BP Diastolic 2017-12-07 82 mm[Hg] [facility] 15:55:00 [place] [facility] Height 2017-12-07 66 [in_us] [facility] 15:55:00 [place] [facility] Weight 2017-12-07 187 [lb_av] [facility] 15:55:00 [place] [facility] Body Mass Index 2017-12-07 30.18 kg/m2 University o f Calculated 15:55:00 [place] [facility] Heart Rate 2017-12-07 79 /min [facility] 15:55:00 [place] [facility] Systolic (mm Hg) 2017-11-27 [facility] 04:47:00 Diastolic (mm Hg) 2017-11-27 [facility] 04:47:00 Respitory Rate 2017-11-27 [facility] 04:47:00 Heart Rate 2017-11-27 [facility] 04:47:00 Temperature Oral 2017-11-27 98.3 F [facility] (F) 04:47:00 Height 2017-11-27 167.64 cm [facility] 01:25:00 BMI Calculated 2017-11-27 [facility] 01:25:00 Weight 2017-11-27 [facility] 01:25:00 Temperature Oral 2017-11-27 98.1 F [facility] (F) 01:25:00 Heart Rate 2017-11-27 [facility] 01:25:00 Respitory Rate 2017-11-27 [facility] 01:25:00 Systolic (mm Hg) 2017-11-27 [facility] 01:25:00 Diastolic (mm Hg) 2017-11-27 [facility] 01:25:00 Respitory Rate 2017-11-07 [facility] 02:40:00 Heart Rate 2017-11-07 [facility] 02:40:00 Systolic (mm Hg) 2017-11-07 [facility] 02:40:00 Diastolic (mm Hg) 2017-11-07 [facility] 02:40:00 Temperature Oral 2017-11-07 98.9 F [facility] (F) 02:40:00 Respitory Rate 2017-11-06 [facility] 22:44:00 Temperature Oral 2017-11-06 98.6 F Alycia Tracey rmann (F) 22:44:00 Heart Rate 2017-11-06 [facility] 22:44:00 Systolic (mm Hg) 2017-11-06 [facility] 22:44:00 Diastolic (mm Hg) 2017-11-06 [facility] 22:44:00 Weight 2017-11-06 Alycia Zaldivaran n 22:44:00 Procedures Procedure Date / Time Performing Clinician Source Performed [U] XRAY SPINE 2017-12-06 00:00:00 [facility] [place] LUMBOSACRAL MIN 4 VWS Physicians [id number] History of Kidney [facility] surgery Physicians History of Hernia [facility] Repair Physicians Nephrectomy [facility] Encounters Start End Encounter Admission Attending Care Care Encounter Source Date/Time Date/Time Type Type Clinicians Facility Department ID 2019-09-27 2019-09-27 Outpatient Burt, MHGHR MHR [id number] 14:00:00 23:59:00 Percy Sethi 2019-09-27 2019-09-27 Outpatient MHNW ABELINO [id number] [id number] 14:00:00 14:00:00 2019-09-04 2019-09-04 Appointmen ABDULAZIZ BARKER [facility] [id number] Univers 13:30:00 13:30:00 t; YAMEL BARKER ity of [place], M.D. [place] M.D. Physici ans 2019-08-16 2019-08-16 Appointmen ABDULAZIZ GUERRERO [facility] [id number] Univers 13:00:00 13:00:00 t; [facility] 2019-08-04 2019-08-04 Appointmen ABDULAZIZ BARKER [facility] [id number] Univers 13:30:00 13:30:00 t; YAMEL BARKER ity of [place], M.D. [place] M.D. Physici ans 2019-06-02 2019-06-02 Appointmen ABDULAZIZ BARKER [facility] [id number] Univers 15:00:00 15:00:00 t; YAMEL BARKER lty - ity of [place], M.D. [facility] [place] M.D. Physici ans 2019-04-07 2019-04-07 [facility] [id number] 17:15:00 21:31:00 Ash Sales 2019-04-07 2019-04-07 [facility] [id number] 17:15:00 17:15:00 2019-03-24 2019-03-24 Appointmen ABDULAZIZ BARKER [facility] [id number] Univers 15:00:00 15:00:00 t; YAMEL BARKER lty - ity of Michael MONTESINOS [place] [facility] Physici ans 2019-03-01 2019-03-01 Appointmen ABDULAZIZ GUERRERO [id number] Univers 11:30:00 11:30:00 t; [facility] 2019-02-13 2019-02-13 Appointmen ABDULAZIZ BARKER [facility] [id number] Univers 09:30:00 09:30:00 t; YAMEL BARKER lty - ity of Michael MONTESINOS M.D. Physici ans 2018-12-06 2018-12-06 Appointmen ABDULAZIZ BARKER [facility] [id number] Univers 09:30:00 09:30:00 t; YAMEL BARKER lty - ity Michael Wilde [place] Michael Physici ans 2018-11-11 2018-11-11 Appointmen ABDULAZIZ BARKER UTP [id number] Univers 10:30:00 10:30:00 t; YAMEL BARKER ity of Michael MONTESINOS M.D. Physici ans 2018-11-08 2018-11-08 Appointmen ABDULAZIZ BARKER [facility] [id number] Univers 15:30:00 15:30:00 t; YAMEL BARKER lty - ity of Michael MONTESINOS M.D. Physici ans 2018-11-01 2018-11-01 Appointmen ABDULAZIZ BARKER UTP [id number] Univers 15:30:00 15:30:00 t; MJ, SIDHARNellie HOPKINS M.D. [place] M.D. Physici ans 2018-10-19 2018-10-19 Appointmen [facility]OL[facility]DA [facility] [id number] Univers 08:30:00 08:30:00 t; ZITA GUERRERO ity of NOELLE [facility] Physici ans 2018-09-26 2018-09-26 Appointmen MJ [facility] Multispecia [id number] Univers 14:00:00 14:00:00 t; YAMEL BARKER lty - ity of [place], M.D. [facility] [place] M.D. Physici ans 2018-09-23 2018-09-23 Outpatient Grover [facility] [id number] 16:30:00 16:30:00 John Walker 2018-09-22 2018-09-22 Appointmen JARROD [facility] Multispecia [id number] Univers 14:00:00 14:00:00 t; jacklyn GOODEN M.D. [facility] [place] ELIZABETH, Physi ci M.D. ans 2018-08-29 2018-08-29 Appointjose cruz BARRETT [facility] Multispecia [id number] Univers 16:00:00 16:00:00 t; Michael RECINOS [facility] [place] NOEMI, Physici M.D. [facility] 2018-08-22 2018-08-22 Outpatient Burt, MHR MHGHR [id number] 07:25:00 16:24:00 Percy Sethi 2018-08-22 2018-08-22 Outpatient MHNW ABELINO [id number] MHNW 07:25:00 07:25:00 2018-08-20 2018-08-21 Outpatient Tao James MHGHR MHGHR [id number] 22:35:45 01:34:00 Yariel 09 2018-08-20 2018-08-20 Emergency E MHNW MHNW [id number] MHNW 22:35:00 22:35:00 2018-08-11 2018-08-11 Outpatient Grover [facility] [id number] 11:00:00 11:00:00 John Walker 2018-06-22 2018-06-22 Outpatient Christian, MHMG MHMG [id number] 15:30:00 15:30:00 Lina Dave 2018-06-14 2018-06-14 Outpatient Grover, MHMG MHMG [id number] 10:15:00 10:15:00 John Aaron 2018-05-05 2018-05-05 Outpatient Grover, MHGHR MHGHR [id number] 07:23:00 23:59:00 John Aaron 2018-05-03 2018-05-03 Outpatient Grover, MHMG MHMG [id number] 09:15:00 23:59:59 John Aaron 2018-02-19 2018-02-20 Outpatient Yonis, MHGHR MHGHR [id number] 22:36:00 16:51:00 Yuniel Bridgett Apple 2018-02-02 2018-02-02 AppointABDULAZIZ Eden [facility] [id number] Univers 09:00:00 09:00:00 t; VINCENT HOLM M.D. ity of HAJAR, [place] M.D. Physici ans 2018-01-30 2018-01-30 Outpatient Emely, MHGHR MHGHR [id number] 14:45:00 19:03:00 Wilfredo Moreira 2018-01-14 2018-01-14 Outpatient Grover, MHGHR MHGHR [id number] 10:21:00 23:59:00 John Aaron 2018-01-10 2018-01-10 Outpatient Tao James MHGHR MHGHR [id number] 11:54:00 17:08:00 K 2017-12-10 2017-12-16 Outpatient Grover, MHGHR MHGHR [id number] 13:12:44 14:00:00 John Aaron 2017-12-08 2017-12-08 Outpatient Grover, MHMG MHMG [id number] 15:00:00 23:59:59 John Aaron 2017-12-07 2017-12-07 AppointABDULAZIZ [facility] [id number] Univers 15:30:00 15:30:00 t; Michael PEREZ [place] KEVIN, Physici M.D. ans 2017-12-03 2017-12-03 Appointmen ABDULAZIZ CLAUDIO [facility] [id number] Univers 09:15:00 09:15:00 t; Michael PEREZ y of Kobi CLAUDIO Physici M.D. ans 2017-11-26 2017-11-27 Outpatient Claudia, [address] [id number] 20:17:00 00:09:00 Lavelle P 01 2017-11-06 2017-11-06 Outpatient BECKY Taylor [facility] [id number] 17:29:00 22:24:00 Lavelle P 00 Results Test Description Test Time Test Comments Results Result Sourc e Comments CHEM PANEL 2019-09-16 0.9 [facility] 2 [place] 20:30:00 CHEM PANEL 2019-09-16 113 [facility] [place] 20:30:00 - XR CHEST 1 V 2019-08-17 Patient Name: JOSE SHERIFF 15:48:00 Unit No: [id number] EXAMS: CPT: [id number] XR CHEST 1 V 91984 To: Cough Portable AP chest compared to [...] (1548) by:[email or web address] Orig Print D/T: S: 09/11/2019 (1550) BATCH NO: N/A Name: JOSE RAMOS [facility] Phys: 01 - Victor Manuel Crystal APR [address] : 1985 Age: 34 Sex: [place] [id number] Loc: N.ERS Exam Date: 09/11/2019 Status: REG ER PH: FAX: PAGE 1 Signed Report - XR CHEST 1 V 2019-07-18 Patient Name: JOSE TAVARES 13:03:00 Unit No: [id number] EXAMS: CPT: [id number] XR CHEST 1 V 88465 CHEST 1 VIEW HISTORY: cough COMPARISON: 08/04/2019. FINDINGS: Cardiac silhouette is normal size. No pulmonary vascular congestion seen. No consolidation or large pleural effusion. No pneumothorax. IMPRESSION: No acute chest findings. at 1303 Reported and signed by: Maru Gold MD CC: Aquiles Bell MD; GENERIC FOR [facility]; Antonino Urbina MD Technologist: Daryl Pearson Fluoro Time: DAP (Gy m2): Air Kerma (mGy): Trscr Dt/Tm: 08/06/2019 (1303) by:[email or web address] Orig Print D/T: S: 08/06/2019 (1726) BATCH NO: N/A Name: JOSE RAMOS [facility] [place] Phys: [id number] Antonino Urbina MD [address] [facility] : 1985 Age: 34 Sex: M [id number] Loc: T.ERS Exam Date: 08/06/2019 Status: REG ER PH: FAX: PAGE 1 Signed Report - XR CHEST 1 V 2019-07-17 Patient Name: JOSE BUTLER 11:27:00 Unit No: [id number] EXAMS: CPT: [id number] XR CHEST 1 V 20842 CHEST, 1 VIEW, AP PORTABLE: HISTORY: COUGH COMPARISON: 07/10/2019 FINDINGS: The lungs are clear and the cardiovascular silhouette is normal. No pleural effusion or pneumothorax is present. IMPRESSION: Normal chest. There has been no significant change since the previous examination. at 1127 Reported and signed by: Ab Beltre MD CC: Aquiles Bell MD; Alpesh Andrade MD Technologist: Santo Goodman Time: DAP (Gy m2): Air Kerma (mGy): Trscr Dt/Tm: 08/04/2019 (1127) by:[email or web address] Orig Print D/T: S: 08/04/2019 (1130) BATCH NO: N/A Name: JOSE RAMOS [facility] ED Phys: Alpesh Vaughan MD Kalpana Kumari : 1985 Age: 34 Sex: M [place] [id number] Loc: N.ERS Exam Date: 08/04/2019 Status: REG ER PH: FAX: PAGE 1 Signed Report - XR CHEST 2 V 2019-06-17 Patient Name: JOSE SAAVEDRA 19:27:00 Unit No: [id number] EXAMS: CPT: [id number] XR CHEST 2 V 42409 CHEST RADIOGRAPHS - 2 view COMPARISON: April 30, 2019 CLINICAL HISTORY: COUGH. FINDINGS: Cardiac silhouette is normal in size. The hilar regions and pulmonary vasculature are unremarkable. No consolidation or effusion is seen. IMPRESSION: No acute disease. at 1927 Reported and signed by: Jim Jimenez MD CC: Aquiles Bell MD Technologist: Angelique Goodman Time: DAP (Gy m2): Air Kerma (mGy): Trscr Dt/Tm: 07/10/2019 (1926) by:[email or web address] Orig Print D/T: S: 07/10/2019 (193) BATCH NO: N/A Name: JOSE RAMOS [facility] ED Phys: EDDOC - EDDOC, GENERIC FOR EDM Kalpana Kumari : 1985 Age: 34 Sex: [place] [address] Loc: N.ERS Exam Date: 07/10/2019 Status: PRE ER PH: FAX: PAGE 1 Signed Report - XR CHEST 2 V 2019-04-16 Patient Name: JOSE SAAVEDRA 00:16:00 Unit No: [id number] EXAMS: CPT: [id number] XR CHEST 2 V 76809 CHEST 2 VIEWS, 04/30/2019. COMPARISON: 04/06/2019 CLINICAL: [...] (0019) BATCH NO: N/A Name: JOSE RAMOS A [facility] Phys: Magaly Coleman LEAD RELAY TESTER [address] [facility] : 1985 Age: 34 Sex: [place] [id number] Loc: N.ERS Exam Date: 04/29/2019 Status: PRE ER PH: FAX: PAGE 1 Signed Report CHEM PANEL 2019-03-19 94 [facility] 1 [place] 23:52:00 CHEM PANEL 2019-03-19 12 [facility] 1 [place] 23:52:00 CHEM PANEL 2019-03-19 1.07 [facility] 1 [place] 23:52:00 CHEM PANEL 2019-03-19 143 [facility] 1 [place] 23:52:00 CHEM PANEL 2019-03-19 4.0 [facility] 1 [place] 23:52:00 CHEM PANEL 2019-03-19 111 [facility] 1 [place] 23:52:00 CHEM PANEL 2019-03-19 27 [facility] 1 [place] 23:52:00 CHEM PANEL 2019-03-19 8.6 [facility] 1 [place] 23:52:00 CHEM PANEL 2019-03-19 6.3 [facility] [place] 23:52:00 CHEM PANEL 2019-03-19 3.4 [facility] 1 [place] 23:52:00 CHEM PANEL 2019-03-19 31 [facility] 1 [place] 23:52:00 CHEM PANEL 2019-03-19 18 [facility] 1 [place] 23:52:00 CHEM PANEL 2019-03-19 70 [facility] [place] 23:52:00 CHEM PANEL 2019-03-19 0.4 [facility] 1 [place] 23:52:00 CHEM PANEL 2019-03-19 9.0 [facility] 1 [place] 23:52:00 CHEM PANEL 2019-04-07 23:52:00 Test Item Value Reference Range Interpretation Comme nts B/C Ratio (test code = B/C Ratio) 11 1 6-25 [facility] [id number] 23:52:002.9[facility] PANEL 2019-04-07 23:52:00 Test Item Value Reference Range Interpretation Comments A/G Ratio (test code = A/G Ratio) 1.2 1 0.7-1.6 [facility] [id number] 23:52:0091[facility]ann[facility] PANEL 2019-04-07 23:52:90628Eunjlwgm NvypltvWQPDFZBGBK7416-32-91 23:52:009.5[facility] DzddxvzJKQBPRKUXK0957-18-28 23:52:005.61[facility] TkcgawbRWPPUIYBQG6194-38-66 23:52:0017.5[facility] FzsijafMRZSYTYSWH9421-55-93 23:52:0051.8[facility] DWSLOQPUAG0692-14-44 23:52:0092.4[facility] MmqwnbiYQGYOCQYEH6260-43-65 23:52:00 Test Item Value Reference Range Interpretation Comments MCH (test code = MCH) 31.1 pg 27.0-31.0 [facility] LfbdmgeDMDVUYOPPH9999-16-41 23:52:0033.7[facility]ann[facility]MATOLOGY 2019-04-07 23:52:0013.8[facility] DsjuzhwQNSFTSRJWW2211-69-38 23:52:38698Sholabyp SiiovdiACVOOKCVJN3582-95-66 23:52:008.9[facility] SwjwvsvZPORJZGTPZ5525-07-45 23:52:0061.1[facility] FlpluqhMVDPZPWFKC8929-60-28 23:52:0030.2[facility] [place] PYKKMRRIJR6461-53-30 23:52:006.0[facility] BzfluubYVQQAPFPWR7323-70-29 23:52:002.1 [facility] TdzjqukLTUDOCUSBB8599-21-62 23:52:000.6[facility]ann[facility]MATOLOGY 2019-04-07 23:52:005.8[facility] KbqzauyLVVJUKCREJ5449-61-43 23:52:002.9[facility] EgsktnxKVJNLIOCXA2631-80-93 23:52:000.6[facility] AzwfplwMQFQXCVTEB4319-37-36 23:52:000.2[facility] VrtmpckBLEDUFUAAI5958-37-25 23:52:000.1[facility]- XR CHEST 2 [id number] 17:53:00Patient Name: JOSE RAMOS Unit No: [id number] EXAMS: CPT: [id number] XR CHEST 2 V 08982 Comparison study: 03/18/2019 History: Cough CHEST 2 [...] SALAZAR PITTMAN Fluoro Time: DAP (Gy m2): AirKerma (mGy): Trscr Dt/Tm: 04/06/2019 (1752) by:[email or web address] Orig Print D/T: S: 04/06/2019 (1755) BATCH NO: N/A Name: JOSE RAMOS [facility] Phys: KAIKE. - Victor Manuel Crystal APR [address] : 1985 Age: 34 Sex: [place] [address] Loc: N.ERS Exam Date: 04/06/2019 Status: REG ER PH: FAX: PAGE 1 Signed Report- XR CHEST 2 [id number] 22:53:00Patient Name: JOSE RAMOS Unit No: [id number] EXAMS: CPT: [id number] XR CHEST 2 V 48279 CHEST 2 VIEWS, 03/18/2019. COMPARISON: None. CLINICAL: Cough. COMMENT: The heart, mediastinum, hilar regions and pulmonary vasculature appear within normal limits. The lungs are free of active disease. The bony thorax is intact. IMPRESSION: No evidence to suggest active cardiopulmonary disease. at 2253 Reported and signed by: Eh Morales MD CC: Technologist: Doreen Goodman Time: DAP(Gy m2): Air Kerma (mGy): Trscr Dt/Tm: 03/18/2019 (2252) by:[email or web address] Orig Print D/T: S: 03/18/2019 (2346) BATCH NO: N/A Name: JOSE RAMOS [facility] Phys: Magaly Coleman LEAD RELAY TESTER [address] : 1985 Age: 34Sex: [place] [address] Loc: N.ERS Exam Date: 03/18/2019 Status: REG ER PH: FAX: PAGE 1 Signed ReportTroponin [id number] 18:49:54 Test Item Value Reference Range Interpretation Comments Troponin-I (test <0.05 ng/mL 0.00-0.05 Values of < 0.05 ng/mL code = Troponin-I) are consi dered negative. Values 0.40 n g/mL are considered shashi cative of myocardial inju ry. Values 0.05 t o 0.39 ng/mL are indet erminate. XR Chest 1 View [id number] 18:45:45Patient: JOSE RAMOS Date/Time10/30/2018 18:04 CDTReason for [...] PSigned (Electronic Signature): 10/30/2018 6:45 pmUrine Drug [id number] 18:34:55 Test Item Value Reference Range Interpretation [...] = U TCA) NEG N Comprehensive Metabolic [id number] 18:34:39 Test Item Value Reference Range Interpretation [...] National Kidney Foundation,http ://nkd ep.nih.gov Comprehensive Metabolic [id number] 18:34:39 Test Item Value Reference Range Interpretation [...] been validated by e MDRD study and tarik d be [...] been validated by e MDRD study and tarik d be interpretedwith caution.eGFR Re sult Interpretation: eGFR > or = 60 is in t he Normal RangeeGF R < 60 may mean kidney diseaseeGFR < 1 5 may mean kidney failureRange s recommended by the [employer],[email or web address] :[email or web address] [email or web address].nih.gov Comprehensive Metabolic [id number] 18:34:39 Test Item Value Reference Range Interpretation [...] ars ofage have not been validated by [facility] MDRD study and shoul d be interpretedwith [...] ars ofage have not been validated by [facility] MDRD study and quianaul d be interpretedwith caution.eGFR Re sult Interpretation: eGFR > or = 60 is in t he Normal RangeeGF R < 60 may mean kidney diseaseeGFR < 1 5 may mean kidney failureRange s recommended by the [employer],http :[email or web address] [email or web address].nih.gov Automated [id number] 18:34:39 Test Item Value Reference Range Interpretation Comments Neutro Auto (test code = Neutro 47 % 36-70 Auto) Lymph Auto (test code = Lymph 42 % 12-44 Auto) Williams Auto (test code = Williams Auto) 7 % 0-11 Eos, Auto (test code = Eos, Auto) 4 % 0-7 Basophil Auto (test code = 0 % 0-2 Basophil Auto) Neutro Absolute (test code = 4.7 K/cumm 1.6-7.4 Neutro Absolute) Lymph Absolute (test code = Lymph 4.3 K/cumm 0.5-4.6 Absolute) Williams Absolute (test code = Williams 0.7 K/cumm 0.0-1.2 Absolute) Eos Absolute (test code = Eos 0.35 K/cumm N Absolute) Baso Absolute (test code = Baso 0.02 K/cumm 0.00-0.21 Absolute) Complete Blood Count with Kkcaufcdudop4714-99-48 18:34:38 Test Item Value Reference Range Interpretation [...] (test code = 10.1 N Instr WBC) CHEM HQDSZ1588-28-55 04:17:0093[facility] NPVLS9901-41-93 04:17:0088 [facility] NCQVF3240-56-51 04:17:009.6[facility]annCHEM PANEL 2018-08-21 04:17:0026[facility]annCHE[facility] LTAPO5904-64-08 04:17:0016[facility]CHE[facility] WXFZV2002-41-86 04:17:001.06[facility]CHE[facility] XJFMW3236-29-23 04:17:54345Ggzrxpvy HermannCHEM CWBXC6236-89-20 04:17:004.0[facility]annCHE[facility] EPHBA2824-96-51 04:17:94955Ftcfbvxp [facility]annCHEM VNNNO1269-60-70 04:17:004.5 [facility] QJEDL6293-87-88 04:17:008.2[facility]annCHEM PANEL 2018-08-21 04:17:0039[facility]annCHE[facility] FAJWP9188-90-32 04:17:0020[facility]annCHEM OBOCK9141-21-89 04:17:000.3[facility]annCHE[facility] ACBKO9388-59-72 04:17:0089[facility]annCHE[facility] JYDXR5442-10-65 04:17:003.7[facility]annCHE[facility] EMLSZ4819-29-14 04:17:00 Test Item Value Reference Range Interpretation Comments B/C Ratio (test code = B/C Ratio) 15 1 6-25 [facility]CHE[facility] TOBBC8931-12-92 04:17:0012.0[facility]annCHEM PANEL 2018-08-21 04:17:00 Test Item Value Reference Range Interpretation Comments A/G Ratio (test code = A/G Ratio) 1.2 1 0.7-1.6 [facility] TbgxiwxYJTOLGGBJN0645-19-60 04:17:0013.4[facility]annHEMATOLOGY 2018-08-21 04:17:0033.8[facility] IqxnvmwSDHJCOXHCD3916-27-66 04:17:00 Test Item Value Reference Range Interpretation Comments MCH (test code = MCH) 30.6 pg 27.0-31.0 [facility] AhscfxiCMFGTNPUVK7380-99-32 04:17:0048.5[facility]annHEMATOLOGY 2018-08-21 04:17:0016.4[facility] ZzwryvjHSGKVEEUBU1495-10-69 04:17:0090.7[facility] OwonkngOZVCZASOEN4997-23-07 04:17:06205Byvygiqw JanpvimPRHXOQUBIJ0765-69-29 04:17:009.5[facility] YhxyuoxHHWSZCUVRY0805-35-66 04:17:005.35[facility] LGGDJXIFDX6085-37-27 04:17:009.5[facility] ArtliokAGENLZSQNZ9175-87-68 04:17:000.1 [facility] YqswhmyWQBNDDVRGE8315-44-67 04:17:000.4[facility]annHEMATOLOGY 2018-08-21 04:17:000.6[facility] QkulsnnISRMJLHMEL0344-98-37 04:17:0033.4[facility] XuvzbkxYJNHTGIZUT7627-62-59 04:17:0055.2[facility] GgsxkqiFPECQWPZWO0116-77-52 04:17:006.3[facility] RvfdamcFWKNGWDNLN7402-54-44 04:17:000.8[facility] BCIGZRJDPK1861-84-82 04:17:004.3[facility] RmdkrfsWAYADBDAUS1078-93-05 04:17:003.2 [facility] CrztmzlECMLPQLWHH7297-01-61 04:17:005.3[facility] STOOL 2018-08-21 04:17:00 Test Item Value Reference Range Interpretation Comments UA pH (test code = UA pH) 6.0 1 5.0-8.0 [facility] GHEGU2366-69-16 04:17:00 Test Item Value Reference Range Interpretation Comments UA Spec Grav (test code = UA Spec 1.009 1 Grav) [facility] THAKC8291-03-72 04:17:00Clear (08/20/18 11:17 PM) [facility] WDMCD8586-83-64 04:17:00Negative (08/20/18 11:17 PM) [facility] RRRTD1021-94-53 04:17:00Negative (08/20/18 11:17 PM) [facility] IYTPX0882-60-18 04:17:00Negative *NA*(08/20/18 11:17 PM) [facility] XTBDS0468-87-72 04:17:00Negative (08/20/18 11:17 PM) [facility] MfsesazFWTRTOFRSLNW8141-20-58 15:47:0013.4[facility] HermannELECTROLYTES 2018-08-19 15:47:67960Cxmwpuyd UvydrktGXLDWZTAVEFD2323-66-11 15:47:008.8[facility] FgbskdaNDLKKDMYVIDS9363-37-97 15:47:0026[facility] RxnuoccYKQARCUJVVUB4604-70-25 15:47:14833Smdviglx BgtsnnjWZKLENIXUWQV6203-77-97 15:47:24116Zvqfaybn Jovon IOOYHXGEJICR3496-72-58 15:47:004.4[facility] LzkexorHWNTXNDFUHCP1579-24-96 15:47:000.98[facility] KyesvmuDFUJIEEUCQJW0439-71-01 15:47:0013[facility] EQPHSGKFUCRO1509-93-48 15:47:0094[facility] AjndsluPETJIGMPIA4824-37-68 15:47:00 0.4[facility] KhfogxbTTAJWYXAXR5123-34-15 15:47:000.4[facility]annHEMATOLOGY 2018-08-19 15:47:002.4[facility] EgplogrWTYDAZWZKA5723-42-09 15:47:000.6[facility] AmmgwhzVDBRBFXETE7688-77-74 15:47:003.7[facility] UbvqsmtKBQPYGZTZH4143-37-60 15:47:0053.5[facility] JlbwfcsUCXDYUOVBL1601-62-69 15:47:0034.7[facility] GWRPMOMSUL6670-89-13 15:47:005.6[facility] OvldebdFNXFGZMIBZ8653-78-92 15:47:005.6 [facility] RuqbhwzKNFYYRBPGU2652-51-50 15:47:0010.0[facility]annHEMATOLOGY 2018-08-19 15:47:78934Fvackrfd BvmruouHOBDXNMJVL2866-33-32 15:47:007.0[facility] EdeotkoXRCZQGBUMJ9187-47-43 15:47:004.77[facility] GctcgevIMMCEXYVMS7365-25-54 15:47:0013.5[facility] JquzyhcYBQDFOXLTO0930-53-30 15:47:0044.1[facility] UIWHJUJWCQ7564-10-85 15:47:00 Test Item Value Reference Range Interpretation Comments MCH (test code = MCH) 30.8 pg 27.0-31.0 [facility] NaeqwlxJJKWKQQMBG3862-15-59 15:47:0092.4[facility]annHEMATOLOGY 2018-08-19 15:47:0014.7[facility] MulvgebFCKFXWGOZQ9112-45-58 15:47:0033.4[facility] HermannNM Myocardial SPECT Rest and Giqbpp8703-47-84 15:00:41Patient: JOSE RAMOS Date/Time05/17/201814:35 CDTReason for ExamAngina [...] of 0.65Impression:Normal exercise treadmill stress Cardiolite Final Dict ated by: MD Rondon Domingo GDictated DT/TM: 05/17/2018 2:59 pmSigned by: MD Rondon Domingo GSigned (Electronic Signature): 05/17/2018 3:00 pmANEMIA RLXDD6745-63-97 10:51:63173Ttxgmxvf HermannCARDIAC KQQLRDK8427-97-98 10:51:00 <0.02[facility]annCHEM RXOQA7780-24-61 10:51:0026.0[facility] HermannDRUG CMWDUA6999-82-99 06:53:00Negative *NA*(02/20/18 12:53 AM)[facility]annDR[facility] RSEGST3509-25-81 06:53:00Positive *ABN*(02/20/18 12:53 AM)[facility]annDR[facility] IUCNXE2866-52-87 06:53:00Negative *NA*(02/20/18 12:53 AM)[facility]annDR[facility] DWCMZZ3475-60-76 06:53:00Positive *ABN*(02/20/18 12:53 AM)[facility]annDR[facility] YLRJCX5633-79-55 06:53:00Positive *ABN*(02/20/18 12:53 AM)[facility]DR[facility] HLSQVG7603-72-11 06:53:00See Note (02/20/18 12:53 AM)[facility]annDR[facility] SCREEN 2018-02-20 06:53:00Negative *NA*(02/20/18 12:53 AM)[facility]annDR[facility] SCREEN 2018-02-20 06:53:00Negative *NA*(02/20/18 12:53 AM)[facility]annCARDIAC ENZYMES 2018-02-20 05:01:00<0.02[facility]annCHEM RPYVJ6185-49-80 05:01:0082 [facility]annCHE[facility] KHKIF8272-57-71 05:01:004.0[facility]annCHEM PANEL 2018-02-20 05:01:0051[facility]annCHEM ILGML5861-22-42 05:01:000.3[facility]annCHEM RWYRK7468-97-86 05:01:0076[facility]annCHEM DVEPD3089-03-12 05:01:0027[facility]annCHEM IRZYH6043-78-00 05:01:71472Agyucirg HermannCHEM UGLDL8422-23-64 05:01:006.9[facility]annCHEM DYFWZ2346-19-83 05:01:008.1 [facility]annCHE[facility] ZWQRH1599-80-47 05:01:0023[facility]annCHEM PANEL 2018-02-20 05:01:27933Waxjkclb HermannCHEM ZXQAR0982-51-78 05:01:003.2[facility]annCHEM FURCV4975-69-30 05:01:001.18[facility]annCHEM SYTJZ8315-36-47 05:01:009[facility]annCHEM RJRHT5391-95-26 05:01:36077Lgezahwb HermannCHEM YFZER3073-97-12 05:01:00 Test Item Value Reference Range Interpretation Comments A/G Ratio (test code = A/G Ratio) 1.4 1 0.7-1.6 [facility]CHE[facility] CFTTO8495-59-66 05:01:00 Test Item Value Reference Range Interpretation Comments B/C Ratio (test code = B/C Ratio) 8 1 6-25 [facility]annCHE[facility] EYNQT7546-01-36 05:01:002.9[facility]annCHEM PANEL 2018-02-20 05:01:0012.2[facility]annCHEM ICGAF8992-90-25 05:01:002.1[facility] SubwdfjFCYYMRKEGD4426-37-27 05:01:000.2[facility] IuucwotBQZFJYCLEM4254-78-46 05:01:000.5[facility] NaklpogNDCITWMQRW5146-46-16 05:01:000.1[facility] WPYFQJKFVY5575-98-54 05:01:004.7[facility] GjlnltjUARSFBRBUR5598-99-09 05:01:00 46.0[facility] WyfsmniOJUPPJZXXY0641-57-61 05:01:0046.5[facility] HermannHEMATOLOGY 2018-02-20 05:01:001.6[facility] AsvtkslIWABHJQGCB8019-03-46 05:01:005.2[facility] XmtvbwqZXMKJPYXRH9053-67-13 05:01:004.7[facility] TtiwkvdNSAAECDVXX2512-55-35 05:01:000.7[facility] YgypvnnTJPHTDFLHO2837-50-84 05:01:009.1[facility] VYWCBCKITV5543-27-69 05:01:66850Ziqcwzce OyqahuwVQDFNIDCDA8683-87-42 05:01:00 15.4[facility] QvnpgptPVZKWPNZIU2011-09-48 05:01:0010.1[facility]annHEMATOLOGY 2018-02-20 05:01:005.11[facility] GcbhkntXNMGJQCSUM7628-47-48 05:01:0046.3[facility] OihmwqpQXISYLLAVZ7588-34-92 05:01:0033.3[facility] BgglxddUBKDXNSEHY9061-31-59 05:01:0014.1[facility] SkzocxjNKCCXFXXUU7714-95-76 05:01:0090.6[facility] VFEYAOINJX4258-96-77 05:01:00 Test Item Value Reference Range Interpretation Comments MCH (test code = MCH) 30.2 pg 27.0-31.0 [facility]annCHEM NZEYD1966-50-44 18:16:78386Hoerykkw HermannCHEM PANEL 2018-01-10 18:16:00 Test Item Value Reference Range Interpretation Comments A/G Ratio (test code = A/G Ratio) 1.1 1 0.7-1.6 [facility] HermannCHEM RFCLY0824-13-35 18:16:00 Test Item Value Reference Range Interpretation Comments B/C Ratio (test code = B/C Ratio) 10 1 6-25 [facility]CHE[facility] GUCFJ4750-55-24 18:16:003.3[facility]annCHEM PANEL 2018-01-10 18:16:0011.2[facility]annCHEM TGHXX2858-19-04 18:16:0089[facility]annCHEM EFXKF6725-93-11 18:16:0081[facility]annCHEM PIYMU4273-99-24 18:16:000.3[facility]annCHEM IQCHX3683-66-85 18:16:006.9[facility]annCHEM IWPFE4928-47-96 18:16:0027[facility]annCHEM QPGGV1575-00-76 18:16:008.5 [facility]annCHEM MZVTY6467-24-68 18:16:0053[facility]annCHEM PANEL 2018-01-10 18:16:0034[facility]annCHEM XFWBP9894-37-48 18:16:003.6[facility]annCHEM FSJPR2501-26-68 18:16:004.2[facility]annCHEM DMWAX1135-51-96 18:16:93558Ydhmvsez HermannCHEM ACSXO7922-09-61 18:16:001.11[facility]annCHEM FMFSF3349-88-76 18:16:25245Tcfjvdpz HermannCHEM YIORH7788-05-54 18:16:0085 [facility]annCHEM MXLQV9885-75-94 18:16:0011[facility]annHEMATOLOGY 2018-01-10 18:16:000.2[facility] QcembzeMJDRQHOZCV4533-91-30 18:16:000.5[facility] JsmwyexOTJHQHQVCQ1281-71-52 18:16:002.6[facility] AlmjfpzDRUJIQUSTU4449-03-64 18:16:004.2[facility] RudygguIVHXJPDHJG8636-96-30 18:16:0055.1[facility] VUPJJYDZLO7861-04-97 18:16:006.8[facility] XoqkibfBGYJZMTVUO2026-48-19 18:16:00 34.7[facility] SkikaqaUFZNNRIZWV0676-37-82 18:16:002.9[facility] HermannHEMATOLOGY 2018-01-10 18:16:000.5[facility] SabjychOVUFPBEMPB1585-96-32 18:16:009.3[facility] XzeypotAVKTQFXLHW9000-51-90 18:16:007.6[facility] MswtlgiYIDGLPRYPM8598-26-19 18:16:0092.1[facility] FcrrhfaJBDQRJJEGG9829-03-69 18:16:0016.9[facility] YIBKCHMYRT9597-97-20 18:16:0051.0[facility] NlxspcvRMASPWMDAB8630-57-76 18:16:00 14.0[facility] LrrstbfTVJPJRVLCM7370-93-67 18:16:0033.0[facility]annHEMATOLOGY 2018-01-10 18:16:00 Test Item Value Reference Range Interpretation Comments MCH (test code = MCH) 30.4 pg 27.0-31.0 [facility] EnongsxXEJEUATASJ7885-40-82 18:16:68433Tvoqztus HermannHEMATOLOGY 2018-01-10 18:16:005.54[facility]UR[facility] AND KFZZS1427-89-21 18:16:00<1 [facility] IRKJH4879-69-59 18:16:00Negative (01/10/18 12:16 PM) [facility] FMKLX0939-20-61 18:16:00Negative (01/10/18 12:16 PM) [facility] LYLPJ9507-45-53 18:16:00Performed (01/10/18 12:16 PM) [facility] WITUF5396-75-35 18:16:00 Test Item Value Reference Range Interpretation Comments UA Spec Grav (test code = UA Spec 1.020 1 Grav) [facility] OQONG5487-83-73 18:16:00 Test Item Value Reference Range Interpretation Comments UA pH (test code = UA pH) 6.0 1 5.0-8.0 [facility] ARZTN6588-92-78 18:16:00Negative *NA*(01/10/18 12:16 PM)[facility] UHAKB4438-71-61 18:16:00Negative (01/10/18 12:16 PM)[facility] NYHWE6938-58-75 18:16:00Negative (01/10/18 12:16 PM)[facility] AKAHJ3157-41-40 18:16:00Negative *NA*(01/10/18 12:16 PM)[facility] AIAXO9548-00-98 18:16:00Yellow *NA*(01/10/18 12:16 PM)[facility] RIDBW1476-02-54 18:16:00Clear (01/10/18 12:16 PM)[facility][U] XRAY SPINE LUMBOSACRAL MIN 4 VWS [id number] 15:20:00 Test Item Value Reference Range Interpretation Comments XR SPINE LUMBOSACRAL EXAM: XR SPINE MIN 4 VWS (test code = LUMBOSACRAL MIN 4 VWS 56650-1) DATE: 12/07/2017 4:20 PM CDT INDICATION: Low [...] identified. 12/08/2017 8:26 PM CDT [facility]iciansCHE[facility] TMUCK1135-12-34 02:24:0081[facility] CHEM KDNQS4509-60-33 02:24:0071[facility]annCHEM RAMYN8672-13-25 02:24:0022 [facility]CHE[facility] YUETP3132-26-09 02:24:0037[facility]annCHEM PANEL 2017-11-27 02:24:006.7[facility]annCHEM YZNLZ5011-15-14 02:24:003.6[facility]annCHEM RYSSG0156-66-69 02:24:0030[facility]annCHEM RMZJR6451-73-62 02:24:008.3[facility]annCHEM ZRQLC6680-53-61 02:24:004.2[facility]annCHEM PDZCA1305-87-61 02:24:71215Qrhspocd HermannCHEM WACCM3307-26-36 02:24:001.19 [facility]annCHE[facility] KYHSH4115-70-57 02:24:93548Ucazkktu HermannCHEM PANEL 2017-11-27 02:24:009[facility]annCHEM BISPG0873-68-96 02:24:0092[facility]annCHEM TYJGP9990-03-53 02:24:000.3[facility]annCHEM XYRAY0931-13-99 02:24:0011.2[facility]annCHEM OZRLA7377-39-07 02:24:00 Test Item Value Reference Range Interpretation Comments A/G Ratio (test code = A/G Ratio) 1.2 1 0.7-1.6 [facility]CHE[facility] XONQO3523-20-18 02:24:00 Test Item Value Reference Range Interpretation Comments B/C Ratio (test code = B/C Ratio) 8 1 6-25 [facility]CHE[facility] YADOZ8500-91-38 02:24:003.1[facility]annHEMATOLOGY 2017-11-27 02:24:000.1[facility] AahvettKXSCXBGLTY6515-69-82 02:24:004.3[facility] QcivuwcWZJTQHIPHP3794-80-80 02:24:000.8[facility] OycbkszTGUSMJGLGQ0630-40-50 02:24:000.5[facility] NiuxnprMWBUHHVAPC2333-27-42 02:24:005.5[facility] NNOHFEUPGC2198-44-66 02:24:000.8[facility] MgpbbdrZSWSSNWSVB9916-23-36 02:24:00 40.4[facility] KwsmbntJNTPUWKYTM3654-34-39 02:24:007.2[facility]annHEMATOLOGY 2017-11-27 02:24:0051.1[facility] ArhfzzkTZVBCHGEVR9022-88-38 02:24:008.9[facility] KlgsllnPZMCUYHTFH0182-35-34 02:24:0013.5[facility] KfcuphgJRUZANEQMI3231-12-26 02:24:23960Ndpgnacl FoirccsDXQFLCJSZD1645-64-71 02:24:0033.4[facility] UMEQBIADHU6506-31-17 02:24:0010.7[facility] DrixxblBLFKCJNHCQ2194-76-81 02:24:00 91.8[facility] OcqsyfrLLUMFWOWUI2986-94-11 02:24:00 Test Item Value Reference Range Interpretation Comments MCH (test code = MCH) 30.6 pg 27.0-31.0 [facility] AbkdqrlJPODENUVDW2835-65-35 02:24:0052.2[facility] HermannHEMATOLOGY 2017-11-27 02:24:005.69[facility] MaeiobhLTKQRHMBPL1683-83-30 02:24:0017.4[facility] AND KHHXQ8685-20-30 02:24:00Negative (11/26/17 9:24 PM)[facility] BWGBY6964-66-71 02:24:001[facility] STOOL 2017-11-27 02:24:004[facility] TPUPR6582-73-84 02:24:00 Test Item Value Reference Range Interpretation Comments UA Spec Grav (test code = UA Spec 1.025 1 Grav) [facility] NXBJJ4520-52-38 02:24:00 Test Item Value Reference Range Interpretation Comments UA pH (test code = UA pH) 7.0 1 5.0-8.0 [facility] EVTSH2944-94-59 02:24:00Slight *ABN*(11/26/17 9:24 PM) [facility] AFPXB3751-96-42 02:24:00Yellow *NA*(11/26/17 9:24 PM) [facility] TEDPI9804-28-52 02:24:002.0[facility] XXEUH5432-10-69 02:24:00Negative (11/26/17 9:24 PM)[facility] YAFKE6580-85-93 02:24:00Negative (11/26/17 9:24 PM)[facility] ZNBSP7944-64-48 02:24:00Negative *NA*(11/26/17 9:24 PM)[facility]annCHEM BYDSO3387-94-36 00:14:0097[facility]annCHEM NUEZX5215-52-75 00:14:0081 [facility]annCHE[facility] AAAJV9596-73-41 00:14:009[facility]annCHEM PANEL 2017-11-07 00:14:000.3[facility] HermannCHEM BOEHC2778-25-26 00:14:0034[facility]annCHEM DERXU4750-98-15 00:14:0023[facility] HermannCHEM UKQIX3030-54-51 00:14:0068[facility]annCHEM ETGMB0441-14-52 00:14:006.9[facility] HermannCHEM GLSSJ7742-07-21 00:14:003.7[facility] HermannCHEM PABOK1798-15-86 00:14:008.3 [facility]annCHEM JVHDQ1343-84-81 00:14:0029[facility]annCHEM PANEL 2017-11-07 00:14:003.8[facility]annCHEM WTXPU9127-22-08 00:14:34980Dbhtgzxm HermannCHEM CDIUT2926-43-86 00:14:001.03[facility]annCHEM LHNMS0740-27-67 00:14:90501Jdzrndbq [facility]annCHEM NQZTH5156-67-65 00:14:00 Test Item Value Reference Range Interpretation Comments A/G Ratio (test code = A/G Ratio) 1.2 1 0.7-1.6 [facility]annCHE[facility] CEXPM4112-34-56 00:14:00 Test Item Value Reference Range Interpretation Comments B/C Ratio (test code = B/C Ratio) 9 1 6-25 [facility]annCHE[facility] KQYSV1403-72-12 00:14:003.2[facility]annCHEM PANEL 2017-11-07 00:14:008.8[facility] GbnwhyvJYPUADUNAR1052-97-92 00:14:007.7[facility] OksgqzqUDISSCXPIZ4934-27-89 00:14:0015.6[facility] SdumrphTDMQBYJGRT7439-89-41 00:14:004.97[facility] BinpjquIKJRXLJHJN9494-07-17 00:14:0089.7[facility] ZWJPRDMFDU3908-34-71 00:14:0044.6[facility] FytojmySVSIKARQSD1322-09-65 00:14:00 8.3[facility] DpofjyxOUKXVEBWHD5870-86-36 00:14:34164Rihasprz HermannHEMATOLOGY 2017-11-07 00:14:0013.7[facility] IgvigwxEWNKXKKKGN3810-74-95 00:14:0034.9[facility] MovnmltGJZTRQFYGA4374-77-58 00:14:00 Test Item Value Reference Range Interpretation Comments MCH (test code = MCH) 31.3 pg 27.0-31.0 [facility] RcjbhaqQDZBHNYNZR0905-51-44 00:14:004.3[facility] HermannHEMATOLOGY 2017-11-07 00:14:0052.8[facility] SjzcqifYPYHWVIETC2197-69-98 00:14:0040.3[facility] AhmeiliBAJRNFJUSC2956-64-05 00:14:000.3[facility] FfcwknkUFKNSHUFPP2080-58-86 00:14:003.1[facility] RugqsrhWWAQHJQCXD4796-82-90 00:14:004.1[facility] NWWWHMEJPQ9386-52-08 00:14:000.5[facility] VfxvxsqJFOUTYHLTB7167-56-71 00:14:002.1 [facility] NuwxrbkLTVDFKHSNX0880-39-14 00:14:000.2[facility]UR[facility] STOOL 2017-11-06 23:48:00<1[facility] GZHZB4040-95-66 23:48:001 [facility] CMJZO3136-12-92 23:48:00Negative (11/06/17 6:48 PM) [facility] BIUTU3527-94-77 23:48:00Negative (11/06/17 6:48 PM) [facility] COBLB1713-68-04 23:48:00Negative (11/06/17 6:48 PM) [facility] NQYNG5953-31-55 23:48:00Negative *NA*(11/06/17 6:48 PM) [facility] FZEVO1195-37-48 23:48:00 Test Item Value Reference Range Interpretation Comments UA Spec Grav (test code = UA Spec 1.003 1 Grav) [facility] CDSJJ7307-75-35 23:48:00 Test Item Value Reference Range Interpretation Comments UA pH (test code = UA pH) 6.0 1 5.0-8.0 [facility] ZWIXV1128-46-37 23:48:00[facility] (11/06/17 6:48 PM) [facility]
[2019-11-04] MEDS ORDERED: TETRACAINE HCL 0.5% 4ML OPTH ONE (12:40)
[2019-11-04] MEDS ORDERED: FLUORESCEIN SODIUM 1 MG/WRAP ONE (12:41)
--- NOTE | 2019-11-04 12:51 | EDPHYS ---
Physician Documentation [facility] Name: Camden Mitchell Age: 34 yrs Sex: Male : 1985 Arrival Date: 11/04/2019 Time: 12:05 Bed 18 Private MD: MILAN Physician Jameson Alvarado HPI: 11/03 12:18 This 34 yrs old Male presents to ER via Ambulatory with complaints of Redness jmm of Eye. 12:18 The patient is experiencing pain, redness. Onset: The symptoms/episode began/occurred jmm gradually, 1 day(s) ago. Duration: the symptoms are continuous. Aggravated by nothing. Alleviated by covering eye. Associated signs and symptoms: Pertinent negatives: fever. The patient has not experienced similar symptoms in the past. Patient states he took out his contact lenses once irritation began. Historical: - Allergies: 12:36 Sulfa (Sulfonamide Antibiotics); iw - Home Meds: 12:36 amlodipine 5 mg oral tab once daily [Active]; atorvastatin Oral once daily [Active]; iw lisinopril 5 mg oral tab once daily [Active]; alprazolam 2 mg Oral TbDL twice a day [Active]; - PMHx: 12:36 Bronchitis; Hypertension; Hyperlipidemia; iw - Social history:: Smoking status: . ROS: 12:18 Constitutional: Negative for fever, chills, and weight loss. jmm 12:18 Cardiovascular: Negative for chest pain, palpitations, and edema, Respiratory: Negative for shortness of breath, cough, wheezing, and pleuritic chest pain, Neuro: Negative for headache, weakness, numbness, tingling, and seizure. 12:18 Eyes: Positive for itching, pain, swelling. 12:18 All other systems are negative. Exam: 12:18 Constitutional: This is a well developed, well nourished patient who is awake, alert, jmm and in no acute distress. Head/Face: atraumatic. 12:18 Cardiovascular: Regular rate and rhythm. No edema appreciated Respiratory: Normal respirations, no respiratory distress appreciated Abdomen/GI: Non distended, soft Back: Normal ROM Skin: General appearance color normal MS/ Extremity: Moves all extremities, no obvious deformities appreciated, no edema noted to the lower extremities Neuro: Awake and alert, normal gait Psych: Behavior is normal, Mood is normal, Patient is cooperative and pleasant 12:18 Eyes: Conjunctiva: injected, Corneas: are normal, a fluorescein strip employed to appreciate the findings. Vital Signs: 12:33 BP 135 / 97; Pulse 105; Resp 16 S; Temp 98.3; Pulse Ox 100% on R/A; Weight 97.52 kg; iw Height 5 ft. 5 in. (165.10 cm); Pain 9/10; 12:33 Body Mass Index 35.78 (97.52 kg, 165.10 cm) MDM: 12:18 Patient medically screened. [facility] 12:37 Data reviewed: vital signs, nurses notes. [facility] 12:50 Counseling: I had a detailed discussion with the patient and/or guardian regarding: the [facility] historical points, exam findings, and any diagnostic results supporting the discharge/admit diagnosis, the need for outpatient follow up, to return to the emergency department if symptoms worsen or persist or if there are any questions or concerns that arise at home. 11/03 12:37 Order name: Eye Tray; Complete Time: 12:39 [facility] 11/03 12:37 Order name: Fluoresene Opth strip; Complete Time: 12:39 [facility] Administered Medications: 12:45 Drug: Tetracaine Drops 0.5 % 1 drops Route: Ophthalmic; Site: left eye; Disposition: 11/04 07:29 Co-signature as Attending Physician, Jameson Alvarado MD I agree with the assessment and [facility] plan of care. Disposition: 11/04/19 12:50 Discharged to Home. Impression: Other acute conjunctivitis. - Condition is Stable. - Discharge Instructions: Bacterial Conjunctivitis. - Prescriptions for Ocuflox 0.3 % Ophthalmic Drops - instill 2 drop by OPHTHALMIC route every 6 hours for 2 days; 15 milliliter. - Medication Reconciliation Form, Thank You Letter, Antibiotic Education, Prescription Opioid Use form. - Follow up: Private Physician; When: 2 - 3 days; Reason: Recheck today's complaints, Continuance of care, Re-evaluation by your physician. Signatures: Jameson Alvarado MD MD cha Mickail, Joel, PA PA [facility] Naty Dos Santos RN RN Maya Tenorio RN RN rb1 Corrections: (The following items were deleted from the chart) 11/03 12:58 12:50 11/04/2019 12:50 Discharged to Home. Impression: Other acute conjunctivitis. rb1 Condition is Stable. Forms are Medication Reconciliation Form, Thank You Letter, Antibiotic Education, Prescription Opioid Use. Follow up: Private Physician; When: 2 - 3 days; Reason: Recheck today's complaints, Continuance of care, Re-evaluation by your physician. fidelia
--- NOTE | 2019-11-04 12:51 | ER ---
Nurse's Notes [facility] Name: Camden Mitchell Age: 34 yrs Sex: Male : 1985 Arrival Date: 11/04/2019 Time: 12:05 Bed 18 Private MD: Diagnosis: Other acute conjunctivitis Presentation: 11/03 12:33 Chief complaint: Patient states: pain, irritation to left eye since yesterday after iw wearing contact. Coronavirus screen: At this time, the client does not indicate any symptoms associated with coronavirus-19. Ebola Screen: Patient negative for fever greater than or equal to 101.5 degrees Fahrenheit, and additional compatible Ebola Virus Disease symptoms Patient denies exposure to infectious person. Patient denies travel to an Ebola-affected area in the 21 days before illness onset. No symptoms or risks identified at this time. Initial Sepsis Screen: Does the patient meet any 2 criteria? No. Patient's initial sepsis screen is negative. Does the patient have a suspected source of infection? No. Patient's initial sepsis screen is negative. Risk Assessment: Do you want to hurt yourself or someone else? Patient reports no desire to harm self or others. Onset of symptoms was November 03, 2019. 12:33 Method Of Arrival: Ambulatory iw 12:33 Acuity: JENNIFER 4 iw Historical: - Allergies: 12:36 Sulfa (Sulfonamide Antibiotics); iw - Home Meds: 12:36 amlodipine 5 mg oral tab once daily [Active]; atorvastatin Oral once daily [Active]; iw lisinopril 5 mg oral tab once daily [Active]; alprazolam 2 mg Oral TbDL twice a day [Active]; - PMHx: 12:36 Bronchitis; Hypertension; Hyperlipidemia; iw - Social history:: Smoking status: . Screenin:53 Abuse screen: Denies threats or abuse. Denies injuries from another. Nutritional iw screening: No deficits noted. Tuberculosis screening: No symptoms or risk factors identified. Fall Risk None identified. Assessment: 12:51 General: Appears in no apparent distress. Behavior is calm, cooperative. Pain: iw Complains of pain in left eye. Neuro: Level of Consciousness is awake, alert, obeys commands, Oriented to person, place, time, situation, Moves all extremities. Full function. Cardiovascular: Patient's skin is warm and dry. Respiratory: Respiratory effort is even, unlabored. EENT: Eyes are tearing on outer aspect of conjuctiva of left eye, iris of left eye and inner aspect of conjunctiva of left eye Sclera/Cornea are reddened in outer aspect of conjuctiva of left eye, iris of left eye and inner aspect of conjunctiva of left eye. Derm: Skin is intact, is healthy with good turgor. Musculoskeletal: Range of motion: intact in all extremities. Vital Signs: 12:33 BP 135 / 97; Pulse 105; Resp 16 S; Temp 98.3; Pulse Ox 100% on R/A; Weight 97.52 kg; iw Height 5 ft. 5 in. (165.10 cm); Pain 9/10; 12:33 Body Mass Index 35.78 (97.52 kg, 165.10 cm) ED Course: 12:05 Patient arrived in ED. bg2 12:16 Rios Negrete PA is PHCP. charu 12:16 Jameson Alvarado MD is Attending Physician. [facility] 12:30 Patient has correct armband on for positive identification. Bed in low position. Call rb1 light in reach. Side rails up X 1. Pulse ox on. NIBP on. 12:34 Triage completed. iw 12:34 Arm band placed on. iw 12:51 Naty Dos Santos, RN is Primary Nurse. iw 12:53 Assist provider with eye exam of left eye. using fluorescein stain, Performed by Rios MERINO Patient tolerated well. Patient did not have IV access during this emergency room visit. Administered Medications: 12:45 Drug: Tetracaine Drops 0.5 % 1 drops Route: Ophthalmic; Site: left eye; Outcome: 12:50 Discharge ordered by . [facility] 12:57 Discharged to home ambulatory, with family. rb1 12:57 Condition: stable 12:57 Discharge instructions given to patient, Instructed on discharge instructions, follow up and referral plans. medication usage, Demonstrated understanding of instructions, follow-up care, medications, Prescriptions given X 1. 12:58 Patient left the ED. rb1 Signatures: Rios Negrete PA PA jmm Williams, Irene, RN MARY Sinai Rausch bg2 Maya Tenorio RN RN rb1
[2019-11-04 13:02] VITALS: BP 135/97; TEMP 98.3; O2SAT 100
== END 2019-11-04 12:58 | disposition home or self-care (01) ==
LOC: ER 11:51
DX: H10.32 Unspecified acute conjunctivitis, left eye (principal); I10 Essential (primary) hypertension; E78.5 Hyperlipidemia, unspecified; Z88.2 Allergy status to sulfonamides
CPT/HCPCS: 99284